=== PATIENT | female | born 1935 | race Caucasian/White ===

== ENCOUNTER 2016-10-20 08:37 | Outpatient (CLI) | payer MEDICARE, OTHER | END 2016-10-20 08:38 | disposition home or self-care (01) | DX: I48.0 Paroxysmal atrial fibrillation (principal) ==

== ENCOUNTER 2017-02-24 08:33 | Outpatient (CLI) | payer MEDICARE, OTHER ==
[2017-02-24 12:02] LABS: CREATININE 0.7 mg/dL (0.4-1.0)
== END 2017-02-24 08:34 | disposition home or self-care (01) ==
LOC: LAB.F 08:33
PROVIDERS: ATTEND Nurse Practitioner
DX: I48.0 Paroxysmal atrial fibrillation (principal)
CPT/HCPCS: 36415; 82565

== ENCOUNTER 2017-04-24 10:19 | Inpatient (IN) | payer MEDICARE, OTHER ==
[2017-04-24] MEDS ORDERED: IPRATROPIUM/ALBUTEROL 3 ML NEB INH STA (10:33)
--- NOTE | 2017-04-24 10:36 | ED Physician Documentation ---
PD HPI DYSPNEA - Stated complaint Stated Complaint: COUGH/SOA - Chief complaint Chief Complaint: Resp - History obtained from History obtained from: Patient, Family (Spouse) - History of Present Illness Timing - onset: How many days ago (4) Timing - duration: Days (4) Timing - details: Gradual onset Worsened by: Coughing Associated symptoms: Fever, Cough Similar symptoms before: Has not had sx before - Additional information Additional information: The patient is a pleasant 82-year-old female who presents with cough and shortness of breath of 4 days duration. Her cough is productive of sputum, and has been getting progressively worse over the past 4 days. She reports intermittent fever and chills. She denies chest pain, nausea or vomiting, or leg swelling. She denies history of similar symptoms in the past. Her past medical history is significant for atrial fibrillation, for which she is on a atenolol and Xarelto. Review of Systems Constitutional: reports: Fever, Chills Nose: denies: Congestion Throat: reports: Sore throat (Mild) Cardiac: denies: Chest pain / pressure, Palpitations Respiratory: reports: Dyspnea, Cough GI: denies: Abdominal Pain, Nausea, Vomiting : denies: Dysuria Skin: denies: Rash Musculoskeletal: denies: Back pain, Extremity swelling Neurologic: denies: Focal weakness, Numbness, Headache PD PAST MEDICAL HISTORY - Past Medical History Past Medical History: Yes Cardiovascular: Hypertension, High cholesterol, Atrial fibrillation Respiratory: None Endocrine/Autoimmune: None GI: None : None HEENT: Glaucoma, Macular degeneration Psych: None Musculoskeletal: Osteoporosis Derm: None - Past Surgical History Past Surgical History: Yes 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, 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 HEENT: Cataracts, Tonsil/Adenoidectomy - Present Medications Home Medications: Ambulatory Orders Medication Instructions Recorded Confirmed Atenolol [Tenormin] 25 mg PO DAILY 04/24/17 04/24/17 Atorvastatin Calcium 20 mg PO DAILY 04/24/17 04/24/17 Bimatoprost [Lumigan] DAILY 04/24/17 Rivaroxaban [Xarelto] 20 mg PO DAILY 04/24/17 04/24/17 Timolol Maleate/Pf [Timoptic 0.25% 1 drops BID 04/24/17 04/24/17 Ocudose Drop] - Allergies Allergies/Adverse Reactions: Allergies Allergy/AdvReac Type Severity Reaction Status Date / Time morphine Allergy Intermediate Nausea Verified 04/24/17 10:26 - Living Situation Living Situation: reports: With spouse/s.o. Living Arrangement: reports: At home - Social History Does the pt smoke?: No Smoking Status: Never smoker PD ED PE NORMAL - Vitals Vital signs reviewed: Yes (Systolic hypertension initially.) - General General: Alert and oriented X 3, Well developed/nourished - HEENT HEENT: Atraumatic, EOMI, Pharynx benign - Neck Neck: Supple, no meningeal sign, No adenopathy, No JVD - Cardiac Cardiac: RRR, No murmur - Respiratory Respiratory: Other (Faint expiratory wheezes, with crackles, worse on the left than the right.) - Abdomen Abdomen: Soft, Non tender - Back Back: No CVA TTP - Derm Derm: No rash - Extremities Extremities: No edema, No calf tenderness / cord - Neuro Neuro: Alert and oriented X 3, No motor deficit, Normal speech Results - Vitals Vitals: Vital Signs - 24 hr 04/24/17 04/24/17 04/24/17 10:23 10:45 11:45 Temperature 37 C Heart Rate 62 76 81 Respiratory 20 16 16 Rate Blood Pressure 173/67 H O2 Saturation 97 04/24/17 04/24/17 04/24/17 13:35 13:45 14:00 Temperature 37.7 C H Heart Rate 87 82 Respiratory 18 16 Rate Blood Pressure 159/55 H O2 Saturation 97 04/24/17 17:04 Temperature Heart Rate 116 H Respiratory Rate Blood Pressure 158/78 H O2 Saturation 95 Oxygen O2 Source Room air - EKG (time done) 10:40 Rate: Rate (enter#) (75) Rhythm: NSR, LAE [place]: Normal QRS: Normal Ischemia: Normal ST segments Computer interpretation: Agree with computer - Labs Labs: Laboratory Tests 04/24/17 04/24/17 04/24/17 10:52 10:52 12:37 WBC 23.3 H RBC 4.24 Hgb 12.8 Hct 38.7 MCV 91.2 MCH 30.2 MCHC 33.2 RDW 13.7 Plt Count 289 MPV 7.8 L Neut # 19.9 H Lymph # 0.8 L [place] # 2.2 H Eos # 0.2 Baso # 0.1 Absolute Nucleated RBC 0.01 Nucleated RBCs 0.0 WBC Morphology NORMAL APPEARANCE Platelet Estimate NORMAL (130-450,000) Platelet Morphology NORMAL APPEARANCE RBC Morph Micro Appear NORMAL APPEARANCE Sodium 132 L Potassium 4.3 Chloride 96 L Carbon Dioxide 29 Anion Gap 7.0 BUN < 5 L Creatinine 0.8 Estimated GFR (MDRD) 69 L Glucose 128 H Lactic Acid Calcium 9.3 Total Bilirubin 0.6 AST 31 ALT 27 Alkaline Phosphatase 72 Total Protein 7.4 Albumin 3.8 Globulin 3.6 Albumin/Globulin Ratio 1.1 Lipase 41 Influenza A (Rapid) Negative Influenza B (Rapid) Negative Influenza Types A,B Ag - 04/24/17 14:37 WBC RBC Hgb Hct MCV MCH MCHC RDW Plt Count MPV Neut # Lymph # [place] # Eos # Baso # Absolute Nucleated RBC Nucleated RBCs WBC Morphology Platelet Estimate Platelet Morphology RBC Morph Micro Appear Sodium Potassium Chloride Carbon Dioxide Anion Gap BUN Creatinine Estimated GFR (MDRD) Glucose Lactic Acid 1.0 Calcium Total Bilirubin AST ALT Alkaline Phosphatase Total Protein Albumin Globulin Albumin/Globulin Ratio Lipase Influenza A (Rapid) Influenza B (Rapid) Influenza Types A,B Ag - Rads (name of study) 2-view CXR Radiology: Prelim report reviewed, EMP read contemporaneously, See rad report ( No acute intrathoracic plain film abnormality. 0.5 cm focal radiopacity at the inferior margin of the lateral right fifth rib on frontal view could represent granuloma or skin calcification. Heart size is normal. There is mild thoracic aortic tortuosity.) PD MEDICAL DECISION MAKING - ED course Complexity details: reviewed results, re-evaluated patient, considered differential, d/w patient, d/w family, d/w configuration consultant ED course: The patient's presentation is most consistent with pneumonia with cough, fever, and dyspnea. Her chest x-ray does not reveal a discrete pulmonary infiltrate. However she has significant sputum production, particularly after nebulizer treatments. Her white count is significantly elevated at 23.3. Her presentation does not suggest congestive heart failure, pulmonary embolus, and her influenza swab is negative. Treatment in the emergency department included DuoNeb nebulizer, followed by albuterol nebulizer, followed later by Xopenex nebulizer. These treatments resulted in increased sputum production and increased pulmonary crackles, particularly on the left. Acetaminophen 1 g was administered orally, and ceftriaxone 1 g was administered IV. I discussed her condition with the hospitalist, who will admit her for further evaluation and treatment. Departure - Departure Disposition: 66 [facility] DC/Xfer Clinical Impression: Bronchitis Pneumonia Qualifiers: Pneumonia type: due to unspecified organism Laterality: unspecified laterality Lung location: unspecified part of lung Qualified Code(s): J18.9 - Pneumonia, unspecified organism Dyspnea Qualifiers: Dyspnea type: shortness of breath Qualified Code(s): R06.02 - Shortness of breath Condition: Stable Discharge Date/Time: 04/24/17 18:00
[2017-04-24] MEDS ORDERED: IPRATROPIUM/ALBUTEROL 3 ML NEB INH ONE (10:43)
[2017-04-24 10:58] LABS: BASOPHILS # (AUTO) 0.1 10^3/uL (0.0-0.1); BASOPHILS % (AUTO) 0.3 %; EOSINOPHILS # (AUTO) 0.2 10^3/uL (0.0-0.7); EOSINOPHILS % (AUTO) 0.9 %; HCT - HEMATOCRIT 38.7 % (37.0-47.0); HGB - HEMOGLOBIN 12.8 g/dL (12.0-16.0); LYMPHOCYTES # (AUTO) 0.8 10^3/uL (1.5-3.5); LYMPHOCYTES % (AUTO) 3.5 %; MEAN CORPUSCULAR HEMOGLOBIN 30.2 pg (27.0-31.0); MEAN CORPUSCULAR HGB CONC 33.2 g/dL (32.0-36.0); MEAN CORPUSCULAR VOLUME 91.2 fL (81.0-99.0); MEAN PLATELET VOLUME 7.8 fL (7.9-10.8); MONOCYTES # (AUTO) 2.2 10^3/uL (0.0-1.0); MONOCYTES % (AUTO) 9.6 %; NEUTROPHILS # (AUTO) 19.9 10^3/uL (1.5-6.6); NEUTROPHILS % (AUTO) 85.7 %; RED BLOOD COUNT 4.24 10^6/uL (4.20-5.40); RED CELL DISTRIBUTION WIDTH 13.7 % (12.0-15.0); UNCORRECTED WHITE BLOOD COUNT 23.3 x10^3/uL; WHITE BLOOD COUNT 23.3 x10^3/uL (4.8-10.8)
[2017-04-24] MEDS ORDERED: cefTRIAXone 1 GM VIAL IVP STA (11:43)
[2017-04-24] MEDS ORDERED: ALBUTEROL NEB 2.5 MG/3 ML INH STA (11:43)
[2017-04-24] MEDS ORDERED: ALBUTEROL NEB 2.5 MG/3 ML INH ONE (11:47)
--- NOTE | 2017-04-24 11:47 | XRAY Preliminary Report ---
Exam: XR Chest 2 View PA/LAT IMPRESSION: 1. No acute intrathoracic plain film abnormality. 2. 0.5 cm focal radiopacity at the inferior margin of the lateral right fifth rib on frontal view cou ld represent granuloma or skin calcification. 3. Heart size is normal. There is mild thoracic aortic tortuosity. [facility] SITE ID: [id number]
[2017-04-24] MEDS ORDERED: cefTRIAXone 1 GM VIAL ONE (11:49)
--- NOTE | 2017-04-24 11:49 | XRAY Report ---
EXAM: CHEST RADIOGRAPHY EXAM DATE: 04/24/2017 11:27 AM. CLINICAL HISTORY: Cough and dyspnea. COMPARISON: 08/07/2011. TECHNIQUE: 2 views. FINDINGS: Lungs/Pleura: No evidence of lobar infiltrate. Small rounded opacity at the inferior margin of the po sterior right fifth rib may represent small granuloma. No pleural effusion. No pneumothorax. Lungs ar e well expanded. Mediastinum: Mild thoracic aortic tortuosity. Heart size is within normal limits. Other: None. IMPRESSION: 1. No acute intrathoracic plain film abnormality. 2. 0.5 cm focal radiopacity at the inferior margin of the lateral right fifth rib on frontal view cou ld represent granuloma or skin calcification. 3. Heart size is normal. There is mild thoracic aortic tortuosity. [facility] Referring Provider Line: [phone] SITE ID: [id number]
[2017-04-24 11:50] LABS: ALBUMIN/GLOBULIN RATIO 1.1 (1.0-2.2); BILIRUBIN,TOTAL 0.6 mg/dL (0.2-1.0); BUN - BLOOD UREA NITROGEN < 5 mg/dL (6-20); CALCIUM 9.3 mg/dL (8.5-10.3); CARBON DIOXIDE - CO2 29 mmol/L (21-32); CHLORIDE 96 mmol/L (101-111); CREATININE 0.8 mg/dL (0.4-1.0); GFR - MDRD 69 (>89); GLUCOSE 128 mg/dL (70-100); LIPASE 41 U/L (22-51); POTASSIUM 4.3 mmol/L (3.5-5.0); SODIUM 132 mmol/L (135-145); TOTAL PROTEIN 7.4 g/dL (6.7-8.2)
[2017-04-24 11:53] LABS: PLATELET ESTIMATE, MANUAL NORMAL (130-450,000) (NORMAL); PLATELET MORPHOLOGY NORMAL APPEARANCE (NORMAL)
[2017-04-24 11:56] LABS: WBC MORPHOLOGY (MULTIPLE) NORMAL APPEARANCE (NORMAL)
[2017-04-24] MEDS ORDERED: LEVALBUTEROL 1.25 MG INH STA (13:31)
[2017-04-24] MEDS ORDERED: SODIUM CHLORIDE INHALATION 3 ML NEB ONE (13:43)
[2017-04-24] MEDS ORDERED: LEVALBUTEROL 1.25 MG INH ONE (13:43)
[2017-04-24] MEDS ORDERED: ACETAMINOPHEN 325 MG TABLET PO STA (14:06)
[2017-04-24] MEDS ORDERED: ACETAMINOPHEN 500 MG TABLET PO ONE (14:09)
[2017-04-24] MEDS ORDERED: SODIUM CHLORIDE FLUSH 0.9% 10 ML SYRINGE IVP PRN (17:20)
[2017-04-24] MEDS ORDERED: ONDANSETRON 4 MG/2 ML VIAL IVP PRN (17:20)
[2017-04-24] MEDS ORDERED: ZOLPIDEM 5 MG TABLET PO PRN (17:20)
--- NOTE | 2017-04-24 17:58 | HISTORY & PHYSICAL EXAMINATION ---
Chief Complaint - Chief Complaint Chief Complaint: dyspnea History of Present Illness - Admitted From Admitted From:: emergence department - History Obtained From History obtained from: patient - History of Present Illness HPI Comment/Other: This is a pleasant 82-year-old female with significant past medical history of Afib with Atenolol and Xarelto, HTN, Hyperlipidemia, Glaucoma, Macular degeneration, osteoporosis, who presents emergence department for evaluation of shortness of breath. Patient report she has been sick with cough and shortness of breath about one week. She felt feverish and chill for last two days but she did not measure the exact temperature. She report her cough is with production of sputum, color of sputum is white. She report she also feel difficult to cough out the sputum. her cough and shortness of murray has been getting progressively worse over the past 4 days. She denies chest pain, headache, muscle pain, abdominal pain, nausea or vomiting, diarrhea or leg swelling. She appears pallor, but She denies any GI bleeding, hematuria. She denies recent travel. She is the only person sick at her home. She denies history of similar symptoms in the past. Her chest x-ray does not reveal a discrete pulmonary infiltrate or consolidation. The Influenza A and B test are negative. Her white count is significantly elevated at 23.3 with left shift. Her HGB is 12.8. BUN and Creatinine are unremarkable. Her sodium is 132, potassium is normal patient is admitted for pneumonia. Review of Systems - Constitutional Constitutional: reports: Fatigue, Fever, Chills. denies: Malaise, Poor appetite , Diaphoresis, Night sweats, Weight gain, Weight loss - Eyes Eyes: denies: Pain, Irritation, Amaurosis, Blurred vision, Spots in vision, Field loss, Vision loss - Ears, Nose & Throat Ears, Nose & Throat: reports: Nasal congestion. denies: Ear pain, Hearing loss , Hearing aids, Tinnitus, Vertigo, Nasal pain, Nosebleeds, Mouth lesions, Bleeding gums - Cardiovascular Cariovascular: denies: Irregular heart rate, Palpitations, Chest pain, Lightheadedness, Syncope, Exertional dyspnea, Orthopnea - Respiratory Respiratory: reports: Cough, Sputum production, SOB with exertion. denies: Wheezing, Hemoptysis, Orthopnea, Apnea - Gastrointestinal Gastrointestinal: denies: Abdominal pain, Abdominal distention, Constipation, Diarrhea, Rectal bleeding, Black stools, Bloody stools, Nausea, Vomiting, [place] blood emesis, Coffee grounds emesis, Reflux/heartburn - Genitourinary Genitourinary: denies: Dysuria, Frequency, Urgency, Hematuria, Incontinence, Flank pain, Nocturia - Musculoskeletal Musculoskeletal: denies: Muscle pain, Back pain, Muscle aches, Stiffness, Limited range of motion, Gout, Joint pain - Integumentary Integumentary: denies: Rash, Pruritis, Lesions, Pigment changes - Neurological Neurological: denies: General weakness, Focal weakness, Headache, Dizziness, Numbness, Memory problems, Abnormal gait, Seizures, Incoordination, Slurred speech - Psychiatric Psychiatric: denies: Depression, Anxiety, Suicidal, Delusions, Hallucinations - Endocrine Endocrine: denies: Polyuria, Polydypsia, Polyphagia, Intolerance to cold, Intolerance to heat - Hematologic/Lymphatic Hematologic/Lymphatic: denies: Anemia, Bruising, Blood clots, Lymphadenopathy, Recurrent infections History - Past Medical History Cardiovascular: reports: Hypertension, High cholesterol, Atrial fibrillation Respiratory: reports: None Endocrine/Autoimmune: reports: None GI: reports: None : reports: None HEENT: reports: Glaucoma, Macular degeneration Psych: reports: None Musculoskeletal: reports: Osteoporosis Derm: reports: None - Past Surgical History General: 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 - Substance History Use: Uses substance without health or social issues: NONE Abuse: Recurrent use of substance despite neg consequences: NONE Dependence: Experiences withdrawal or developed tolerances: NONE Meds/Allgy - Home Medications Home Medications: Ambulatory Orders Medication Instructions Recorded Confirmed Atenolol [Tenormin] 25 mg PO DAILY 04/24/17 04/24/17 Atorvastatin Calcium 20 mg PO DAILY 04/24/17 04/24/17 Bimatoprost [Lumigan] DAILY 04/24/17 Rivaroxaban [Xarelto] 20 mg PO DAILY 04/24/17 04/24/17 Timolol Maleate/Pf [Timoptic 0.25% 1 drops BID 04/24/17 04/24/17 Ocudose Drop] - Allergies Allergies/Adverse Reactions: Allergies Allergy/AdvReac Type Severity Reaction Status Date / Time morphine Allergy Intermediate Nausea Verified 04/24/17 10:26 Exam - Physical Exam General Appearance: positive: No acute distress, Alert. negative: Lethargic Eyes Bilateral: positive: Normal inspection, PERRL. negative: No lid inflammation, Conjunctivae nml ENT: positive: ENT inspection nml, Pharynx nml, No signs of dehydration. negative: Purulent nasal drainage, Pharyngeal erythema Neck: positive: Nml inspection, Thyroid nml, No JVD, Trachea midline. negative : Lymphadenopathy (R), Lymphadenopathy (L), Stiff neck, Tracheal deviation Respiratory: positive: Chest non-tender, No respiratory distress. negative: Wheezes, Rales Cardiovascular: positive: Regular rate & rhythm, No murmur, No gallop, Tachycardia. negative: Bradycardia, Systolic murmur, Diastolic murmur Peripheral Pulses: positive: 2+ Abdomen: positive: Non-tender, No organomegaly, Nml bowel sounds, No distention. negative: Tenderness, Guarding, Rebound Back: positive: Nml inspection. negative: CVA tenderness (R), CVA tenderness (L ) Skin: positive: Color nml, No rash, Warm, Dry. negative: Diaphoresis, Skin rash Extremities: positive: Non-tender, Full ROM, Nml appearance. negative: Calf tenderness, Joint swelling Neurologic/Psychiatric: positive: Oriented x3, Sensation nml, Mood/affect nml. negative: Sensory loss, Facial droop, Slurred/abnml speech, Depressed mood/ affect Conclusion/Plan - Problem List (1) Pneumonia Conclusion/Plan: Clinically pt has been sick with cough with sputum, SOB for a week, and fever and chill, influenza A and B test are negative, although CXR does not show infiltration or consolidation yet, it appear bacterial infection, and pneumonia , elevated WBC 23 treat with CAP, rocephin and Azithyromycin Blood and sputum culture, follow up check lactic acid, daily CBC, CMP,Mag Qualifiers: Pneumonia type: due to unspecified organism Laterality: unspecified laterality Lung location: unspecified part of lung Qualified Code(s): J18.9 - Pneumonia, unspecified organism (2) Dyspnea Conclusion/Plan: O2 NC PRN, consult with RT albuteral and Duoneb PRN Qualifiers: Dyspnea type: shortness of breath Qualified Code(s): R06.02 - Shortness of breath (3) Afib Conclusion/Plan: resume home meds Atenolol and Xarelto closely monitor tele, vital check (4) HTN (hypertension) Conclusion/Plan: stable, reconciliation of home medication Atenolol (5) Hyperlipidemia Conclusion/Plan: resume Lipitor (6) Glaucoma Conclusion/Plan: resume of home medication after reconciliation by pharmacy - Lab Results Fish Bones: 04/24/17 10:52 04/24/17 10:52 Issues/Core Measures - Anticipated LOS Anticipated Stay Length: 2 or more midnights - Issues Hospital Issues and Management Plan: pt take Xarelto now. DVT prophylaxis with SCD - DVT/VTE - Prophylaxis VTE/DVT Device ordered at admit?: Yes
[2017-04-24] MEDS ORDERED: SODIUM CHLORIDE FLUSH 0.9% 10 ML SYRINGE IVP ONE (18:14)
[2017-04-24] MEDS: SODIUM CHLORIDE 0.9% 1,000 ML IV SCH (18:33)
[2017-04-24] MEDS ORDERED: AZITHROMYCIN INJ 500 MG in SODIUM CHLORIDE 0.9% 250 ML IV SCH (19:00)
[2017-04-24] MEDS: RIVAROXABAN 10 MG TABLET PO SCH (19:18)
[2017-04-24] MEDS: ATENOLOL 25 MG TABLET PO SCH (19:18)
[2017-04-24] MEDS: SODIUM CHLORIDE FLUSH 0.9% 10 ML SYRINGE IVP SCH (19:21)
[2017-04-24] MEDS: guaiFENesin 600 MG TABLET PO SCH (21:10)
[2017-04-25] MEDS: ACETAMINOPHEN 325 MG TABLET PO PRN ×3 (01:03→23:54)
[2017-04-25] MEDS: BENZOCAINE/MENTHOL LOZENGE MM PRN ×4 (01:15→20:35)
[2017-04-25] MEDS ORDERED: BENZOCAINE/MENTHOL LOZENGE MM ONE (01:18)
[2017-04-25] MEDS: SODIUM CHLORIDE 0.9% 1,000 ML IV SCH ×2 (05:09→18:47)
[2017-04-25 05:26] LABS: EOSINOPHILS % (AUTO) 0.3 %; HCT - HEMATOCRIT 35.4 % (37.0-47.0); HGB - HEMOGLOBIN 11.7 g/dL (12.0-16.0); LYMPHOCYTES % (AUTO) 7.9 %; MEAN CORPUSCULAR HEMOGLOBIN 30.7 pg (27.0-31.0); MEAN CORPUSCULAR HGB CONC 33.1 g/dL (32.0-36.0); MEAN CORPUSCULAR VOLUME 92.7 fL (81.0-99.0); MONOCYTES % (AUTO) 13.4 %; NEUTROPHILS % (AUTO) 77.4 %; RED BLOOD COUNT 3.82 10^6/uL (4.20-5.40); RED CELL DISTRIBUTION WIDTH 13.6 % (12.0-15.0)
[2017-04-25 05:34] LABS: ALBUMIN/GLOBULIN RATIO 1.1 (1.0-2.2); BILIRUBIN,TOTAL 0.5 mg/dL (0.2-1.0); CALCIUM 8.7 mg/dL (8.5-10.3); CREATININE 0.6 mg/dL (0.4-1.0); MAGNESIUM 1.9 mg/dL (1.7-2.8); POTASSIUM 3.8 mmol/L (3.5-5.0); TOTAL PROTEIN 5.8 g/dL (6.7-8.2)
[2017-04-25 05:48] LABS: BAND NEUTROPHILS % (MANUAL) 8 %; BASOPHILS % (MANUAL) 1 %; LYMPHOCYTES % (MANUAL) 14 %; NEUTROPHILS % (MANUAL) 71 %; TOTAL CELLS COUNTED 100
[2017-04-25 05:50] LABS: NP AUTO DIFFERENTIAL? YES; NP MAN DIFFERENTIAL? NO; PLATELET ESTIMATE, MANUAL NORMAL (130-450,000) (NORMAL); PLATELET MORPHOLOGY 1+ LARGE P (NORMAL)
[2017-04-25] MEDS: SODIUM CHLORIDE FLUSH 0.9% 10 ML SYRINGE IVP SCH ×3 (06:04→20:36)
--- NOTE | 2017-04-25 08:40 | PROVIDER PROGRESS NOTE ---
Assessment/Plan - Problem List (1) Mycobacterium avium-intracellulare infection Assessment/Plan: acute with bronchialectasis and productive cough, seen on CT. start antibiotic treatment with rifampin, clarithrimycin and etambalol. pulmonary contacted at [place] for additional treatment for organism. sputum culture growing rare gram positive cocci. pending sensitivities and specifics. (2) Leukocytosis, unspecified Qualifiers: Leukocytosis type: basophilia Qualified Code(s): D72.824 - Basophilia Assessment/Plan: acute. improving. with elevated basophils and monophils. continue with sputum culture and continue with rocephin IV. continue with blood cultures pending. monitor CBC with daily lab draws (3) Atrial fibrillation with controlled ventricular response Assessment/Plan: chronic. continue on cardizem and atenolol home dosage with PRN as needed. telemetry and cardiac markers have been trended. checked TSH level and normal at 1.81 (4) Benign essential hypertension Assessment/Plan: continue on blood pressure medications home dosage and telemetry (5) Mixed hyperlipidemia Assessment/Plan: chronic. continue with aspirin and lipitor home medication dosage - Current Meds Current Meds: Current Medications Generic Name Dose Route Start Last Admin Trade Name Freq PRN Reason Stop Dose Admin Acetaminophen 650 mg 04/24/17 17:20 04/25/17 01:03 Tylenol PO 650 mg Q4HR PRN Administration Pain 1 to 4 Atenolol 25 mg 04/24/17 19:00 04/24/17 19:18 Tenormin PO 25 mg DAILY GATO Administration Guaifenesin 600 mg 04/24/17 21:00 04/24/17 21:10 Mucinex PO 600 mg BID GATO Administration Sodium Chloride 1,000 mls @ 100 mls/hr 04/24/17 18:00 04/25/17 05:09 Normal Saline 0.9% IV 100 mls/hr .Q10H GATO Administration Azithromycin 500 mg/ Sodium 250 mls @ 250 mls/hr 04/24/17 19:00 04/24/17 18:34 Chloride IV 250 mls/hr DAILY GATO Administration Rivaroxaban 20 mg 04/24/17 19:00 04/24/17 19:18 Xarelto PO 20 mg DAILY GATO Administration Sodium Chloride 10 ml 04/24/17 22:00 04/25/17 06:04 Normal Saline Flush 0.9% IVP Not Given Q8HR GATO Throat Lozenges 1 lozenge 04/25/17 01:04 04/25/17 05:09 Cepacol MM 1 lozenge Q2HR PRN Administration Throat pain - Lab Result Lab results reviewed: Yes Fish Bone Diagrams: 04/25/17 05:05 04/25/17 05:05 Other Lab Results: Abnormal Lab Results 04/24/17 04/24/17 04/25/17 10:52 10:52 05:05 WBC 23.3 x10^3/uL H x10^3/uL 20.0 x10^3/uL H x10^3/uL (4.8-10.8) (4.8-10.8) RBC 3.82 10^6/uL L 10^6/uL (4.20-5.40) Hgb 11.7 g/dL L g/dL (12.0-16.0) Hct 35.4 % L % (37.0-47.0) MPV 7.8 fL L fL (7.9-10.8) Neut # 19.9 10^3/uL H 10^3/uL (1.5-6.6) Lymph # 0.8 10^3/uL L 10^3/uL (1.5-3.5) [place] # 2.2 10^3/uL H 10^3/uL (0.0-1.0) Neutrophils # (Manual) 15.8 10^3/uL H 10^3/uL (1.5-6.6) Monocytes # (Manual) 1.2 10^3/uL H 10^3/uL (0.0-1.0) Basophils # (Manual) 0.2 10^3/uL H 10^3/uL (0-0.1) Sodium 132 mmol/L L mmol/L (135-145) Chloride 96 mmol/L L mmol/L (101-111) Anion Gap BUN < 5 mg/dL L mg/dL (6-20) Estimated GFR (MDRD) 69 L (>89) Glucose 128 mg/dL H mg/dL (70-100) Total Protein Albumin 04/25/17 05:05 WBC RBC Hgb Hct MPV Neut # Lymph # [place] # Neutrophils # (Manual) Monocytes # (Manual) Basophils # (Manual) Sodium Chloride Anion Gap 4.0 L (6-13) BUN Estimated GFR (MDRD) Glucose 109 mg/dL H mg/dL (70-100) Total Protein 5.8 g/dL L g/dL (6.7-8.2) Albumin 3.1 g/dL L g/dL (3.2-5.5) - EKG Results EKG Interpreted Independently: No - Additional Planning Condition/Complexity: Stable Consult/Specialty: OT, PT Plan Discussed with:: Patient Time Spent: 31-60 minutes Additional Planning Notes: Patient is still having increased coughing and will need an additional midnight to work with RT and receive IV medications. She is still weak and might require additional IV medications prior to discharge. Anticipate discharge in the next 24-48 hours Subjective - Subjective Patient Reports: Resting Comfortably, Cough (patient reports a productive cough but "cant bring anything up". She still has a mild fever, sweats but no chills. no chest pain, nausea or vomiting.), Fatigue, Fever Nursing Reports: Cough Objective Vital Signs: Vital Signs - 24 hr 04/24/17 04/24/17 04/24/17 17:59 19:16 20:07 Temperature 37.0 C 36.8 C Heart Rate [ 71 80 Brachial] Respiratory 20 20 Rate Blood Pressure 116/62 Blood Pressure 139/70 H 110/64 [Right Brachial artery] O2 Saturation 95 94 04/25/17 04/25/17 04/25/17 01:00 05:00 08:15 Temperature 37.0 C 37.0 C 37.2 C Heart Rate [ 95 69 66 Brachial] Respiratory 16 16 16 Rate Blood Pressure Blood Pressure 130/69 119/45 L 138/58 H [Right Brachial artery] O2 Saturation 93 93 95 Oxygen O2 Source Room air I&O (Last 24 Hrs): Intake and Output Totals x24h 04/23/17 04/24/17 04/25/17 23:59 23:59 23:59 Intake Total 524 893 Balance 524 893 General: Alert, Oriented x3, Cooperative HEENT: PERRLA, EOMI Neck: Supple, No JVD Lymphatic: no adenopathy Neuro: Alert, CN 2-12 Grossly Intact, Oriented Times 3 Cardiovascular: Normal S1, Normal S2, No murmurs Respiratory: Chest non-tender, No respiratory distress, Other (bronchial in upper lobes bilaterally) Abdomen: Normal bowel sounds, Soft, No tenderness, No hepatospenomegaly Extremities: No clubbing, No cyanosis, No edema, Normal pulses, No tenderness/ swelling Skin: No rashes, No breakdown, No significant lesion - Results Results: Laboratory Results WBC 20.0 x10^3/uL (4.8-10.8) H 04/25/17 05:05 RBC 3.82 10^6/uL (4.20-5.40) L 04/25/17 05:05 Hgb 11.7 g/dL (12.0-16.0) L 04/25/17 05:05 Hct 35.4 % (37.0-47.0) L 04/25/17 05:05 MCV 92.7 fL (81.0-99.0) 04/25/17 05:05 MCH 30.7 pg (27.0-31.0) 04/25/17 05:05 MCHC 33.1 g/dL (32.0-36.0) 04/25/17 05:05 RDW 13.6 % (12.0-15.0) 04/25/17 05:05 Plt Count 254 10^3/uL (130-450) 04/25/17 05:05 MPV 8.0 fL (7.9-10.8) 04/25/17 05:05 Neut # Not Reportable 04/25/17 05:05 Lymph # Not Reportable 04/25/17 05:05 [place] # Not Reportable 04/25/17 05:05 Eos # Not Reportable 04/25/17 05:05 Baso # Not Reportable 04/25/17 05:05 Absolute Nucleated RBC Not Reportable 04/25/17 05:05 Total Counted 100 04/25/17 05:05 Band Neuts % (Manual) 8 % (0-10) 04/25/17 05:05 Neutrophils # (Manual) 15.8 10^3/uL (1.5-6.6) H 04/25/17 05:05 Lymphocytes # (Manual) 2.8 10^3/uL (1.5-3.5) 04/25/17 05:05 Monocytes # (Manual) 1.2 10^3/uL (0.0-1.0) H 04/25/17 05:05 Basophils # (Manual) 0.2 10^3/uL (0-0.1) H 04/25/17 05:05 Nucleated RBCs Not Reportable 04/25/17 05:05 Differential Comment MANUAL DIFFERENTIAL 04/25/17 05:05 WBC Morphology NORMAL APPEARANCE (NORMAL) 04/24/17 10:52 Platelet Estimate NORMAL (130-450,000) (NORMAL) 04/25/17 05:05 Platelet Morphology 1+ LARGE P (NORMAL) 04/25/17 05:05 RBC Morph Micro Appear NORMAL APPEARANCE (NORMAL) 04/25/17 05:05 Sodium 137 mmol/L (135-145) 04/25/17 05:05 Potassium 3.8 mmol/L (3.5-5.0) 04/25/17 05:05 Chloride 105 mmol/L (101-111) 04/25/17 05:05 Carbon Dioxide 28 mmol/L (21-32) 04/25/17 05:05 Anion Gap 4.0 (6-13) L 04/25/17 05:05 BUN 6 mg/dL (6-20) 04/25/17 05:05 Creatinine 0.6 mg/dL (0.4-1.0) 04/25/17 05:05 Estimated GFR (MDRD) 96 (>89) 04/25/17 05:05 Glucose 109 mg/dL (70-100) H 04/25/17 05:05 Lactic Acid 0.8 mmol/L (0.5-2.2) 04/25/17 05:05 Calcium 8.7 mg/dL (8.5-10.3) 04/25/17 05:05 Magnesium 1.9 mg/dL (1.7-2.8) 04/25/17 05:05 Total Bilirubin 0.5 mg/dL (0.2-1.0) 04/25/17 05:05 AST 26 IU/L (10-42) 04/25/17 05:05 ALT 20 IU/L (10-60) 04/25/17 05:05 Alkaline Phosphatase 55 IU/L (42-121) 04/25/17 05:05 Total Protein 5.8 g/dL (6.7-8.2) L 04/25/17 05:05 Albumin 3.1 g/dL (3.2-5.5) L 04/25/17 05:05 Globulin 2.7 g/dL (2.1-4.2) 04/25/17 05:05 Albumin/Globulin Ratio 1.1 (1.0-2.2) 04/25/17 05:05 Lipase 41 U/L (22-51) 04/24/17 10:52 Influenza A (Rapid) Negative (Negative) 04/24/17 12:37 Influenza B (Rapid) Negative (Negative) 04/24/17 12:37 Influenza Types A,B Ag - 04/24/17 12:37 - Procedures Procedures: Procedures CATARAC PHACOEMULS/ASPIR (04/04/13) ENDOSC POLYPECTOMY OF LG INTEST (09/19/13) INSERT LENS AT CATAR EXT (04/04/13)
[2017-04-25] MEDS ORDERED: ATENOLOL 25 MG TABLET PO SCH (09:00)
[2017-04-25] MEDS ORDERED: RIVAROXABAN 10 MG TABLET PO SCH (09:00)
[2017-04-25] MEDS ORDERED: cefTRIAXone 1 GM VIAL IVP SCH (09:00)
[2017-04-25] MEDS: ATORVASTATIN 10 MG TABLET PO SCH (10:12)
[2017-04-25] MEDS: FAMOTIDINE 20 MG TABLET PO SCH (10:12)
[2017-04-25] MEDS: RIVAROXABAN 10 MG TABLET PO SCH ×2 (10:12→20:35)
[2017-04-25] MEDS: ATENOLOL 25 MG TABLET PO SCH ×2 (10:13→20:35)
[2017-04-25] MEDS: guaiFENesin 600 MG TABLET PO SCH ×2 (11:26→20:36)
[2017-04-25] MEDS ORDERED: IPRATROPIUM/ALBUTEROL 3 ML NEB INH ONE (11:44)
[2017-04-25] MEDS ORDERED: BENZONATATE 100 MG CAPSULE PO PRN (11:44)
[2017-04-25] MEDS: SODIUM CHLORIDE INHALATION 3 ML NEB INH PRN ×3 (13:57→22:55)
[2017-04-25] MEDS: LEVALBUTEROL 1.25 MG INH PRN ×3 (13:57→22:55)
[2017-04-25] MEDS: methylPREDNISolone SUCCINATE 125 MG/2 ML VIAL IVP SCH ×2 (15:34→16:35)
[2017-04-25] MEDS: POLYETHYLENE GLYCOL 3350 17 GM PACKET PO SCH (16:49)
--- NOTE | 2017-04-25 19:35 | CT Report ---
CT CHEST WITHOUT CONTRAST: 04/25/2017 CLINICAL INDICATION: Continued cough. COMPARISON: Chest x-ray 04/24/2017. Axial CT images of the chest were obtained without intravenous contrast. In accordance with CT protocol optimization, one or more of the following dose reduction techniques w ere utilized for this exam: automated exposure control, adjustment of mA and/or KV based on patient size, or use of iterative reconstructive technique. The heart and great vessels demonstrate mild atherosclerotic calcifications. No hilar or mediastinal lymphadenopathy is present. 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 No effusion or pneumotho rax is present. Limited evaluation of upper abdominal structures demonstrates normal adrenal glands. Osseous structures demonstrate degenerative changes. 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 JOB #: [id number] EXT JOB #:[id number]
[2017-04-25 20:24] LABS: BILIRUBIN,URINE NEGATIVE (NEGATIVE)
[2017-04-25 20:39] LABS: UR CULTURE IF IND NOT INDICATED; WBC,URINE 0-3 /HPF (0-5)
[2017-04-25] MEDS ORDERED: RIFAMPIN IV SCH (21:00)
[2017-04-25] MEDS ORDERED: CLARITHROMYCIN 500 MG TABLET PO SCH (21:00)
[2017-04-25] MEDS ORDERED: SODIUM CHLORIDE 0.9% IV SCH (21:00)
[2017-04-25] MEDS: ETHAMBUTOL 400 MG TABLET PO SCH (21:27)
[2017-04-26] MEDS: SODIUM CHLORIDE 0.9% 1,000 ML IV SCH ×2 (03:12→13:58)
[2017-04-26 05:23] LABS: INR 1.8 (0.8-1.2)
[2017-04-26] MEDS: SODIUM CHLORIDE FLUSH 0.9% 10 ML SYRINGE IVP SCH ×3 (05:27→21:40)
[2017-04-26] MEDS: SODIUM CHLORIDE INHALATION 3 ML NEB INH PRN ×4 (05:55→19:30)
[2017-04-26] MEDS: LEVALBUTEROL 1.25 MG INH PRN ×4 (05:55→19:30)
[2017-04-26] MEDS: ACETAMINOPHEN 325 MG TABLET PO PRN ×3 (06:46→21:20)
--- NOTE | 2017-04-26 07:51 | PROVIDER PROGRESS NOTE ---
Assessment/Plan - Problem List (1) Mycobacterium avium-intracellulare infection Assessment/Plan: improving. patient was started on antibiotics clarithmycin, rifampin for HALIMA infection. She is receiving xopenex treatments Q4 hours per RT. She is using the Accapella. She has refused steroids. She is pending cultures. 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 [address] but this may be due to the inhaled steroids. patient states she is feeling better and not coughing as much. will continue to monitor with daily lab draws and monitor for signs of fever and chills or sweats. (3) Atrial fibrillation with controlled ventricular response Assessment/Plan: ongoing. unstable. patient was in the high 160s for heart rate and was given lopressor 5mg IV PRN Q6 hours. she continued and was then placed on cardizem. she was started back on Xarelto for Afib. will continue on telemetry and monitor for chest pain (4) Benign essential hypertension Assessment/Plan: stable. continue on blood pressure medications home dosage (5) Mixed hyperlipidemia Assessment/Plan: stable. continue on statin therapy home dosage. - Current Meds Current Meds: Current Medications Generic Name Dose Route Start Last Admin Trade Name Freq PRN Reason Stop Dose Admin Acetaminophen 650 mg 04/24/17 17:20 04/26/17 06:46 Tylenol PO 650 mg Q4HR PRN Administration Pain 1 to 4 Atenolol 25 mg 04/25/17 21:00 04/25/17 20:35 Tenormin PO 25 mg QPM GATO Administration Atorvastatin Calcium 20 mg 04/25/17 09:00 04/25/17 10:12 Lipitor PO 20 mg DAILY GATO Administration Benzonatate 100 mg 04/25/17 11:44 04/26/17 05:34 Tessalon PO 100 mg TID PRN Administration Cough Ethambutol HCl 800 mg 04/25/17 21:00 04/25/17 21:27 Myambutol PO Not Given BID GATO Famotidine 20 mg 04/25/17 09:00 04/25/17 10:12 Pepcid PO 20 mg DAILY GATO Administration Guaifenesin 600 mg 04/24/17 21:00 04/25/17 20:36 Mucinex PO Not Given BID GATO Sodium Chloride 1,000 mls @ 100 mls/hr 04/24/17 18:00 04/26/17 03:12 Normal Saline 0.9% IV 100 mls/hr .Q10H GATO Administration Levalbuterol HCl 1.25 mg 04/25/17 14:00 04/26/17 05:55 Xopenex INH 1.25 mg RTQ4H PRN Administration Wheezing Polyethylene Glycol 17 gm 04/25/17 09:00 04/25/17 16:49 Miralax PO 17 gm DAILY GATO Administration Rivaroxaban 20 mg 04/25/17 21:00 04/25/17 20:35 Xarelto PO 20 mg QPM GATO Administration Sodium Chloride 10 ml 04/24/17 22:00 04/26/17 05:27 Normal Saline Flush 0.9% IVP Not Given Q8HR GATO Sodium Chloride 3 ml 04/25/17 13:23 04/26/17 05:55 Normal Saline INH 3 ml PRN PRN Administration Levalbuterol treatment Throat Lozenges 1 lozenge 04/25/17 01:04 04/25/17 20:35 Cepacol MM 1 lozenge Q2HR PRN Administration Throat pain - Lab Result Lab results reviewed: Yes Fish Bone Diagrams: 04/26/17 08:44 04/26/17 08:44 Other Lab Results: Abnormal Lab Results 04/24/17 04/24/17 04/25/17 10:52 10:52 05:05 WBC 23.3 x10^3/uL H x10^3/uL 20.0 x10^3/uL H x10^3/uL (4.8-10.8) (4.8-10.8) RBC 3.82 10^6/uL L 10^6/uL (4.20-5.40) Hgb 11.7 g/dL L g/dL (12.0-16.0) Hct 35.4 % L % (37.0-47.0) MPV 7.8 fL L fL (7.9-10.8) Neut # 19.9 10^3/uL H 10^3/uL (1.5-6.6) Lymph # 0.8 10^3/uL L 10^3/uL (1.5-3.5) [place] # 2.2 10^3/uL H 10^3/uL (0.0-1.0) Neutrophils # (Manual) 15.8 10^3/uL H 10^3/uL (1.5-6.6) Monocytes # (Manual) 1.2 10^3/uL H 10^3/uL (0.0-1.0) Basophils # (Manual) 0.2 10^3/uL H 10^3/uL (0-0.1) PT INR Sodium 132 mmol/L L mmol/L (135-145) Chloride 96 mmol/L L mmol/L (101-111) Anion Gap BUN < 5 mg/dL L mg/dL (6-20) Estimated GFR (MDRD) 69 L (>89) Glucose 128 mg/dL H mg/dL (70-100) Total Protein Albumin 04/25/17 04/26/17 05:05 05:06 WBC RBC Hgb Hct MPV Neut # Lymph # [place] # Neutrophils # (Manual) Monocytes # (Manual) Basophils # (Manual) PT 20.0 secs H secs (9.9-12.6) INR 1.8 H (0.8-1.2) Sodium Chloride Anion Gap 4.0 L (6-13) BUN Estimated GFR (MDRD) Glucose 109 mg/dL H mg/dL (70-100) Total Protein 5.8 g/dL L g/dL (6.7-8.2) Albumin 3.1 g/dL L g/dL (3.2-5.5) - EKG Results EKG Interpreted Independently: Yes EKG Comparison: Changed from prior EKG (Atrial fibrillation) - Diagnostic Imaging Results Diagnostic Imaging Results: See rad report - Additional Planning Condition/Complexity: Stable My Orders: My Active Orders 04/25/17 11:44 Benzonatate [Tessalon] 100 mg PO TID PRN 04/25/17 13:23 Sodium Chloride [Normal Saline] 3 ml INH PRN PRN 04/25/17 13:24 Nebulizer/MDI Tx. [RC] .q4prn 04/25/17 14:00 Levalbuterol [Xopenex] 1.25 mg INH RTQ4H PRN 04/25/17 15:59 TB Care / Airborne Resp [place] [RC] QSHIFT 04/25/17 21:00 Ethambutol [Myambutol] 800 mg PO BID 04/25/17 22:00 CUL, RESPIRATORY [RM] Urgent 04/26/17 09:00 Clarithromycin [Biaxin] 1,000 mg PO DAILY rifAMPin INJ [Rifadin Inj] 600 mg Sodium Chloride 0.9% 100Ml [Normal Saline 0.9% 100Ml] 100 ml IV DAILY 04/26/17 14:00 Warfarin [Coumadin] 5 mg PO QDWARFARIN Consult/Specialty: OT, PT, Pulmonary (consult with pulmonary at [place]) Plan Discussed with:: Patient, Spouse Time Spent: 31-60 minutes Subjective - Subjective Patient Reports: Resting Comfortably, Cough (improving today but still productive) Nursing Reports: Cough Objective Vital Signs: Vital Signs - 24 hr 04/25/17 04/25/17 04/25/17 08:15 13:00 14:00 Temperature 37.2 C 37.0 C Heart Rate 86 Heart Rate [ 66 75 Brachial] Respiratory 16 16 16 Rate Blood Pressure 138/58 H 142/63 H [Right Brachial artery] O2 Saturation 95 95 04/25/17 04/25/17 04/25/17 15:52 18:40 20:00 Temperature 37.3 C 37.3 C Heart Rate 83 Heart Rate [ 97 95 Brachial] Respiratory 18 18 18 Rate Blood Pressure 150/56 H 147/59 H [Right Brachial artery] O2 Saturation 81 L 90 L 04/25/17 04/25/17 04/26/17 22:55 23:56 05:10 Temperature 37.1 C 37.0 C Heart Rate 79 Heart Rate [ 79 73 Brachial] Respiratory 18 17 16 Rate Blood Pressure 146/58 H 150/79 H [Right Brachial artery] O2 Saturation 96 97 04/26/17 04/26/17 05:55 06:50 Temperature 37.2 C Heart Rate 76 Heart Rate [ 110 H Brachial] Respiratory 18 16 Rate Blood Pressure 169/72 H [Right Brachial artery] O2 Saturation 96 Oxygen O2 Source Room air I&O (Last 24 Hrs): Intake and Output Totals x24h 04/24/17 04/25/17 04/26/17 23:59 23:59 23:59 Intake Total 524 2658 1335 Balance 524 2658 1335 General: Alert, Oriented x3, Cooperative HEENT: Atraumatic, PERRLA, EOMI Neck: Supple, No JVD, No thyromegaly Lymphatic: no adenopathy Neuro: Alert, Non Focal, CN 2-12 Grossly Intact, Oriented Times 3 Cardiovascular: Normal S1, Normal S2, No murmurs (irregular rate and tachycardic ) Respiratory: Chest non-tender, No respiratory distress, Other (diminished and bronchial) Abdomen: Normal bowel sounds, Soft, No tenderness, No hepatospenomegaly Genitourinary: No Discharge Extremities: No clubbing, No cyanosis, No edema, Normal pulses, No tenderness/ swelling Skin: No rashes, No breakdown, No significant lesion - Results Results: Laboratory Results WBC 20.0 x10^3/uL (4.8-10.8) H 04/25/17 05:05 RBC 3.82 10^6/uL (4.20-5.40) L 04/25/17 05:05 Hgb 11.7 g/dL (12.0-16.0) L 04/25/17 05:05 Hct 35.4 % (37.0-47.0) L 04/25/17 05:05 MCV 92.7 fL (81.0-99.0) 04/25/17 05:05 MCH 30.7 pg (27.0-31.0) 04/25/17 05:05 MCHC 33.1 g/dL (32.0-36.0) 04/25/17 05:05 RDW 13.6 % (12.0-15.0) 04/25/17 05:05 Plt Count 254 10^3/uL (130-450) 04/25/17 05:05 MPV 8.0 fL (7.9-10.8) 04/25/17 05:05 Neut # Not Reportable 04/25/17 05:05 Lymph # Not Reportable 04/25/17 05:05 [place] # Not Reportable 04/25/17 05:05 Eos # Not Reportable 04/25/17 05:05 Baso # Not Reportable 04/25/17 05:05 Absolute Nucleated RBC Not Reportable 04/25/17 05:05 Total Counted 100 04/25/17 05:05 Band Neuts % (Manual) 8 % (0-10) 04/25/17 05:05 Neutrophils # (Manual) 15.8 10^3/uL (1.5-6.6) H 04/25/17 05:05 Lymphocytes # (Manual) 2.8 10^3/uL (1.5-3.5) 04/25/17 05:05 Monocytes # (Manual) 1.2 10^3/uL (0.0-1.0) H 04/25/17 05:05 Basophils # (Manual) 0.2 10^3/uL (0-0.1) H 04/25/17 05:05 Nucleated RBCs Not Reportable 04/25/17 05:05 Differential Comment MANUAL DIFFERENTIAL 04/25/17 05:05 WBC Morphology NORMAL APPEARANCE (NORMAL) 04/24/17 10:52 Platelet Estimate NORMAL (130-450,000) (NORMAL) 04/25/17 05:05 Platelet Morphology 1+ LARGE P (NORMAL) 04/25/17 05:05 RBC Morph Micro Appear NORMAL APPEARANCE (NORMAL) 04/25/17 05:05 PT 20.0 secs (9.9-12.6) H 04/26/17 05:06 INR 1.8 (0.8-1.2) H 04/26/17 05:06 Sodium 137 mmol/L (135-145) 04/25/17 05:05 Potassium 3.8 mmol/L (3.5-5.0) 04/25/17 05:05 Chloride 105 mmol/L (101-111) 04/25/17 05:05 Carbon Dioxide 28 mmol/L (21-32) 04/25/17 05:05 Anion Gap 4.0 (6-13) L 04/25/17 05:05 BUN 6 mg/dL (6-20) 04/25/17 05:05 Creatinine 0.6 mg/dL (0.4-1.0) 04/25/17 05:05 Estimated GFR (MDRD) 96 (>89) 04/25/17 05:05 Glucose 109 mg/dL (70-100) H 04/25/17 05:05 Lactic Acid 0.8 mmol/L (0.5-2.2) 04/25/17 05:05 Calcium 8.7 mg/dL (8.5-10.3) 04/25/17 05:05 Magnesium 1.9 mg/dL (1.7-2.8) 04/25/17 05:05 Total Bilirubin 0.5 mg/dL (0.2-1.0) 04/25/17 05:05 AST 26 IU/L (10-42) 04/25/17 05:05 ALT 20 IU/L (10-60) 04/25/17 05:05 Alkaline Phosphatase 55 IU/L (42-121) 04/25/17 05:05 Total Protein 5.8 g/dL (6.7-8.2) L 04/25/17 05:05 Albumin 3.1 g/dL (3.2-5.5) L 04/25/17 05:05 Globulin 2.7 g/dL (2.1-4.2) 04/25/17 05:05 Albumin/Globulin Ratio 1.1 (1.0-2.2) 04/25/17 05:05 Lipase 41 U/L (22-51) 04/24/17 10:52 TSH 1.81 uIU/mL (0.34-5.60) 04/25/17 05:05 Urine Color YELLOW 04/25/17 Unknown Urine Clarity CLEAR (CLEAR) 04/25/17 Unknown Urine pH 6.0 PH (5.0-7.5) 04/25/17 Unknown Ur Specific [place] 1.010 (1.002-1.030) 04/25/17 Unknown Urine Protein NEGATIVE mg/dL (NEGATIVE) 04/25/17 Unknown Urine Glucose (UA) NEGATIVE mg/dL (NEGATIVE) 04/25/17 Unknown Urine Ketones NEGATIVE mg/dL (NEGATIVE) 04/25/17 Unknown Urine Occult Blood NEGATIVE (NEGATIVE) 04/25/17 Unknown Urine Nitrite NEGATIVE (NEGATIVE) 04/25/17 Unknown Urine Bilirubin NEGATIVE (NEGATIVE) 04/25/17 Unknown Urine Urobilinogen 0.2 (NORMAL) E.U./dL (NORMAL) 04/25/17 Unknown Ur Leukocyte Esterase NEGATIVE (NEGATIVE) 04/25/17 Unknown Urine RBC None Seen /HPF (0-5) 04/25/17 Unknown Urine WBC 0-3 /HPF (0-5) 04/25/17 Unknown Ur Squamous Epith Cells FEW Squamous (<= Few) 04/25/17 Unknown Urine Bacteria None Seen /HPF (None Seen) 04/25/17 Unknown Urine Culture Comments NOT INDICATED 04/25/17 Unknown Influenza A (Rapid) Negative (Negative) 04/24/17 12:37 Influenza B (Rapid) Negative (Negative) 04/24/17 12:37 Influenza Types A,B Ag - 04/24/17 12:37 - Procedures Procedures: Procedures CATARAC PHACOEMULS/ASPIR (04/04/13) ENDOSC POLYPECTOMY OF LG INTEST (09/19/13) INSERT LENS AT CATAR EXT (04/04/13)
[2017-04-26 08:51] LABS: BASOPHILS # (AUTO) 0.4 10^3/uL (0.0-0.1); BASOPHILS % (AUTO) 1.6 %; EOSINOPHILS # (AUTO) 0.1 10^3/uL (0.0-0.7); EOSINOPHILS % (AUTO) 0.4 %; HCT - HEMATOCRIT 36.8 % (37.0-47.0); HGB - HEMOGLOBIN 12.1 g/dL (12.0-16.0); LYMPHOCYTES # (AUTO) 1.6 10^3/uL (1.5-3.5); MEAN CORPUSCULAR HEMOGLOBIN 30.5 pg (27.0-31.0); MEAN CORPUSCULAR VOLUME 92.4 fL (81.0-99.0); MEAN PLATELET VOLUME 7.9 fL (7.9-10.8); MONOCYTES # (AUTO) 1.2 10^3/uL (0.0-1.0); MONOCYTES % (AUTO) 4.5 %; NEUTROPHILS # (AUTO) 23.7 10^3/uL (1.5-6.6); NEUTROPHILS % (AUTO) 87.5 %; RED BLOOD COUNT 3.98 10^6/uL (4.20-5.40); UNCORRECTED WHITE BLOOD COUNT 27.1 x10^3/uL; WHITE BLOOD COUNT 27.1 x10^3/uL (4.8-10.8)
[2017-04-26] MEDS ORDERED: METOPROLOL 5 MG/5 ML VIAL IVP PRN ×3 (08:53→18:52)
[2017-04-26] MEDS: POLYETHYLENE GLYCOL 3350 17 GM PACKET PO SCH (08:55)
[2017-04-26] MEDS: FAMOTIDINE 20 MG TABLET PO SCH (08:55)
[2017-04-26] MEDS: ATORVASTATIN 10 MG TABLET PO SCH (08:55)
[2017-04-26] MEDS: guaiFENesin 600 MG TABLET PO SCH ×2 (08:56→21:21)
[2017-04-26] MEDS ORDERED: SODIUM CHLORIDE 0.9% IV SCH (09:00)
[2017-04-26] MEDS ORDERED: RIFAMPIN IV SCH (09:00)
[2017-04-26] MEDS ORDERED: cefTRIAXone 1 GM VIAL IV SCH (09:00)
[2017-04-26 09:18] LABS: ALBUMIN/GLOBULIN RATIO 1.2 (1.0-2.2); BILIRUBIN,TOTAL 0.5 mg/dL (0.2-1.0); BUN - BLOOD UREA NITROGEN < 5 mg/dL (6-20); CALCIUM 9.1 mg/dL (8.5-10.3); CARBON DIOXIDE - CO2 25 mmol/L (21-32); CHLORIDE 105 mmol/L (101-111); CREATININE 0.6 mg/dL (0.4-1.0); GFR - MDRD 96 (>89); GLUCOSE 182 mg/dL (70-100); POTASSIUM 3.6 mmol/L (3.5-5.0); SODIUM 140 mmol/L (135-145); TOTAL PROTEIN 6.9 g/dL (6.7-8.2)
[2017-04-26 09:28] LABS: PLATELET ESTIMATE, MANUAL NORMAL (130-450,000) (NORMAL); PLATELET MORPHOLOGY NORMAL APPEARANCE (NORMAL)
[2017-04-26] MEDS: CLARITHROMYCIN 500 MG TABLET PO SCH (09:51)
[2017-04-26] MEDS: ETHAMBUTOL 400 MG TABLET PO SCH ×2 (09:51→21:40)
[2017-04-26] MEDS: BENZONATATE 100 MG CAPSULE PO PRN (11:12)
[2017-04-26] MEDS: RIVAROXABAN 10 MG TABLET PO SCH (12:56)
[2017-04-26] MEDS ORDERED: WARFARIN 5 MG TABLET PO SCH (14:00)
[2017-04-26] MEDS ORDERED: diltiaZEM 30 MG TABLET PO ONE (16:23)
[2017-04-26] MEDS ORDERED: ALPRAZolam 0.25 MG TABLET PO SCH (19:00)
[2017-04-26] MEDS: ATENOLOL 25 MG TABLET PO SCH (21:27)
[2017-04-27] MEDS: BENZONATATE 100 MG CAPSULE PO PRN ×3 (00:08→21:35)
[2017-04-27] MEDS: SODIUM CHLORIDE 0.9% 1,000 ML IV SCH ×2 (00:11→10:08)
[2017-04-27] MEDS: ACETAMINOPHEN 325 MG TABLET PO PRN ×2 (05:08→21:34)
[2017-04-27] MEDS: SODIUM CHLORIDE FLUSH 0.9% 10 ML SYRINGE IVP SCH ×3 (06:21→21:40)
[2017-04-27] MEDS: SODIUM CHLORIDE INHALATION 3 ML NEB INH PRN ×3 (07:57→16:48)
[2017-04-27] MEDS: LEVALBUTEROL 1.25 MG INH PRN ×3 (07:57→16:49)
--- NOTE | 2017-04-27 08:26 | Discharge Plan ---
Discharge Plan Disposition: 01 Home, Self Care Condition: Good Diet: Cardiac Activity Restrictions: No Restrictions Shower Restrictions: No Driving Restrictions: No Weight Bearing: Full Weight Instruction Topics: Atrial Fibrillation Additional Instructions or Follow Up instructions: 1. Please continue to take home medications as prescribed. You will need to see your primary care provider within the first week after discharge. 2. No Smoking: If you smoke, Please STOP! Call for help.
[2017-04-27] MEDS: FAMOTIDINE 20 MG TABLET PO SCH (08:43)
[2017-04-27] MEDS: ATORVASTATIN 10 MG TABLET PO SCH (08:43)
[2017-04-27] MEDS: ETHAMBUTOL 400 MG TABLET PO SCH ×2 (08:43→21:35)
[2017-04-27] MEDS: ALPRAZolam 0.25 MG TABLET PO PRN ×2 (08:44→21:35)
[2017-04-27] MEDS: guaiFENesin 600 MG TABLET PO SCH ×2 (08:44→21:35)
[2017-04-27] MEDS: POLYETHYLENE GLYCOL 3350 17 GM PACKET PO SCH (08:44)
[2017-04-27] MEDS: CLARITHROMYCIN 500 MG TABLET PO SCH (08:44)
[2017-04-27 09:13] LABS: BASOPHILS # (AUTO) 0.3 10^3/uL (0.0-0.1); BASOPHILS % (AUTO) 1.4 %; EOSINOPHILS # (AUTO) 0.2 10^3/uL (0.0-0.7); EOSINOPHILS % (AUTO) 1.1 %; HCT - HEMATOCRIT 33.9 % (37.0-47.0); HGB - HEMOGLOBIN 11.1 g/dL (12.0-16.0); LYMPHOCYTES # (AUTO) 1.9 10^3/uL (1.5-3.5); LYMPHOCYTES % (AUTO) 10.3 %; MEAN CORPUSCULAR HEMOGLOBIN 30.1 pg (27.0-31.0); MEAN CORPUSCULAR HGB CONC 32.9 g/dL (32.0-36.0); MEAN CORPUSCULAR VOLUME 91.6 fL (81.0-99.0); MEAN PLATELET VOLUME 7.9 fL (7.9-10.8); MONOCYTES # (AUTO) 1.3 10^3/uL (0.0-1.0); MONOCYTES % (AUTO) 7.1 %; NEUTROPHILS # (AUTO) 14.8 10^3/uL (1.5-6.6); NEUTROPHILS % (AUTO) 80.1 %; RED CELL DISTRIBUTION WIDTH 14.2 % (12.0-15.0); UNCORRECTED WHITE BLOOD COUNT 18.4 x10^3/uL; WHITE BLOOD COUNT 18.4 x10^3/uL (4.8-10.8)
[2017-04-27] MEDS: rifAMPin 150 MG CAPSULE PO SCH (09:13)
[2017-04-27 09:36] LABS: BILIRUBIN,TOTAL 0.9 mg/dL (0.2-1.0); BUN - BLOOD UREA NITROGEN < 5 mg/dL (6-20); CALCIUM 8.8 mg/dL (8.5-10.3); CARBON DIOXIDE - CO2 26 mmol/L (21-32); CHLORIDE 106 mmol/L (101-111); CREATININE 0.6 mg/dL (0.4-1.0); GFR - MDRD 96 (>89); GLUCOSE 151 mg/dL (70-100); POTASSIUM 3.3 mmol/L (3.5-5.0); SODIUM 140 mmol/L (135-145)
[2017-04-27 10:15] LABS: PLATELET ESTIMATE, MANUAL NORMAL (130-450,000) (NORMAL); PLATELET MORPHOLOGY NORMAL APPEARANCE (NORMAL)
--- NOTE | 2017-04-27 11:15 | PROVIDER PROGRESS NOTE ---
Assessment/Plan - Problem List (1) Mycobacterium avium-intracellulare infection Assessment/Plan: ongoing but improving. patient still complains of cough and still getting breathing treatments with RT support. will increase Tessalon [place] dosage, add robitussin AC and encourage addition of steroid. 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 continue on dosage of medications for HALIMA infection. transition to all oral and will discharge home on same dosages. (3) Atrial fibrillation with controlled ventricular response Assessment/Plan: controlled and improved. Patient was given Xanax last evening and helped to reduce heart rate. Anxiety might be playing a factor in her elevated heart rate. will continue with lopressor IV PRN. will add xanax BID for anxiety and help with sleep. continue on home medication for rate control already ordered. continue on xarelto dosage as planned with note regarding use with antibiotics prescribed and reactions. patient understands these reactions and was discussed extensively with pharmacy and pulmonary and the benefits outweight the risk for using together. (4) Benign essential hypertension Assessment/Plan: stable. continue with home dosage of blood pressure medications (5) Mixed hyperlipidemia Assessment/Plan: stable. continue on statin home dosage (6) Hypokalemia due to loss of potassium Assessment/Plan: acute, will give potassium replacement and monitor daily with lab draws. - Current Meds Current Meds: Current Medications Generic Name Dose Route Start Last Admin Trade Name Freq PRN Reason Stop Dose Admin Acetaminophen 650 mg 04/24/17 17:20 04/27/17 05:08 Tylenol PO 650 mg Q4HR PRN Administration Pain 1 to 4 Alprazolam 0.5 mg 04/27/17 08:09 04/27/17 08:44 Xanax PO 0.5 mg BID PRN Administration Anxiety Atenolol 25 mg 04/25/17 21:00 04/26/17 21:27 Tenormin PO 25 mg QPM GATO Administration Atorvastatin Calcium 20 mg 04/25/17 09:00 04/27/17 08:43 Lipitor PO 20 mg DAILY GATO Administration Benzonatate 200 mg 04/26/17 10:37 04/27/17 00:08 Tessalon PO 200 mg TID PRN Administration Cough Clarithromycin 1,000 mg 04/26/17 09:00 04/27/17 08:44 Biaxin PO 1,000 mg DAILY GATO Administration Diltiazem HCl 60 mg 04/26/17 18:00 04/27/17 06:26 Cardizem PO 60 mg Q6HR GATO Administration Ethambutol HCl 800 mg 04/25/17 21:00 04/27/17 08:43 Myambutol PO 800 mg BID GATO Administration Famotidine 20 mg 04/25/17 09:00 04/27/17 08:43 Pepcid PO 20 mg DAILY GATO Administration Guaifenesin 600 mg 04/24/17 21:00 04/27/17 08:44 Mucinex PO 600 mg BID GATO Administration Levalbuterol HCl 1.25 mg 04/25/17 14:00 04/27/17 07:57 Xopenex INH 1.25 mg RTQ4H PRN Administration Wheezing Metoprolol Tartrate 5 mg 04/26/17 18:52 04/26/17 19:17 Lopressor Inj IVP 5 mg Q6H PRN Administration Hypertensive Emergency Polyethylene Glycol 17 gm 04/25/17 09:00 04/27/17 08:44 Miralax PO Not Given DAILY GATO Rifampin 600 mg 04/27/17 10:00 04/27/17 09:13 Rifadin PO 600 mg QDAC GATO Administration Rivaroxaban 20 mg 04/25/17 21:00 04/26/17 12:56 Xarelto PO 20 mg QPM GATO Administration Sodium Chloride 10 ml 04/24/17 22:00 04/27/17 06:21 Normal Saline Flush 0.9% IVP Not Given Q8HR [facility] Sodium Chloride 3 ml 04/25/17 13:23 04/27/17 07:57 Normal Saline INH 3 ml PRN PRN Administration Levalbuterol treatment Throat Lozenges 1 lozenge 04/25/17 01:04 04/25/17 20:35 Cepacol MM 1 lozenge Q2HR PRN Administration Throat pain - Lab Result Lab results reviewed: Yes Fish Bone Diagrams: 04/27/17 09:00 04/27/17 09:00 - EKG Results EKG Interpreted Independently: No - Diagnostic Imaging Results Diagnostic Imaging Results: See rad report - Other Other Results/Comments: respiratory culture was negative however was a sample that may not have been viable and not from an induced sputum from the lower lung - Additional Planning Condition/Complexity: Improved My Orders: My Active Orders 04/26/17 10:37 Benzonatate [Tessalon] 200 mg PO TID PRN 04/26/17 16:15 Echo Transthoracic Complete [ECHO] Routine 04/26/17 18:00 diltiaZEM [Cardizem] 60 mg PO Q6HR 04/26/17 18:52 Metoprolol Inj [Lopressor Inj] 5 mg IVP Q6H PRN 04/27/17 08:09 ALPRAZolam [Xanax] 0.5 mg PO BID PRN 04/27/17 10:00 rifAMPin [Rifadin] 600 mg PO QDAC Consult/Specialty: OT, PT Plan Discussed with:: Patient, Family Time Spent: 31-60 minutes (Patient was requesting to stay another night since she is still coughing greatly and still needing more sleep, rest. will need additional medications and breathing treatments.) Subjective - Subjective Patient Reports: Resting Comfortably (patient is still coughing and wanting to "cough it up", she admitted to getting sleep last night), Cough Nursing Reports: No Complaints, Cough Objective Vital Signs: Vital Signs - 24 hr 04/26/17 04/26/17 04/26/17 12:21 12:59 14:25 Temperature 36.8 C Heart Rate Heart Rate [ 160 H 102 H Brachial] Respiratory 16 Rate Blood Pressure Blood Pressure 130/92 H 119/78 [Right Brachial artery] O2 Saturation 96 04/26/17 04/26/17 04/26/17 15:36 15:51 16:07 Temperature 36.5 C Heart Rate 80 Heart Rate [ 56 L 160 H Brachial] Respiratory 20 20 Rate Blood Pressure Blood Pressure 124/58 L [Right Brachial artery] O2 Saturation 100 04/26/17 04/26/17 04/26/17 16:22 18:16 19:17 Temperature Heart Rate Heart Rate [ 145 H Brachial] Respiratory Rate Blood Pressure 154/96 H 154/96 H Blood Pressure 134/84 H [Right Brachial artery] O2 Saturation 95 04/26/17 04/26/17 04/26/17 19:30 19:47 19:58 Temperature 36.7 C Heart Rate 100 Heart Rate [ 117 H 67 Brachial] Respiratory 18 16 Rate Blood Pressure 145/75 H Blood Pressure 145/75 H 129/88 H [Right Brachial artery] O2 Saturation 96 04/26/17 04/26/17 04/27/17 20:08 20:44 00:02 Temperature 36.8 C Heart Rate Heart Rate [ 94 74 94 Brachial] Respiratory 20 Rate Blood Pressure Blood Pressure 135/90 H 132/62 H 148/64 H [Right Brachial artery] O2 Saturation 94 04/27/17 04/27/17 04/27/17 05:32 07:59 08:31 Temperature 36.8 C 37.0 C Heart Rate 80 Heart Rate [ 73 71 Brachial] Respiratory 18 18 Rate Blood Pressure Blood Pressure 168/76 H 169/76 H [Right Brachial artery] O2 Saturation 95 95 Oxygen O2 Source Room air I&O (Last 24 Hrs): Intake and Output Totals x24h 04/25/17 04/26/17 04/27/17 23:59 23:59 23:59 Intake Total 2658 4347 921 Output Total 1700 400 Balance 2658 2647 521 General: Alert, Oriented x3, Cooperative, No acute distress HEENT: Atraumatic, PERRLA, EOMI, Mucous membr. moist/pink Neck: Supple, No JVD, No thyromegaly Neuro: Alert, Non Focal, CN 2-12 Grossly Intact, Oriented Times 3 Cardiovascular: Regular rate, Normal S1, Normal S2 Respiratory: Chest non-tender, No respiratory distress, Other (bronchial sounds) Abdomen: Normal bowel sounds, Soft, No tenderness, No hepatospenomegaly Genitourinary: No Discharge Rectal: Stool - Heme NEG Extremities: No clubbing, No cyanosis, No edema, Normal pulses, No tenderness/ swelling Skin: No rashes, No breakdown, No significant lesion - Results Results: Laboratory Results WBC 18.4 x10^3/uL (4.8-10.8) H 04/27/17 09:00 RBC 3.70 10^6/uL (4.20-5.40) L 04/27/17 09:00 Hgb 11.1 g/dL (12.0-16.0) L 04/27/17 09:00 Hct 33.9 % (37.0-47.0) L 04/27/17 09:00 MCV 91.6 fL (81.0-99.0) 04/27/17 09:00 MCH 30.1 pg (27.0-31.0) 04/27/17 09:00 MCHC 32.9 g/dL (32.0-36.0) 04/27/17 09:00 RDW 14.2 % (12.0-15.0) 04/27/17 09:00 Plt Count 264 10^3/uL (130-450) 04/27/17 09:00 MPV 7.9 fL (7.9-10.8) 04/27/17 09:00 Neut # 14.8 10^3/uL (1.5-6.6) H 04/27/17 09:00 Lymph # 1.9 10^3/uL (1.5-3.5) 04/27/17 09:00 [place] # 1.3 10^3/uL (0.0-1.0) H 04/27/17 09:00 Eos # 0.2 10^3/uL (0.0-0.7) 04/27/17 09:00 Baso # 0.3 10^3/uL (0.0-0.1) H 04/27/17 09:00 Absolute Nucleated RBC 0.00 x10^3/uL 04/27/17 09:00 Total Counted 100 04/25/17 05:05 Band Neuts % (Manual) 8 % (0-10) 04/25/17 05:05 Neutrophils # (Manual) 15.8 10^3/uL (1.5-6.6) H 04/25/17 05:05 Lymphocytes # (Manual) 2.8 10^3/uL (1.5-3.5) 04/25/17 05:05 Monocytes # (Manual) 1.2 10^3/uL (0.0-1.0) H 04/25/17 05:05 Basophils # (Manual) 0.2 10^3/uL (0-0.1) H 04/25/17 05:05 Nucleated RBCs 0.0 /100WBC 04/27/17 09:00 Differential Comment MANUAL DIFFERENTIAL 04/25/17 05:05 WBC Morphology NORMAL APPEARANCE (NORMAL) 04/24/17 10:52 Platelet Estimate NORMAL (130-450,000) (NORMAL) 04/27/17 09:00 Platelet Morphology NORMAL APPEARANCE (NORMAL) 04/27/17 09:00 RBC Morph Micro Appear NORMAL APPEARANCE (NORMAL) 04/27/17 09:00 PT 20.0 secs (9.9-12.6) H 04/26/17 05:06 INR 1.8 (0.8-1.2) H 04/26/17 05:06 Sodium 140 mmol/L (135-145) 04/27/17 09:00 Potassium 3.3 mmol/L (3.5-5.0) L 04/27/17 09:00 Chloride 106 mmol/L (101-111) 04/27/17 09:00 Carbon Dioxide 26 mmol/L (21-32) 04/27/17 09:00 Anion Gap 8.0 (6-13) 04/27/17 09:00 BUN < 5 mg/dL (6-20) L 04/27/17 09:00 Creatinine 0.6 mg/dL (0.4-1.0) 04/27/17 09:00 Estimated GFR (MDRD) 96 (>89) 04/27/17 09:00 Glucose 151 mg/dL (70-100) H 04/27/17 09:00 Lactic Acid 0.8 mmol/L (0.5-2.2) 04/25/17 05:05 Calcium 8.8 mg/dL (8.5-10.3) 04/27/17 09:00 Magnesium 1.8 mg/dL (1.7-2.8) 04/27/17 05:00 Total Bilirubin 0.9 mg/dL (0.2-1.0) 04/27/17 09:00 AST 41 IU/L (10-42) 04/27/17 09:00 ALT 28 IU/L (10-60) 04/27/17 09:00 Alkaline Phosphatase 53 IU/L (42-121) 04/27/17 09:00 Total Protein 6.0 g/dL (6.7-8.2) L 04/27/17 09:00 Albumin 3.0 g/dL (3.2-5.5) L 04/27/17 09:00 Globulin 3.0 g/dL (2.1-4.2) 04/27/17 09:00 Albumin/Globulin Ratio 1.0 (1.0-2.2) 04/27/17 09:00 Lipase 41 U/L (22-51) 04/24/17 10:52 TSH 1.81 uIU/mL (0.34-5.60) 04/25/17 05:05 Urine Color YELLOW 04/25/17 Unknown Urine Clarity CLEAR (CLEAR) 04/25/17 Unknown Urine pH 6.0 PH (5.0-7.5) 04/25/17 Unknown Ur Specific [place] 1.010 (1.002-1.030) 04/25/17 Unknown Urine Protein NEGATIVE mg/dL (NEGATIVE) 04/25/17 Unknown Urine Glucose (UA) NEGATIVE mg/dL (NEGATIVE) 04/25/17 Unknown Urine Ketones NEGATIVE mg/dL (NEGATIVE) 04/25/17 Unknown Urine Occult Blood NEGATIVE (NEGATIVE) 04/25/17 Unknown Urine Nitrite NEGATIVE (NEGATIVE) 04/25/17 Unknown Urine Bilirubin NEGATIVE (NEGATIVE) 04/25/17 Unknown Urine Urobilinogen 0.2 (NORMAL) E.U./dL (NORMAL) 04/25/17 Unknown Ur Leukocyte Esterase NEGATIVE (NEGATIVE) 04/25/17 Unknown Urine RBC None Seen /HPF (0-5) 04/25/17 Unknown Urine WBC 0-3 /HPF (0-5) 04/25/17 Unknown Ur Squamous Epith Cells FEW Squamous (<= Few) 04/25/17 Unknown Urine Bacteria None Seen /HPF (None Seen) 04/25/17 Unknown Urine Culture Comments NOT INDICATED 04/25/17 Unknown Influenza A (Rapid) Negative (Negative) 04/24/17 12:37 Influenza B (Rapid) Negative (Negative) 04/24/17 12:37 Influenza Types A,B Ag - 04/24/17 12:37 - Procedures Procedures: Procedures CATARAC PHACOEMULS/ASPIR (04/04/13) ENDOSC POLYPECTOMY OF LG INTEST (09/19/13) INSERT LENS AT CATAR EXT (04/04/13)
[2017-04-27] MEDS: POTASSIUM CHLORIDE 20 MEQ TABLET PO SCH (13:34)
[2017-04-27] MEDS: guaiFENesin/CODEINE 5 ML UDC PO PRN ×2 (17:27→23:57)
[2017-04-27] MEDS: RIVAROXABAN 10 MG TABLET PO SCH (17:29)
[2017-04-27] MEDS: ATENOLOL 25 MG TABLET PO SCH (21:35)
[2017-04-28] MEDS: rifAMPin 150 MG CAPSULE PO SCH (06:22)
[2017-04-28] MEDS: BENZONATATE 100 MG CAPSULE PO PRN (06:22)
[2017-04-28] MEDS: SODIUM CHLORIDE FLUSH 0.9% 10 ML SYRINGE IVP SCH ×2 (06:22→14:53)
[2017-04-28 07:24] LABS: BASOPHILS % (AUTO) 0.2 %; EOSINOPHILS % (AUTO) 2.8 %; HGB - HEMOGLOBIN 11.9 g/dL (12.0-16.0); LYMPHOCYTES % (AUTO) 12.4 %; MEAN CORPUSCULAR HEMOGLOBIN 30.8 pg (27.0-31.0); MEAN CORPUSCULAR HGB CONC 33.2 g/dL (32.0-36.0); MEAN CORPUSCULAR VOLUME 92.8 fL (81.0-99.0); MEAN PLATELET VOLUME 7.8 fL (7.9-10.8); MONOCYTES % (AUTO) 9.1 %; NEUTROPHILS % (AUTO) 75.5 %; RED BLOOD COUNT 3.88 10^6/uL (4.20-5.40); RED CELL DISTRIBUTION WIDTH 14.2 % (12.0-15.0); UNCORRECTED WHITE BLOOD COUNT 16.6 x10^3/uL; WHITE BLOOD COUNT 16.6 x10^3/uL (4.8-10.8)
[2017-04-28 07:41] LABS: BUN - BLOOD UREA NITROGEN < 5 mg/dL (6-20); CALCIUM 8.9 mg/dL (8.5-10.3); CARBON DIOXIDE - CO2 27 mmol/L (21-32); CHLORIDE 103 mmol/L (101-111); CREATININE 0.6 mg/dL (0.4-1.0); GFR - MDRD 96 (>89); GLUCOSE 105 mg/dL (70-100); POTASSIUM 3.7 mmol/L (3.5-5.0); SODIUM 137 mmol/L (135-145); TOTAL PROTEIN 6.2 g/dL (6.7-8.2)
[2017-04-28] MEDS: POTASSIUM CHLORIDE 20 MEQ TABLET PO SCH (08:27)
--- NOTE | 2017-04-28 08:32 | PROVIDER PROGRESS NOTE ---
Subjective - Prog Note Date Prog Note Date: 04/28/17 - Subjective Pt reports feeling: Improved Subjective: pt state she felt better and request she can stay one more day for more stabilization. Discuss with pt for following up care after discharge, answer all questions. Current Medications - Current Medications Current Medications: Active Medications Acetaminophen (Tylenol) 650 mg PO Q4HR PRN PRN Reason: Pain 1 to 4 Last Admin: 04/27/17 21:34 Dose: 650 mg Alprazolam (Xanax) 0.5 mg PO BID PRN PRN Reason: Anxiety Last Admin: 04/27/17 21:35 Dose: 0.5 mg Atenolol (Tenormin) 25 mg PO QPM [facility] Last Admin: 04/27/17 21:35 Dose: 25 mg Atorvastatin Calcium (Lipitor) 20 mg PO DAILY [facility] Last Admin: 04/27/17 08:43 Dose: 20 mg Benzonatate (Tessalon) 200 mg PO TID PRN PRN Reason: Cough Last Admin: 04/28/17 06:22 Dose: 200 mg Clarithromycin (Biaxin) 1,000 mg PO DAILY [facility] Last Admin: 04/27/17 08:44 Dose: 1,000 mg Diltiazem HCl (Cardizem) 60 mg PO Q6HR [facility] Last Admin: 04/28/17 06:31 Dose: 60 mg Ethambutol HCl (Myambutol) 800 mg PO BID [facility] Last Admin: 04/27/17 21:35 Dose: 800 mg Famotidine (Pepcid) 20 mg PO DAILY [facility] Last Admin: 04/27/17 08:43 Dose: 20 mg Guaifenesin (Mucinex) 600 mg PO BID [facility] Last Admin: 04/27/17 21:35 Dose: 600 mg Guaifenesin/Codeine Phosphate (Robitussin Ac) 5 ml PO Q6HR PRN PRN Reason: Cough Last Admin: 04/27/17 23:57 Dose: 5 ml Levalbuterol HCl (Xopenex) 1.25 mg INH RTQ4H PRN PRN Reason: Wheezing Last Admin: 04/27/17 16:49 Dose: 1.25 mg Metoprolol Tartrate (Lopressor Inj) 5 mg IVP Q6H PRN PRN Reason: Hypertensive Emergency Last Admin: 04/26/17 19:17 Dose: 5 mg Ondansetron HCl (Zofran Inj) 4 mg IVP Q6HR PRN PRN Reason: Nausea / Vomiting Polyethylene Glycol (Miralax) 17 gm PO DAILY [facility] Last Admin: 04/27/17 08:44 Dose: Not Given Potassium Chloride (K-Dur) 20 meq PO DAILYWM [facility] Last Admin: 04/28/17 08:27 Dose: 20 meq Rifampin (Rifadin) 600 mg PO QDAC [facility] Last Admin: 04/28/17 06:22 Dose: 600 mg Rivaroxaban (Xarelto) 20 mg PO QPM [facility] Last Admin: 04/27/17 17:29 Dose: 20 mg Sodium Chloride (Normal Saline Flush 0.9%) 10 ml IVP PRN PRN PRN Reason: NEEDED PER PROVIDER ORDERS Sodium Chloride (Normal Saline Flush 0.9%) 10 ml IVP Q8HR [facility] Last Admin: 04/28/17 06:22 Dose: 10 ml Sodium Chloride (Normal Saline) 3 ml INH PRN PRN PRN Reason: Levalbuterol treatment Last Admin: 04/27/17 16:48 Dose: 3 ml Throat Lozenges (Cepacol) 1 lozenge MM Q2HR PRN PRN Reason: Throat pain Last Admin: 04/25/17 20:35 Dose: 1 lozenge Zolpidem Tartrate (Ambien) 5 mg PO QPM PRN PRN Reason: Insomnia Atenolol [Tenormin] 25 mg PO DAILY 04/24/17 Atorvastatin Calcium 20 mg PO DAILY 04/24/17 Bimatoprost [Lumigan] 1 drp OP DAILY PM 04/24/17 Rivaroxaban [Xarelto] 20 mg PO DAILY 04/24/17 Timolol Maleate/Pf [Timoptic 0.25% Ocudose Drop] 1 drp OP BID 04/24/17 Objective - Vital Signs/Intake & Output Reviewed Vital Signs: Yes Vital Signs: Vital Signs x48h Temp Pulse Resp BP BP Pulse Ox 04/28/17 08:06 37.0 C 74 16 171/76 H 97 04/28/17 06:31 169/84 H 04/28/17 04:45 36.9 C 70 16 131/67 H 96 Intake & Output: Intake & Output 04/25/17 04/26/17 04/27/17 04/28/17 23:59 23:59 23:59 23:59 Intake Total 2658 4347 1341 60 Output Total 1700 400 Balance 2658 2647 941 60 - Objective General Appearance: positive: No acute distress, Alert. negative: Lethargic Eyes Bilateral: positive: Normal inspection, PERRL. negative: No lid inflammation, Conjunctivae nml ENT: positive: ENT inspection nml, Pharynx nml, No signs of dehydration. negative: Purulent nasal drainage, Pharyngeal erythema, Oral lesions Neck: positive: Nml inspection, Thyroid nml, Trachea midline. negative: Thyromegaly, Lymphadenopathy (R), Lymphadenopathy (L), Stiff neck, Swelling/ bruising, Tracheal deviation Respiratory: positive: Chest non-tender, No respiratory distress, Rales. negative: Wheezes, Rhonchi Cardiovascular: positive: Regular rate & rhythm, No murmur, No gallop. negative : Tachycardia, Bradycardia, Systolic murmur, Diastolic murmur Peripheral Pulses: 2+ Radial (R), 2+ Radial (L), 2+ Dorsalis pedis (R), 2+ Dorsalis pedis (L) Abdomen: positive: Non-tender, No organomegaly, Nml bowel sounds, No distention. negative: Tenderness, Guarding, Rebound Back: positive: Nml inspection. negative: CVA tenderness (R), CVA tenderness (L ) Skin: positive: Color nml, No rash, Warm, Dry. negative: Cyanosis, Diaphoresis , Skin rash Extremities: positive: Non-tender, Full ROM, Nml appearance. negative: Pedal edema, Calf tenderness, Zina's sign/cords Neurologic/Psychiatric: positive: Oriented x3, Motor nml, Sensation nml, Mood/ affect nml. negative: Sensory loss, Facial droop, Slurred/abnml speech, Depressed mood/affect - Lab Results Fish Bones: 04/28/17 07:15 04/28/17 07:15 Other Labs: Lab Results x24hrs 04/28/17 04/28/17 04/27/17 Range/Units 07:15 07:15 09:00 WBC 16.6 H (4.8-10.8) x10^3/uL RBC 3.88 L (4.20-5.40) 10^6/uL Hgb 11.9 L (12.0-16.0) g/dL Hct 36.0 L (37.0-47.0) % MCV 92.8 (81.0-99.0) fL MCH 30.8 (27.0-31.0) pg MCHC 33.2 (32.0-36.0) g/dL RDW 14.2 (12.0-15.0) % Plt Count 271 (130-450) 10^3/uL MPV 7.8 L (7.9-10.8) fL Neut # 12.5 H (1.5-6.6) 10^3/uL Lymph # 2.1 (1.5-3.5) 10^3/uL [place] # 1.5 H (0.0-1.0) 10^3/uL Eos # 0.5 (0.0-0.7) 10^3/uL Baso # 0.0 (0.0-0.1) 10^3/uL Absolute Nucleated RBC 0.01 x10^3/uL Nucleated RBCs 0.0 /100WBC Platelet Estimate (NORMAL) Platelet Morphology (NORMAL) RBC Morph Micro Appear (NORMAL) Sodium 137 140 (135-145) mmol/L Potassium 3.7 3.3 L (3.5-5.0) mmol/L Chloride 103 106 (101-111) mmol/L Carbon Dioxide 27 26 (21-32) mmol/L Anion Gap 7.0 8.0 (6-13) BUN < 5 L < 5 L (6-20) mg/dL Creatinine 0.6 0.6 (0.4-1.0) mg/dL Estimated GFR (MDRD) 96 96 (>89) Glucose 105 H 151 H (70-100) mg/dL Calcium 8.9 8.8 (8.5-10.3) mg/dL Total Bilirubin 1.0 0.9 (0.2-1.0) mg/dL AST 36 41 (10-42) IU/L ALT 25 28 (10-60) IU/L Alkaline Phosphatase 73 53 (42-121) IU/L Total Protein 6.2 L 6.0 L (6.7-8.2) g/dL Albumin 3.1 L 3.0 L (3.2-5.5) g/dL Globulin 3.1 3.0 (2.1-4.2) g/dL Albumin/Globulin Ratio 1.0 1.0 (1.0-2.2) // Range/Units 09:00 WBC 18.4 H (4.8-10.8) x10^3/uL RBC 3.70 L (4.20-5.40) 10^6/uL Hgb 11.1 L (12.0-16.0) g/dL Hct 33.9 L (37.0-47.0) % MCV 91.6 (81.0-99.0) fL MCH 30.1 (27.0-31.0) pg MCHC 32.9 (32.0-36.0) g/dL RDW 14.2 (12.0-15.0) % Plt Count 264 (130-450) 10^3/uL MPV 7.9 (7.9-10.8) fL Neut # 14.8 H (1.5-6.6) 10^3/uL Lymph # 1.9 (1.5-3.5) 10^3/uL [place] # 1.3 H (0.0-1.0) 10^3/uL Eos # 0.2 (0.0-0.7) 10^3/uL Baso # 0.3 H (0.0-0.1) 10^3/uL Absolute Nucleated RBC 0.00 x10^3/uL Nucleated RBCs 0.0 /100WBC Platelet Estimate NORMAL (130-450,000) (NORMAL) Platelet Morphology NORMAL APPEARANCE (NORMAL) RBC Morph Micro Appear NORMAL APPEARANCE (NORMAL) Sodium (135-145) mmol/L Potassium (3.5-5.0) mmol/L Chloride (101-111) mmol/L Carbon Dioxide (21-32) mmol/L Anion Gap (6-13) BUN (6-20) mg/dL Creatinine (0.4-1.0) mg/dL Estimated GFR (MDRD) (>89) Glucose (70-100) mg/dL Calcium (8.5-10.3) mg/dL Total Bilirubin (0.2-1.0) mg/dL AST (10-42) IU/L ALT (10-60) IU/L Alkaline Phosphatase (42-121) IU/L Total Protein (6.7-8.2) g/dL Albumin (3.2-5.5) g/dL Globulin (2.1-4.2) g/dL Albumin/Globulin Ratio (1.0-2.2) Assessment/Plan - Problem List (1) Mycobacterium avium-intracellulare complex Impression: clinically pt is getting improved. WBC continue to go down to 16.6 today from previous 27. pt is feeling better, still has cough but better than before. continue ethambutol, rifampine, and clarithromycin discuss with pt the side effect of medications discuss with pt the following care after discharge (2) Dyspnea Impression: room air with SO2 97%, no respiratory distress. Qualifiers: Dyspnea type: shortness of breath Qualified Code(s): R06.02 - Shortness of breath (3) Afib Impression: pt's HR is in the nml. no palpitation, no chest pain. continue Cardizem, Atenolol control. pt did not use metoprolol PRN for control of the HR continue Xarelto (4) HTN (hypertension) Impression: BP stable, since anxiety play role in pt's BP, continue Xanax continue cardizem and Atenolol (6) Glaucoma Impression: reconciliation of Arelis, pt prefer to have Timolol of his own meds on tomorrow
[2017-04-28 08:51] LABS: BAND NEUTROPHILS % (MANUAL) 11 %; BASOPHILS % (MANUAL) 2 %; EOSINOPHILS % (MANUAL) 1 %; LYMPHOCYTES % (MANUAL) 19 %; NEUTROPHILS % (MANUAL) 51 %; TOTAL CELLS COUNTED 100
[2017-04-28 08:53] LABS: PLATELET ESTIMATE, MANUAL NORMAL (130-450,000) (NORMAL); PLATELET MORPHOLOGY NORMAL APPEARANCE (NORMAL)
[2017-04-28 08:54] LABS: NP AUTO DIFFERENTIAL? YES
[2017-04-28 08:55] LABS: NP MAN DIFFERENTIAL? NO
[2017-04-28] MEDS: LEVALBUTEROL 1.25 MG INH PRN ×2 (09:21→14:08)
[2017-04-28] MEDS: SODIUM CHLORIDE INHALATION 3 ML NEB INH PRN ×2 (09:22→14:08)
[2017-04-28] MEDS: CLARITHROMYCIN 500 MG TABLET PO SCH (09:52)
[2017-04-28] MEDS: ATORVASTATIN 10 MG TABLET PO SCH (09:52)
[2017-04-28] MEDS: ETHAMBUTOL 400 MG TABLET PO SCH (09:52)
[2017-04-28] MEDS: FAMOTIDINE 20 MG TABLET PO SCH (09:52)
[2017-04-28] MEDS: guaiFENesin 600 MG TABLET PO SCH (09:53)
[2017-04-28] MEDS: POLYETHYLENE GLYCOL 3350 17 GM PACKET PO SCH (09:53)
--- NOTE | 2017-04-28 11:43 | Discharge Plan ---
Discharge Plan Disposition: Home, Self Care Condition: Stable Prescriptions: diltiaZEM [Cardizem] 60 mg PO Q6HR #60 tablet Clarithromycin [Biaxin] 1,000 mg PO DAILY #15 tablet guaiFENesin [Mucinex] 600 mg PO BID PRN #30 tablet PRN Reason: Cough Ethambutol [Myambutol] 800 mg PO BID #30 tablet rifAMPin [Rifadin] 600 mg PO QDAC #15 capsule Diet: Cardiac Activity Restrictions: Activity as Tolerated Shower Restrictions: No Weight Bearing: Full Weight Instruction Topics: Atrial Fibrillation Additional Instructions or Follow Up instructions: 1. Please continue to take home medications as prescribed. You will need to see your primary care provider within the first week after discharge. 2. May see PCP and infection disease doctor in one week Follow-Up Care: [facility] [place] - Cardiac, [facility] No Smoking: If you smoke, Please STOP! Call for help. Follow-up with: Courtney Cordova MD [Primary Care Provider] -
--- NOTE | 2017-04-28 13:14 | DISCHARGE SUMMARY ---
"Discharge Summary Admit Date: 04/24/17 Discharge Date: 04/28/17 Discharging Provider: CLAYTON Primary Care Provider: Courtney Lopez Code Status: Do Not Attempt Resuscitation Condition at Discharge: Stable Discharge Disposition: 01 Home, Self Care - DIAGNOSES Admission Diagnoses: (1) pneumonia (2) Dyspnea (3) Afib (4) HTN (hypertension) (5) Glaucoma Discharge Diagnoses with Status of Each Condition: (1) Mycobacterium avium-intracellulare complex controlled, stable, continue treatment and follow up ID and PCP (2) Dyspnea resolved, SO2 97% with room air (3) Afib with RVR stable, follow up flight engineer, advise pt make appointment with her flight engineer as soon as pt D/C from hospital, pt state she understand and will call her flight engineer to make appointment (4) HTN (hypertension) stable, follow up PCP (5) Glaucoma stable, - HPI History of Present Illness: please refer from my HPI on 04/24/17 This is a pleasant 82-year-old female with significant past medical history of Afib with Atenolol and Xarelto, HTN, Hyperlipidemia, Glaucoma, Macular degeneration, osteoporosis, who presents emergence department for evaluation of shortness of breath. Patient report she has been sick with cough and shortness of breath about one week. She felt feverish and chill for last two days but she did not measure the exact temperature. She report her cough is with production of sputum, color of sputum is white. She report she also feel difficult to cough out the sputum. her cough and shortness of murray has been getting progressively worse over the past 4 days. She denies chest pain, headache, muscle pain, abdominal pain, nausea or vomiting, diarrhea or leg swelling. She appears pallor, but She denies any GI bleeding, hematuria. She denies recent travel. She is the only person sick at her home. She denies history of similar symptoms in the past. Her chest x-ray does not reveal a discrete pulmonary infiltrate or consolidation. The Influenza A and B test are negative. Her white count is significantly elevated at 23.3 with left shift. Her HGB is 12.8. BUN and Creatinine are unremarkable. Her sodium is 132, potassium is normal patient is admitted for pneumonia. - CONSULTS | PROCEDURES Consultations: My colleague consulted with ID in for pt's new dianosis of HALIMA - HOSPITAL COURSE Hospital Course: pt came with flu and pneumonia symptom, fever and chill, cough with sputum for a week. Initially pt was treated with pneumonia. Pt had CT on 04/25/17. Pt was found HALIMA in CT, then we consulted with ID in . Pt was treated with [facility]IM[facility]. Clinically pt is great improved, no fever, chill, SO2 97% with room air, WBC continue to drop from 27 to 16, clinically pt is stable now. Also pt develop AFib with RVR, pt is stable controlled by medication, Cardizem and home meds Atenolol, and continue to have Xarelto. - ALLERGIES Allergies/Adverse Reactions: Allergies Allergy/AdvReac Type Severity Reaction Status Date / Time morphine Allergy Intermediate Nausea Verified 04/24/17 10:26 - MEDICATIONS Home Medications: Ambulatory Orders Medication Instructions Recorded Confirmed Atenolol [Tenormin] 25 mg PO DAILY 04/24/17 04/24/17 Atorvastatin Calcium 20 mg PO DAILY 04/24/17 04/24/17 Bimatoprost [Lumigan] 1 drp OP DAILY PM 04/24/17 04/25/17 Rivaroxaban [Xarelto] 20 mg PO DAILY 04/24/17 04/24/17 Timolol Maleate/Pf [Timoptic 0.25% 1 drp OP BID 04/24/17 04/25/17 Ocudose Drop] Clarithromycin [Biaxin] 1,000 mg PO DAILY #15 tablet 04/28/17 Ethambutol [Myambutol] 800 mg PO BID #30 tablet 04/28/17 diltiaZEM [Cardizem] 60 mg PO Q6HR #60 tablet 04/28/17 guaiFENesin [Mucinex] 600 mg PO BID PRN #30 tablet 04/28/17 rifAMPin [Rifadin] 600 mg PO QDAC #15 capsule 04/28/17 - PHYSICAL EXAM AT DISCHARGE General Appearance: positive: No acute distress, Alert. negative: Lethargic Eyes Bilateral: positive: Normal inspection, PERRL. negative: No lid inflammation, Conjunctivae nml ENT: positive: ENT inspection nml, Pharynx nml, No signs of dehydration. negative: Purulent nasal drainage, Pharyngeal erythema Neck: positive: Nml inspection, Thyroid nml, No JVD, Trachea midline. negative : Thyromegaly, Lymphadenopathy (R), Lymphadenopathy (L), Stiff neck, Tracheal deviation Respiratory: positive: Chest non-tender, No respiratory distress, Rales Cardiovascular: positive: Regular rate & rhythm, No murmur, No gallop. negative : Tachycardia, Bradycardia, Systolic murmur, Diastolic murmur Peripheral Pulses: positive: 2+ Abdomen: positive: Non-tender, No organomegaly, Nml bowel sounds, No distention. negative: Tenderness, Guarding, Rebound Back: positive: Nml inspection. negative: CVA tenderness (R), CVA tenderness (L ) Skin: positive: Color nml, Warm, Dry. negative: Diaphoresis, Skin rash Extremities: positive: Non-tender, Full ROM, Nml appearance. negative: Calf tenderness, Zina's sign/cords Neurologic/Psychiatric: positive: Oriented x3, Motor nml, Sensation nml, Mood/ affect nml. negative: Sensory loss, Facial droop, Slurred/abnml speech, Depressed mood/affect - LABS Result Diagrams: 04/28/17 07:15 04/28/17 07:15 - FOLLOW UP Follow Up: pt is advised to see PCP in one week, see infection disease doctor and flight engineer as soon as possible."
[2017-04-28 13:44] VITALS: BP 139/73
[2017-04-28] MEDS ORDERED: BIMATOPROST 0.01% OPHTH DROPS 2.5 ML EACHEYE SCH (21:00)
== END 2017-04-28 14:45 | disposition home or self-care (01) | DRG 179 ==
LOC: ED 10:19 → MS2 17:21
PROVIDERS: ADMIT Nurse Practitioner Gerontology; ATTEND Nurse Practitioner Gerontology
DX: A31.0 Pulmonary mycobacterial infection (principal); J40 Bronchitis, not specified as acute or chronic; R06.02 Shortness of breath; I10 Essential (primary) hypertension; E78.00 Pure hypercholesterolemia, unspecified; I48.91 Unspecified atrial fibrillation; E78.5 Hyperlipidemia, unspecified; H40.9 Unspecified glaucoma; H35.30 Unspecified macular degeneration; M81.0 Age-related osteoporosis without current pathological fracture; Z79.02 Long term (current) use of antithrombotics/antiplatelets; Z79.899 Other long term (current) drug therapy
CPT/HCPCS: 36415; 71020; 71250; 80053; 81001; 83605; 83690; 83735; 84443; 85025; 85610; 87040; 87070; 87086; 87205; 87275; 87276; 93005; 93306; 94640; 96374; 99283; 99284

== ENCOUNTER 2017-05-17 08:00 | Outpatient (CLI) | payer MEDICARE, OTHER ==
[2017-05-17 11:11] LABS: CREATININE 0.7 mg/dL (0.4-1.0)
== END 2017-05-17 08:01 | disposition home or self-care (01) ==
LOC: LAB.F 08:00
PROVIDERS: ATTEND Nurse Practitioner
DX: I48.0 Paroxysmal atrial fibrillation (principal)
CPT/HCPCS: 36415; 82565

== ENCOUNTER 2017-11-29 07:59 | Outpatient (CLI) | payer MEDICARE, OTHER ==
[2017-11-29 10:53] LABS: CHOL/HDL RATIO 3.5 (<4.4); CHOLESTEROL 225 mg/dL; CREATININE 0.7 mg/dL (0.4-1.0); GFR - MDRD 81 (>89); HDL CHOLESTEROL 65 mg/dL; LDL CHOLESTEROL,CALCULATED 140 mg/dL; LDL/HDL RATIO 2.2 (<4.4); VLDL CHOLESTEROL 20 mg/dL
[2017-11-29 10:58] LABS: BASOPHILS % (AUTO) 0.2 %; EOSINOPHILS % (AUTO) 2.7 %; HGB - HEMOGLOBIN 12.9 g/dL (12.0-16.0); LYMPHOCYTES % (AUTO) 10.2 %; MEAN CORPUSCULAR HEMOGLOBIN 30.7 pg (27.0-31.0); MEAN CORPUSCULAR HGB CONC 32.9 g/dL (32.0-36.0); MEAN CORPUSCULAR VOLUME 93.2 fL (81.0-99.0); MEAN PLATELET VOLUME 9.6 fL (7.9-10.8); MONOCYTES % (AUTO) 6.1 %; NEUTROPHILS % (AUTO) 80.8 %; PLT - PLATELET COUNT 423 10^3/uL (130-450); RED CELL DISTRIBUTION WIDTH 14.4 % (12.0-15.0); WHITE BLOOD COUNT 32.7 x10^3/uL (4.8-10.8)
[2017-11-29 11:11] LABS: ABNORMAL LYMPHS % (MANUAL) 0 %
[2017-11-29 11:24] LABS: BAND NEUTROPHILS % (MANUAL) 8 %; BASOPHILS # (MANUAL) 2.3 10^3/uL (0-0.1); BASOPHILS % (MANUAL) 7 %; EOSINOPHILS # (MANUAL) 1.3 10^3/uL (0-0.7); LYMPHOCYTES # (MANUAL) 5.9 10^3/uL (1.5-3.5); LYMPHOCYTES % (MANUAL) 18 %; METAMYELOCYTES % (MANUAL) 5 %; MONOCYTES # (MANUAL) 2.3 10^3/uL (0.0-1.0); MYELOCYTES % (MANUAL) 9 %; NEUTROPHILS # (MANUAL) 15.7 10^3/uL (1.5-6.6); NEUTROPHILS % (MANUAL) 40 %; PROMYELOCYTES % (MANUAL) 2 %
[2017-11-29 11:31] LABS: DIFFERENTIAL COMMENT MANUAL DIFFERENTIAL
== END 2017-11-29 08:00 | disposition home or self-care (01) ==
LOC: LAB.F 07:59
PROVIDERS: ATTEND Internal Medicine
DX: I48.91 Unspecified atrial fibrillation (principal); I48.0 Paroxysmal atrial fibrillation
CPT/HCPCS: 36415; 80061; 82565; 83721; 85025

== ENCOUNTER 2018-06-06 09:55 | Outpatient (CLI) | payer MEDICARE, OTHER ==
[2018-06-06] MEDS ORDERED: REGADENOSON 0.4 MG/5 ML SYRINGE IVP ONE ×2 (11:46→16:00)
--- NOTE | 2018-06-06 13:08 | CARDIAC PROCEDURE NOTE ---
DATE OF SERVICE: 06/06/2018 Physician: Ginger Bee MD INDICATION FOR TEST: Atrial fibrillation, dyspnea on exertion. After signing informed consent, the patient underwent a Lexiscan stress test with nuclear imaging at rest and stress. BASELINE EKG: Atrial fibrillation, heart rate 140, inferolateral scooping ST segments. The patient underwent a Lexiscan stress test. She developed mild shortness of breath, flushing, headache. The symptoms resolved spontaneously. Resting heart rate 140. Peak heart rate 171. Resting blood pressure 140/60, blood pressure with Lexiscan 101/60, recovery blood pressure 144/58. EKG AT [place]: Deeper scooping lateral ST segments. IMPRESSION 1. Atrial fibrillation with poor rate control (the patient had not taken Metoprolol today). 2. Indeterminate EKG changes due to baseline EKG abnormality as well as pharmaceutical stress test protocol. 3. Nuclear images reported separately. cc: Macario Alan M.D. TD: 06/06/2018 12:53 MTDMitch
--- NOTE | 2018-06-06 15:54 | Nuclear Medicine Report ---
Reason: LOVE, AFIB Procedure Date: 06/06/2018 Accession Number: [id number] / [id number] Procedure: NM - Myocardial Perfusion STR/RST CPT Code: FULL RESULT: EXAM: SINGLE-ISOTOPE PHARMACOLOGICAL STRESS TEST WITH REGADENOSON. SINGLE-ISOTOPE AND ONE-DAY REST/STRESS MYOCARDIAL PERFUSION SCANS WITH TOMOGRAPHIC IMAGING, QUANTITATIVE ANALYSIS, WALL MOTION ANALYSIS AND CALCULATION OF EJECTION FRACTION. EXAM DATE: 06/06/2018 01:15 PM. CLINICAL HISTORY: LOVE, AFIB. COMPARISON: None available. TECHNIQUE: After the intravenous administration of 8 mCi of Tc-99m sestamibi, a rest myocardial perfusion scan was done with tomography. Motion correction was applied when appropriate. After an appropriate delay, pharmacological stress was performed with the infusion of 0.4 mg regadenoson per protocol. According to protocol, 42.4 mCi of Tc-99m sestamibi was injected for stress myocardial perfusion scan. Motion correction was applied when appropriate. Gated tomographic images were obtained for wall motion analysis and computation of left ventricular ejection fraction. FINDINGS: Stress perfusion images demonstrate breast attenuation artifact in the distal anteroseptal wall. No convincing fixed or reversible perfusion defects. Computer analysis: Summed stress score 7 Summed rest score 0 Summed difference score 7 Wall motion analysis demonstrates no focal wall motion abnormality. The left ventricular end-diastolic volume is 34 cc. The left ventricular end-systolic volume is 8 cc. The left ventricular ejection fraction is calculated to be 75%. IMPRESSION: 1. No scintigraphic findings to indicate myocardial ischemia. Negative for infarct. 2. Left ventricular ejection fraction of 75%. 3. Normal segmental and global wall motion. 4. Normal left ventricular cavity size, no change with stress. 5. Based on computer analysis, mildly abnormal exam with moderate ischemia. Based on visual analysis, this is an overestimate. RADIA
== END 2018-06-06 09:56 | disposition home or self-care (01) ==
LOC: DI 09:55
PROVIDERS: ATTEND Internal Medicine Cardiovascular Disease
DX: I48.0 Paroxysmal atrial fibrillation (principal); R06.09 Other forms of dyspnea
CPT/HCPCS: 78452; 93017; A9500; J2785

== ENCOUNTER 2018-06-22 08:26 | Outpatient (CLI) | payer MEDICARE, OTHER ==
[2018-06-22 10:43] LABS: CREATININE 0.5 mg/dL (0.4-1.0)
== END 2018-06-22 08:27 | disposition home or self-care (01) ==
LOC: LAB.F 08:26
PROVIDERS: ATTEND Internal Medicine Cardiovascular Disease
DX: I48.0 Paroxysmal atrial fibrillation (principal)
CPT/HCPCS: 36415; 82565

== ENCOUNTER 2018-06-28 10:01 | Outpatient (CLI) | payer MEDICARE, OTHER | END 2018-06-28 10:02 | disposition home or self-care (01) | LOC: RT 10:01 | PROVIDERS: ATTEND Internal Medicine Cardiovascular Disease | DX: I48.91 Unspecified atrial fibrillation (principal) | CPT/HCPCS: 93005 ==

== ENCOUNTER 2018-06-29 08:17 | Outpatient (CLI) | payer MEDICARE, OTHER ==
[2018-06-29 10:33] LABS: BASOPHILS % (AUTO) 2.5 %; EOSINOPHILS % (AUTO) 1.6 %; HGB - HEMOGLOBIN 12.9 g/dL (12.0-16.0); LYMPHOCYTES % (AUTO) 3.5 %; MEAN CORPUSCULAR HEMOGLOBIN 30.4 pg (27.0-31.0); MEAN CORPUSCULAR HGB CONC 32.6 g/dL (32.0-36.0); MEAN CORPUSCULAR VOLUME 93.2 fL (81.0-99.0); MEAN PLATELET VOLUME 9.4 fL (7.9-10.8); MONOCYTES % (AUTO) 2.7 %; NEUTROPHILS % (AUTO) 89.7 %; PLT - PLATELET COUNT 701 10^3/uL (130-450); RED BLOOD COUNT 4.24 10^6/uL (4.20-5.40); RED CELL DISTRIBUTION WIDTH 14.9 % (12.0-15.0)
[2018-06-29 10:48] LABS: WHITE BLOOD COUNT 109.7 x10^3/uL (4.8-10.8)
[2018-06-29 10:50] LABS: ABNORMAL LYMPHS % (MANUAL) 0 %
[2018-06-29 11:10] LABS: BAND NEUTROPHILS % (MANUAL) 21 %; BASOPHILS # (MANUAL) 1.1 10^3/uL (0-0.1); BASOPHILS % (MANUAL) 1 %; EOSINOPHILS # (MANUAL) 2.2 10^3/uL (0-0.7); LYMPHOCYTES # (MANUAL) 8.8 10^3/uL (1.5-3.5); LYMPHOCYTES % (MANUAL) 8 %; METAMYELOCYTES % (MANUAL) 12 %; MONOCYTES # (MANUAL) 3.3 10^3/uL (0.0-1.0); MYELOCYTES % (MANUAL) 4 %; NEUTROPHILS # (MANUAL) 54.9 10^3/uL (1.5-6.6); NEUTROPHILS % (MANUAL) 29 %; PROMYELOCYTES % (MANUAL) 12 %
[2018-06-29 11:19] LABS: DIFFERENTIAL COMMENT MANUAL DIFFERENTIAL; PLATELET ESTIMATE, MANUAL INCREASED (>450,000) (NORMAL)
== END 2018-06-29 08:18 | disposition home or self-care (01) ==
LOC: LAB.F 08:17
PROVIDERS: ATTEND Internal Medicine Cardiovascular Disease
DX: I48.0 Paroxysmal atrial fibrillation (principal)
CPT/HCPCS: 36415; 85025

== ENCOUNTER 2018-10-22 13:59 | Outpatient (CLI) | payer MEDICARE, OTHER ==
[2018-10-22 17:20] LABS: EOSINOPHILS % (AUTO) 3.6 %; HGB - HEMOGLOBIN 13.5 g/dL (12.0-16.0); LYMPHOCYTES % (AUTO) 14.4 %; MEAN CORPUSCULAR HEMOGLOBIN 31.4 pg (27.0-31.0); MEAN CORPUSCULAR HGB CONC 33.3 g/dL (32.0-36.0); MEAN CORPUSCULAR VOLUME 94.1 fL (81.0-99.0); MEAN PLATELET VOLUME 8.5 fL (7.9-10.8); MONOCYTES % (AUTO) 15.5 %; NEUTROPHILS % (AUTO) 59.5 %; PLT - PLATELET COUNT 326 10^3/uL (130-450); RED BLOOD COUNT 4.29 10^6/uL (4.20-5.40); RED CELL DISTRIBUTION WIDTH 14.1 % (12.0-15.0); WHITE BLOOD COUNT 7.7 x10^3/uL (4.8-10.8)
[2018-10-22 17:24] LABS: ABNORMAL LYMPHS % (MANUAL) 0 %; BAND NEUTROPHILS % (MANUAL) 0 %
[2018-10-22 18:07] LABS: ALBUMIN 4.2 g/dL (3.2-5.5); ALBUMIN/GLOBULIN RATIO 1.4 (1.0-2.2); BILIRUBIN,TOTAL 0.4 mg/dL (0.2-1.0); CREATININE 0.8 mg/dL (0.4-1.0); MAGNESIUM 2.1 mg/dL (1.7-2.8); PHOSPHORUS 3.2 mg/dL (2.5-4.6); TOTAL PROTEIN 7.3 g/dL (6.7-8.2); URIC ACID 4.1 mg/dL (2.6-7.2)
[2018-10-22 18:08] LABS: BASOPHILS # (MANUAL) 0.2 10^3/uL (0-0.1); BASOPHILS % (MANUAL) 3 %; EOSINOPHILS # (MANUAL) 0.4 10^3/uL (0-0.7); LYMPHOCYTES # (MANUAL) 1.5 10^3/uL (1.5-3.5); LYMPHOCYTES % (MANUAL) 19 %; MONOCYTES # (MANUAL) 1.3 10^3/uL (0.0-1.0); NEUTROPHILS # (MANUAL) 4.3 10^3/uL (1.5-6.6); NEUTROPHILS % (MANUAL) 56 %
[2018-10-22 18:09] LABS: DIFFERENTIAL COMMENT MANUAL DIFFERENTIAL; PLATELET ESTIMATE, MANUAL NORMAL (130-450,000) (NORMAL); PLATELET MORPHOLOGY NORMAL APPEARANCE (NORMAL); RBC MORPHOLOGY (MULTIPLE) NORMAL APPEARANCE (NORMAL)
== END 2018-10-22 14:00 | disposition home or self-care (01) ==
LOC: LAB.F 13:59
DX: C92.10 Chronic myeloid leukemia, BCR/ABL-positive, not having achieved remission (principal)
CPT/HCPCS: 36415; 80053; 83615; 83735; 84100; 84550; 85025

== ENCOUNTER 2018-11-16 08:08 | Outpatient (CLI) | payer MEDICARE, OTHER ==
[2018-11-16 11:14] LABS: BASOPHILS # (AUTO) 0.4 10^3/uL (0.0-0.1); BASOPHILS % (AUTO) 10.3 %; EOSINOPHILS # (AUTO) 0.3 10^3/uL (0.0-0.7); EOSINOPHILS % (AUTO) 7.2 %; HGB - HEMOGLOBIN 13.4 g/dL (12.0-16.0); LYMPHOCYTES # (AUTO) 0.6 10^3/uL (1.5-3.5); LYMPHOCYTES % (AUTO) 16.2 %; MEAN CORPUSCULAR HEMOGLOBIN 30.5 pg (27.0-31.0); MEAN CORPUSCULAR HGB CONC 33.7 g/dL (32.0-36.0); MEAN CORPUSCULAR VOLUME 90.6 fL (81.0-99.0); MEAN PLATELET VOLUME 9.3 fL (7.9-10.8); MONOCYTES # (AUTO) 0.9 10^3/uL (0.0-1.0); MONOCYTES % (AUTO) 22.1 %; NEUTROPHILS # (AUTO) 1.8 10^3/uL (1.5-6.6); NEUTROPHILS % (AUTO) 44.2 %; PLT - PLATELET COUNT 221 10^3/uL (130-450); RED CELL DISTRIBUTION WIDTH 14.8 % (12.0-15.0)
[2018-11-16 11:18] LABS: ALBUMIN 3.7 g/dL (3.2-5.5); ALBUMIN/GLOBULIN RATIO 1.4 (1.0-2.2); BILIRUBIN,TOTAL 0.9 mg/dL (0.2-1.0); CREATININE 0.7 mg/dL (0.4-1.0); MAGNESIUM 1.9 mg/dL (1.7-2.8); TOTAL PROTEIN 6.3 g/dL (6.7-8.2); URIC ACID 4.1 mg/dL (2.6-7.2)
[2018-11-16 11:44] LABS: PLATELET ESTIMATE, MANUAL NORMAL (130-450,000) (NORMAL); PLATELET MORPHOLOGY RARE GIANT PLATELETS (NORMAL); RBC MORPHOLOGY (MULTIPLE) NORMAL APPEARANCE (NORMAL)
[2018-11-16 13:52] LABS: CALCIUM 8.8 mg/dL (8.5-10.3)
== END 2018-11-16 08:09 | disposition home or self-care (01) ==
LOC: LAB.F 08:08
PROVIDERS: ATTEND Internal Medicine Hematology & Oncology
DX: C92.10 Chronic myeloid leukemia, BCR/ABL-positive, not having achieved remission (principal)
CPT/HCPCS: 36415; 80053; 83615; 83735; 84100; 84550; 85025

== ENCOUNTER 2018-11-28 08:02 | Outpatient (CLI) | payer MEDICARE, OTHER ==
[2018-11-28 18:28] LABS: BASOPHILS # (AUTO) 0.4 10^3/uL (0.0-0.1); BASOPHILS % (AUTO) 8.6 %; EOSINOPHILS # (AUTO) 0.4 10^3/uL (0.0-0.7); EOSINOPHILS % (AUTO) 10.3 %; LYMPHOCYTES # (AUTO) 0.9 10^3/uL (1.5-3.5); LYMPHOCYTES % (AUTO) 20.8 %; MEAN CORPUSCULAR HEMOGLOBIN 30.2 pg (27.0-31.0); MEAN CORPUSCULAR HGB CONC 33.4 g/dL (32.0-36.0); MEAN CORPUSCULAR VOLUME 90.5 fL (81.0-99.0); MEAN PLATELET VOLUME 8.6 fL (7.9-10.8); MONOCYTES % (AUTO) 24.3 %; NEUTROPHILS # (AUTO) 1.6 10^3/uL (1.5-6.6); PLT - PLATELET COUNT 224 10^3/uL (130-450); RED BLOOD COUNT 4.31 10^6/uL (4.20-5.40); RED CELL DISTRIBUTION WIDTH 15.6 % (12.0-15.0); WHITE BLOOD COUNT 4.3 x10^3/uL (4.8-10.8)
[2018-11-28 18:41] LABS: ALBUMIN 3.8 g/dL (3.2-5.5); ALBUMIN/GLOBULIN RATIO 1.5 (1.0-2.2); BILIRUBIN,TOTAL 0.8 mg/dL (0.2-1.0); CALCIUM 8.8 mg/dL (8.5-10.3); CREATININE 0.7 mg/dL (0.4-1.0); MAGNESIUM 1.8 mg/dL (1.7-2.8); PHOSPHORUS 3.5 mg/dL (2.5-4.6); TOTAL PROTEIN 6.3 g/dL (6.7-8.2); URIC ACID 3.8 mg/dL (2.6-7.2)
== END 2018-11-28 08:03 | disposition home or self-care (01) ==
LOC: LAB.F 08:02
PROVIDERS: ATTEND Internal Medicine Hematology & Oncology
DX: C92.10 Chronic myeloid leukemia, BCR/ABL-positive, not having achieved remission (principal)
CPT/HCPCS: 36415; 80053; 83615; 83735; 84100; 84550; 85025

== ENCOUNTER 2018-12-05 08:15 | Outpatient (CLI) | payer MEDICARE, OTHER ==
[2018-12-05 18:16] LABS: ALBUMIN/GLOBULIN RATIO 1.4 (1.0-2.2); BILIRUBIN,TOTAL 0.8 mg/dL (0.2-1.0); CALCIUM 9.1 mg/dL (8.5-10.3); CREATININE 0.6 mg/dL (0.4-1.0); PHOSPHORUS 3.7 mg/dL (2.5-4.6); TOTAL PROTEIN 6.9 g/dL (6.7-8.2); URIC ACID 3.8 mg/dL (2.6-7.2)
[2018-12-05 19:57] LABS: BASOPHILS % (AUTO) 7.6 %; EOSINOPHILS % (AUTO) 5.6 %; HGB - HEMOGLOBIN 13.4 g/dL (12.0-16.0); MEAN CORPUSCULAR HEMOGLOBIN 30.2 pg (27.0-31.0); MEAN CORPUSCULAR HGB CONC 33.2 g/dL (32.0-36.0); MEAN CORPUSCULAR VOLUME 90.8 fL (81.0-99.0); MEAN PLATELET VOLUME 8.9 fL (7.9-10.8); MONOCYTES % (AUTO) 23.7 %; NEUTROPHILS % (AUTO) 46.1 %; PLT - PLATELET COUNT 232 10^3/uL (130-450); RED BLOOD COUNT 4.45 10^6/uL (4.20-5.40); RED CELL DISTRIBUTION WIDTH 15.8 % (12.0-15.0); WHITE BLOOD COUNT 6.8 x10^3/uL (4.8-10.8)
[2018-12-05 20:30] LABS: ABNORMAL LYMPHS % (MANUAL) 0 %
[2018-12-05 22:22] LABS: BAND NEUTROPHILS % (MANUAL) 1 %; BASOPHILS # (MANUAL) 0.5 10^3/uL (0-0.1); BASOPHILS % (MANUAL) 8 %; EOSINOPHILS # (MANUAL) 0.5 10^3/uL (0-0.7); LYMPHOCYTES % (MANUAL) 29 %; MYELOCYTES % (MANUAL) 1 %; NEUTROPHILS # (MANUAL) 2.7 10^3/uL (1.5-6.6); NEUTROPHILS % (MANUAL) 39 %
[2018-12-05 22:23] LABS: PLATELET ESTIMATE, MANUAL NORMAL (130-450,000) (NORMAL); PLATELET MORPHOLOGY 1+ GIANT PLATELETS (NORMAL); RBC MORPHOLOGY (MULTIPLE) NORMAL APPEARANCE (NORMAL)
[2018-12-05 22:24] LABS: DIFFERENTIAL COMMENT MANUAL DIFFERENTIAL
== END 2018-12-05 08:16 | disposition home or self-care (01) ==
LOC: LAB.F 08:15
PROVIDERS: ATTEND Internal Medicine Hematology & Oncology
DX: C92.10 Chronic myeloid leukemia, BCR/ABL-positive, not having achieved remission (principal)
CPT/HCPCS: 36415; 80053; 83615; 83735; 84100; 84550; 85025

== ENCOUNTER 2018-12-12 09:17 | Outpatient (CLI) | payer MEDICARE, OTHER ==
[2018-12-12 18:19] LABS: ALBUMIN 3.8 g/dL (3.2-5.5); ALBUMIN/GLOBULIN RATIO 1.5 (1.0-2.2); BILIRUBIN,TOTAL 0.8 mg/dL (0.2-1.0); CALCIUM 8.9 mg/dL (8.5-10.3); CREATININE 0.6 mg/dL (0.4-1.0); MAGNESIUM 1.9 mg/dL (1.7-2.8); PHOSPHORUS 3.4 mg/dL (2.5-4.6); TOTAL PROTEIN 6.4 g/dL (6.7-8.2); URIC ACID 3.8 mg/dL (2.6-7.2)
[2018-12-12 18:34] LABS: BASOPHILS % (AUTO) 7.3 %; EOSINOPHILS % (AUTO) 4.5 %; HGB - HEMOGLOBIN 13.6 g/dL (12.0-16.0); LYMPHOCYTES % (AUTO) 11.8 %; MEAN CORPUSCULAR HEMOGLOBIN 29.8 pg (27.0-31.0); MEAN CORPUSCULAR HGB CONC 32.9 g/dL (32.0-36.0); MEAN CORPUSCULAR VOLUME 90.5 fL (81.0-99.0); MEAN PLATELET VOLUME 8.7 fL (7.9-10.8); MONOCYTES % (AUTO) 16.7 %; NEUTROPHILS % (AUTO) 59.7 %; PLT - PLATELET COUNT 260 10^3/uL (130-450); RED BLOOD COUNT 4.55 10^6/uL (4.20-5.40); RED CELL DISTRIBUTION WIDTH 15.8 % (12.0-15.0); WHITE BLOOD COUNT 9.4 x10^3/uL (4.8-10.8)
[2018-12-12 19:01] LABS: ABNORMAL LYMPHS % (MANUAL) 0 %
[2018-12-12 20:51] LABS: BAND NEUTROPHILS % (MANUAL) 11 %; EOSINOPHILS # (MANUAL) 0.5 10^3/uL (0-0.7); LYMPHOCYTES # (MANUAL) 1.5 10^3/uL (1.5-3.5); LYMPHOCYTES % (MANUAL) 12 %; MONOCYTES # (MANUAL) 1.2 10^3/uL (0.0-1.0); NEUTROPHILS # (MANUAL) 6.2 10^3/uL (1.5-6.6); NEUTROPHILS % (MANUAL) 55 %
[2018-12-12 20:52] LABS: DIFFERENTIAL COMMENT MANUAL DIFFERENTIAL; PLATELET ESTIMATE, MANUAL NORMAL (130-450,000) (NORMAL); PLATELET MORPHOLOGY 1+ LARGE PLATELETS (NORMAL); RBC MORPHOLOGY (MULTIPLE) NORMAL APPEARANCE (NORMAL)
== END 2018-12-12 09:18 | disposition home or self-care (01) ==
LOC: LAB.F 09:17
PROVIDERS: ATTEND Internal Medicine Hematology & Oncology
DX: C92.10 Chronic myeloid leukemia, BCR/ABL-positive, not having achieved remission (principal)
CPT/HCPCS: 36415; 80053; 81599; 83615; 83735; 84100; 84550; 85025

== ENCOUNTER 2019-01-14 08:00 | Outpatient (CLI) | payer MEDICARE, OTHER ==
[2019-01-14 17:46] LABS: BASOPHILS % (AUTO) 8.1 %; EOSINOPHILS % (AUTO) 5.8 %; HGB - HEMOGLOBIN 12.2 g/dL (12.0-16.0); LYMPHOCYTES % (AUTO) 19.6 %; MEAN CORPUSCULAR HEMOGLOBIN 29.9 pg (27.0-31.0); MEAN CORPUSCULAR HGB CONC 33.3 g/dL (32.0-36.0); MEAN CORPUSCULAR VOLUME 89.8 fL (81.0-99.0); MEAN PLATELET VOLUME 9.1 fL (7.9-10.8); MONOCYTES % (AUTO) 19.6 %; NEUTROPHILS % (AUTO) 46.9 %; PLT - PLATELET COUNT 351 10^3/uL (130-450); RED BLOOD COUNT 4.09 10^6/uL (4.20-5.40); WHITE BLOOD COUNT 7.7 x10^3/uL (4.8-10.8)
[2019-01-14 17:49] LABS: ABNORMAL LYMPHS % (MANUAL) 0 %
[2019-01-14 18:20] LABS: ALBUMIN 3.7 g/dL (3.2-5.5); ALBUMIN/GLOBULIN RATIO 1.4 (1.0-2.2); BILIRUBIN,TOTAL 0.7 mg/dL (0.2-1.0); CALCIUM 8.9 mg/dL (8.5-10.3); CREATININE 0.6 mg/dL (0.4-1.0); PHOSPHORUS 3.8 mg/dL (2.5-4.6); TOTAL PROTEIN 6.4 g/dL (6.7-8.2); URIC ACID 4.1 mg/dL (2.6-7.2)
[2019-01-14 21:32] LABS: BAND NEUTROPHILS % (MANUAL) 10 %; DIFFERENTIAL COMMENT MANUAL DIFFERENTIAL; EOSINOPHILS # (MANUAL) 0.7 10^3/uL (0-0.7); LYMPHOCYTES # (MANUAL) 1.5 10^3/uL (1.5-3.5); LYMPHOCYTES % (MANUAL) 17 %; MONOCYTES # (MANUAL) 0.9 10^3/uL (0.0-1.0); NEUTROPHILS # (MANUAL) 4.6 10^3/uL (1.5-6.6); NEUTROPHILS % (MANUAL) 50 %; PLATELET ESTIMATE, MANUAL NORMAL (130-450,000) (NORMAL); PLATELET MORPHOLOGY 2+ GIANT PLATELETS (NORMAL)
== END 2019-01-14 23:59 | disposition home or self-care (01) ==
LOC: LAB.F 08:00
PROVIDERS: ATTEND Internal Medicine Hematology & Oncology
DX: Z51.81 Encounter for therapeutic drug level monitoring (principal); C92.10 Chronic myeloid leukemia, BCR/ABL-positive, not having achieved remission; Z79.899 Other long term (current) drug therapy
CPT/HCPCS: 36415; 80053; 83615; 83735; 84100; 84550; 85025

== ENCOUNTER 2019-01-22 09:11 | Outpatient (CLI) | payer MEDICARE, OTHER ==
[2019-01-22 17:39] LABS: BASOPHILS # (AUTO) 0.4 10^3/uL (0.0-0.1); BASOPHILS % (AUTO) 9.8 %; EOSINOPHILS # (AUTO) 0.4 10^3/uL (0.0-0.7); EOSINOPHILS % (AUTO) 7.9 %; HGB - HEMOGLOBIN 12.9 g/dL (12.0-16.0); LYMPHOCYTES # (AUTO) 0.9 10^3/uL (1.5-3.5); LYMPHOCYTES % (AUTO) 19.7 %; MEAN CORPUSCULAR HEMOGLOBIN 29.8 pg (27.0-31.0); MEAN CORPUSCULAR HGB CONC 32.7 g/dL (32.0-36.0); MEAN CORPUSCULAR VOLUME 91.3 fL (81.0-99.0); MEAN PLATELET VOLUME 9.3 fL (7.9-10.8); MONOCYTES % (AUTO) 21.6 %; NEUTROPHILS # (AUTO) 1.8 10^3/uL (1.5-6.6); PLT - PLATELET COUNT 221 10^3/uL (130-450); RED BLOOD COUNT 4.33 10^6/uL (4.20-5.40); RED CELL DISTRIBUTION WIDTH 15.4 % (12.0-15.0); WHITE BLOOD COUNT 4.5 x10^3/uL (4.8-10.8)
[2019-01-22 17:55] LABS: ALBUMIN 3.7 g/dL (3.2-5.5); ALBUMIN/GLOBULIN RATIO 1.3 (1.0-2.2); BILIRUBIN,TOTAL 0.8 mg/dL (0.2-1.0); CREATININE 0.7 mg/dL (0.4-1.0); MAGNESIUM 2.2 mg/dL (1.7-2.8); PHOSPHORUS 3.5 mg/dL (2.5-4.6); TOTAL PROTEIN 6.6 g/dL (6.7-8.2); URIC ACID 3.9 mg/dL (2.6-7.2)
[2019-01-22 19:25] LABS: RBC MORPHOLOGY (MULTIPLE) NORMAL APPEARANCE (NORMAL)
[2019-01-22 19:26] LABS: PLATELET ESTIMATE, MANUAL NORMAL (130-450,000) (NORMAL)
== END 2019-01-22 09:12 | disposition home or self-care (01) ==
LOC: LAB.F 09:11
PROVIDERS: ATTEND Internal Medicine Hematology & Oncology
DX: C92.10 Chronic myeloid leukemia, BCR/ABL-positive, not having achieved remission (principal); Z51.11 Encounter for antineoplastic chemotherapy
CPT/HCPCS: 36415; 80053; 83615; 83735; 84100; 84550; 85025

== ENCOUNTER 2019-01-29 14:26 | Outpatient (CLI) | payer MEDICARE, OTHER ==
[2019-01-29 18:06] LABS: BASOPHILS # (AUTO) 0.4 10^3/uL (0.0-0.1); BASOPHILS % (AUTO) 7.6 %; EOSINOPHILS # (AUTO) 0.2 10^3/uL (0.0-0.7); EOSINOPHILS % (AUTO) 4.2 %; HGB - HEMOGLOBIN 13.1 g/dL (12.0-16.0); LYMPHOCYTES # (AUTO) 1.3 10^3/uL (1.5-3.5); LYMPHOCYTES % (AUTO) 22.1 %; MEAN CORPUSCULAR HEMOGLOBIN 30.4 pg (27.0-31.0); MEAN CORPUSCULAR HGB CONC 33.5 g/dL (32.0-36.0); MEAN CORPUSCULAR VOLUME 90.8 fL (81.0-99.0); MEAN PLATELET VOLUME 9.4 fL (7.9-10.8); MONOCYTES # (AUTO) 1.1 10^3/uL (0.0-1.0); MONOCYTES % (AUTO) 18.8 %; NEUTROPHILS # (AUTO) 2.7 10^3/uL (1.5-6.6); NEUTROPHILS % (AUTO) 47.3 %; PLT - PLATELET COUNT 203 10^3/uL (130-450); RED BLOOD COUNT 4.31 10^6/uL (4.20-5.40); WHITE BLOOD COUNT 5.7 x10^3/uL (4.8-10.8)
[2019-01-29 18:12] LABS: ALBUMIN 4.2 g/dL (3.2-5.5); ALBUMIN/GLOBULIN RATIO 1.6 (1.0-2.2); BILIRUBIN,TOTAL 1.2 mg/dL (0.2-1.0); CALCIUM 9.1 mg/dL (8.5-10.3); CREATININE 0.6 mg/dL (0.4-1.0); MAGNESIUM 2.1 mg/dL (1.7-2.8); PHOSPHORUS 3.5 mg/dL (2.5-4.6); TOTAL PROTEIN 6.8 g/dL (6.7-8.2); URIC ACID 3.5 mg/dL (2.6-7.2)
[2019-01-29 18:31] LABS: PLATELET ESTIMATE, MANUAL NORMAL (130-450,000) (NORMAL); PLATELET MORPHOLOGY RARE GIANT PLATELETS (NORMAL); RBC MORPHOLOGY (MULTIPLE) NORMAL APPEARANCE (NORMAL)
== END 2019-01-29 14:27 | disposition home or self-care (01) ==
LOC: LAB.F 14:26
PROVIDERS: ATTEND Internal Medicine Hematology & Oncology
DX: C92.10 Chronic myeloid leukemia, BCR/ABL-positive, not having achieved remission (principal)
CPT/HCPCS: 36415; 80053; 83615; 83735; 84100; 84550; 85025

== ENCOUNTER 2019-02-19 08:15 | Outpatient (CLI) | payer MEDICARE, OTHER ==
[2019-02-19 10:46] LABS: BASOPHILS % (AUTO) 1.3 %; EOSINOPHILS % (AUTO) 0.8 %; HGB - HEMOGLOBIN 12.8 g/dL (12.0-16.0); LYMPHOCYTES % (AUTO) 7.8 %; MEAN CORPUSCULAR HEMOGLOBIN 30.3 pg (27.0-31.0); MEAN CORPUSCULAR HGB CONC 33.2 g/dL (32.0-36.0); MEAN CORPUSCULAR VOLUME 91.3 fL (81.0-99.0); MEAN PLATELET VOLUME 10.1 fL (7.9-10.8); MONOCYTES % (AUTO) 21.6 %; NEUTROPHILS % (AUTO) 67.5 %; PLT - PLATELET COUNT 175 10^3/uL (130-450); RED BLOOD COUNT 4.23 10^6/uL (4.20-5.40); RED CELL DISTRIBUTION WIDTH 13.7 % (12.0-15.0); WHITE BLOOD COUNT 9.8 x10^3/uL (4.8-10.8)
[2019-02-19 10:49] LABS: ABNORMAL LYMPHS % (MANUAL) 0 %; BAND NEUTROPHILS % (MANUAL) 0 %
[2019-02-19 10:58] LABS: ALBUMIN 3.7 g/dL (3.2-5.5); ALBUMIN/GLOBULIN RATIO 1.1 (1.0-2.2); BILIRUBIN,TOTAL 1.4 mg/dL (0.2-1.0); CALCIUM 8.9 mg/dL (8.5-10.3); CREATININE 0.6 mg/dL (0.4-1.0); PHOSPHORUS 2.4 mg/dL (2.5-4.6); TOTAL PROTEIN 7.1 g/dL (6.7-8.2); URIC ACID 3.2 mg/dL (2.6-7.2)
[2019-02-19 11:46] LABS: EOSINOPHILS # (MANUAL) 0.1 10^3/uL (0-0.7); LYMPHOCYTES % (MANUAL) 10 %; METAMYELOCYTES % (MANUAL) 1 %; MONOCYTES # (MANUAL) 1.4 10^3/uL (0.0-1.0); NEUTROPHILS # (MANUAL) 7.3 10^3/uL (1.5-6.6); NEUTROPHILS % (MANUAL) 74 %
[2019-02-19 11:47] LABS: PLATELET ESTIMATE, MANUAL NORMAL (130-450,000) (NORMAL); PLATELET MORPHOLOGY NORMAL APPEARANCE (NORMAL); RBC MORPHOLOGY (MULTIPLE) NORMAL APPEARANCE (NORMAL)
[2019-02-19 11:48] LABS: DIFFERENTIAL COMMENT MANUAL DIFFERENTIAL
== END 2019-02-19 08:16 | disposition home or self-care (01) ==
LOC: LAB.F 08:15
PROVIDERS: ATTEND Internal Medicine Hematology & Oncology
DX: C92.10 Chronic myeloid leukemia, BCR/ABL-positive, not having achieved remission (principal); Z51.11 Encounter for antineoplastic chemotherapy
CPT/HCPCS: 36415; 80053; 83615; 83735; 84100; 84550; 85025

== ENCOUNTER 2019-02-19 12:31 | Outpatient (CLI) | payer MEDICARE, OTHER ==
--- NOTE | 2019-02-19 13:47 | XRAY Report ---
Reason: COUGH Procedure Date: 02/19/2019 Accession Number: [id number] / [id number] Procedure: XR - Chest 2 View X-Ray CPT Code: 92452 FULL RESULT: EXAM: CHEST RADIOGRAPHY EXAM DATE: 02/19/2019 12:45 PM. CLINICAL HISTORY: Cough. COMPARISON: CHEST 2 VIEW PA/LAT 04/24/2017 10:36 AM. CHEST W/O 04/25/2017 2:45 PM. TECHNIQUE: 2 views. FINDINGS: Lungs/Pleura: Compared to 2017, there has been interval coarsening pulmonary markings and there are no infiltrates in the right middle lobe and laterally in the left midlung. No pleural effusion or pneumothorax is detected. Mediastinum: The cardiomediastinal silhouette is stable with a tortuous aorta and demonstrates no cardiac enlargement. Other: There is a suggestion of free air underneath the left hemidiaphragm which is potentially artifactual due to multiple purely gas-filled bowel loops adjacent to each other trapped under the left hemidiaphragm. IMPRESSION: Interval coarsening of lung markings and infiltrates in the bilateral mid lungs are compatible with the provided history of Mycobacterium avium complex infection, but nonspecific for this etiology. Appearance of bowel loops underneath the left hemidiaphragm may be the cause of apparent free air underneath the left hemidiaphragm without clinical history or continuous diaphragm sign/air underneath the right diaphragm. [facility] The call report notification system was initiated by Dr. Chauncey Lundy at 01:10 PM on 02/19/2019. The above call report findings were discussed with Courtney Cordova by Dr. Chauncey Lundy at 01:42 PM on 02/19/2019.
== END 2019-02-19 12:32 | disposition home or self-care (01) ==
LOC: DI 12:31
PROVIDERS: ATTEND Internal Medicine
DX: R91.8 Other nonspecific abnormal finding of lung field (principal); C92.10 Chronic myeloid leukemia, BCR/ABL-positive, not having achieved remission; Z51.11 Encounter for antineoplastic chemotherapy
CPT/HCPCS: 36415; 71046; 80053; 83615; 83735; 84100; 84550; 85025

== ENCOUNTER 2019-02-27 12:50 | Outpatient (CLI) | payer MEDICARE, OTHER ==
[2019-02-27 17:25] LABS: ALBUMIN 3.7 g/dL (3.2-5.5); ALBUMIN/GLOBULIN RATIO 0.9 (1.0-2.2); BILIRUBIN,TOTAL 0.7 mg/dL (0.2-1.0); CALCIUM 9.1 mg/dL (8.5-10.3); CREATININE 0.7 mg/dL (0.4-1.0); TOTAL PROTEIN 7.6 g/dL (6.7-8.2)
[2019-02-27 17:30] LABS: BASOPHILS # (AUTO) 0.2 10^3/uL (0.0-0.1); BASOPHILS % (AUTO) 2.5 %; EOSINOPHILS # (AUTO) 0.2 10^3/uL (0.0-0.7); EOSINOPHILS % (AUTO) 1.8 %; HGB - HEMOGLOBIN 12.9 g/dL (12.0-16.0); LYMPHOCYTES # (AUTO) 1.4 10^3/uL (1.5-3.5); LYMPHOCYTES % (AUTO) 14.9 %; MEAN CORPUSCULAR HEMOGLOBIN 29.5 pg (27.0-31.0); MEAN CORPUSCULAR VOLUME 92.2 fL (81.0-99.0); MEAN PLATELET VOLUME 9.4 fL (7.9-10.8); MONOCYTES # (AUTO) 1.7 10^3/uL (0.0-1.0); MONOCYTES % (AUTO) 17.9 %; NEUTROPHILS # (AUTO) 5.7 10^3/uL (1.5-6.6); NEUTROPHILS % (AUTO) 61.2 %; PLT - PLATELET COUNT 269 10^3/uL (130-450); RED BLOOD COUNT 4.37 10^6/uL (4.20-5.40); RED CELL DISTRIBUTION WIDTH 13.2 % (12.0-15.0); WHITE BLOOD COUNT 9.3 x10^3/uL (4.8-10.8)
[2019-02-27 18:45] LABS: PLATELET ESTIMATE, MANUAL NORMAL (130-450,000) (NORMAL); PLATELET MORPHOLOGY NORMAL APPEARANCE (NORMAL); RBC MORPHOLOGY (MULTIPLE) NORMAL APPEARANCE (NORMAL)
[2019-02-27 18:46] LABS: DIFFERENTIAL COMMENT MANUAL=AUTO DIFF
== END 2019-02-27 23:59 | disposition home or self-care (01) ==
LOC: LAB.R 12:50
PROVIDERS: ATTEND Internal Medicine
DX: E78.1 Pure hyperglyceridemia (principal); C92.10 Chronic myeloid leukemia, BCR/ABL-positive, not having achieved remission
CPT/HCPCS: 80053; 85025

== ENCOUNTER 2019-03-06 10:45 | Outpatient (CLI) | payer MEDICARE, OTHER ==
[2019-03-06 18:22] LABS: ALBUMIN 3.5 g/dL (3.2-5.5); ALBUMIN/GLOBULIN RATIO 0.9 (1.0-2.2); BILIRUBIN,TOTAL 0.8 mg/dL (0.2-1.0); CALCIUM 9.2 mg/dL (8.5-10.3); CREATININE 0.6 mg/dL (0.4-1.0); TOTAL PROTEIN 7.2 g/dL (6.7-8.2)
== END 2019-03-06 23:59 | disposition home or self-care (01) ==
LOC: LAB.S 10:45
PROVIDERS: ATTEND Internal Medicine Hematology & Oncology
DX: C92.10 Chronic myeloid leukemia, BCR/ABL-positive, not having achieved remission (principal)
CPT/HCPCS: 80053

== ENCOUNTER 2019-04-02 08:30 | Outpatient (CLI) | payer MEDICARE, OTHER ==
[2019-04-02 17:23] LABS: BASOPHILS % (AUTO) 3.4 %; EOSINOPHILS % (AUTO) 1.1 %; HGB - HEMOGLOBIN 12.9 g/dL (12.0-16.0); LYMPHOCYTES % (AUTO) 10.1 %; MEAN CORPUSCULAR HEMOGLOBIN 28.4 pg (27.0-31.0); MEAN CORPUSCULAR HGB CONC 30.9 g/dL (32.0-36.0); MEAN CORPUSCULAR VOLUME 91.6 fL (81.0-99.0); MEAN PLATELET VOLUME 9.1 fL (7.9-10.8); MONOCYTES % (AUTO) 16.8 %; NEUTROPHILS % (AUTO) 61.7 %; PLT - PLATELET COUNT 438 10^3/uL (130-450); RED BLOOD COUNT 4.55 10^6/uL (4.20-5.40); RED CELL DISTRIBUTION WIDTH 13.2 % (12.0-15.0); WHITE BLOOD COUNT 9.6 x10^3/uL (4.8-10.8)
[2019-04-02 17:32] LABS: ABNORMAL LYMPHS % (MANUAL) 0 %; ALBUMIN 3.3 g/dL (3.2-5.5); BILIRUBIN,TOTAL 0.8 mg/dL (0.2-1.0); CREATININE 0.6 mg/dL (0.4-1.0); PHOSPHORUS 3.3 mg/dL (2.5-4.6); TOTAL PROTEIN 6.7 g/dL (6.7-8.2); URIC ACID 3.3 mg/dL (2.6-7.2)
[2019-04-02 17:52] LABS: BAND NEUTROPHILS % (MANUAL) 2 %; BASOPHILS # (MANUAL) 0.3 10^3/uL (0-0.1); BASOPHILS % (MANUAL) 3 %; EOSINOPHILS # (MANUAL) 0.1 10^3/uL (0-0.7); LYMPHOCYTES # (MANUAL) 1.8 10^3/uL (1.5-3.5); LYMPHOCYTES % (MANUAL) 19 %; MONOCYTES # (MANUAL) 1.7 10^3/uL (0.0-1.0)
[2019-04-02 17:53] LABS: PLATELET MORPHOLOGY NORMAL APPEARANCE (NORMAL); RBC MORPHOLOGY (MULTIPLE) NORMAL APPEARANCE (NORMAL)
[2019-04-02 17:54] LABS: DIFFERENTIAL COMMENT MANUAL DIFFERENTIAL; PLATELET ESTIMATE, MANUAL NORMAL (130-450,000) (NORMAL)
== END 2019-04-02 08:31 | disposition home or self-care (01) ==
LOC: LAB.S 08:30
PROVIDERS: ATTEND Internal Medicine Hematology & Oncology
DX: C92.10 Chronic myeloid leukemia, BCR/ABL-positive, not having achieved remission (principal)
CPT/HCPCS: 36415; 80053; 83615; 83735; 84100; 84550; 85025

== ENCOUNTER 2019-04-18 08:41 | Outpatient (CLI) | payer MEDICARE, OTHER ==
[2019-04-18 17:37] LABS: ALBUMIN 3.5 g/dL (3.2-5.5); ALBUMIN/GLOBULIN RATIO 0.9 (1.0-2.2); BILIRUBIN,TOTAL 0.7 mg/dL (0.2-1.0); CALCIUM 9.4 mg/dL (8.5-10.3); CREATININE 0.7 mg/dL (0.4-1.0); PHOSPHORUS 3.2 mg/dL (2.5-4.6); TOTAL PROTEIN 7.2 g/dL (6.7-8.2); URIC ACID 3.8 mg/dL (2.6-7.2)
[2019-04-18 17:40] LABS: BASOPHILS % (AUTO) 6.1 %; EOSINOPHILS % (AUTO) 2.1 %; HGB - HEMOGLOBIN 12.7 g/dL (12.0-16.0); LYMPHOCYTES % (AUTO) 15.4 %; MEAN CORPUSCULAR HEMOGLOBIN 28.1 pg (27.0-31.0); MEAN CORPUSCULAR HGB CONC 31.4 g/dL (32.0-36.0); MEAN CORPUSCULAR VOLUME 89.6 fL (81.0-99.0); MEAN PLATELET VOLUME 9.6 fL (7.9-10.8); MONOCYTES % (AUTO) 15.5 %; NEUTROPHILS % (AUTO) 54.5 %; PLT - PLATELET COUNT 521 10^3/uL (130-450); RED BLOOD COUNT 4.52 10^6/uL (4.20-5.40); RED CELL DISTRIBUTION WIDTH 13.6 % (12.0-15.0); WHITE BLOOD COUNT 9.7 x10^3/uL (4.8-10.8)
[2019-04-18 17:55] LABS: ABNORMAL LYMPHS % (MANUAL) 0 %
[2019-04-18 21:38] LABS: BAND NEUTROPHILS % (MANUAL) 3 %; BASOPHILS # (MANUAL) 0.6 10^3/uL (0-0.1); BASOPHILS % (MANUAL) 6 %; EOSINOPHILS # (MANUAL) 0.6 10^3/uL (0-0.7); LYMPHOCYTES # (MANUAL) 1.5 10^3/uL (1.5-3.5); LYMPHOCYTES % (MANUAL) 15 %; METAMYELOCYTES % (MANUAL) 2 %; MONOCYTES # (MANUAL) 0.9 10^3/uL (0.0-1.0); MYELOCYTES % (MANUAL) 3 %; PROMYELOCYTES % (MANUAL) 1 %
[2019-04-18 21:39] LABS: DIFFERENTIAL COMMENT MANUAL DIFFERENTIAL; PLATELET ESTIMATE, MANUAL INCREASED (>450,000) (NORMAL); PLATELET MORPHOLOGY NORMAL APPEARANCE (NORMAL); RBC MORPHOLOGY (MULTIPLE) NORMAL APPEARANCE (NORMAL)
== END 2019-04-18 08:42 | disposition home or self-care (01) ==
LOC: LAB.S 08:41
PROVIDERS: ATTEND Registered Nurse
DX: C92.10 Chronic myeloid leukemia, BCR/ABL-positive, not having achieved remission (principal); I48.91 Unspecified atrial fibrillation; Z79.01 Long term (current) use of anticoagulants
CPT/HCPCS: 36415; 80053; 83615; 83735; 84100; 84550; 85025

== ENCOUNTER 2019-05-10 08:10 | Outpatient (CLI) | payer MEDICARE, OTHER ==
[2019-05-10 10:40] LABS: CREATININE 0.5 mg/dL (0.4-1.0)
== END 2019-05-10 08:11 | disposition home or self-care (01) ==
LOC: LAB.S 08:10
PROVIDERS: ATTEND Internal Medicine
DX: I48.0 Paroxysmal atrial fibrillation (principal)
CPT/HCPCS: 36415; 82565

== ENCOUNTER 2019-05-23 08:43 | Outpatient (CLI) | payer MEDICARE, OTHER ==
[2019-05-23 17:18] LABS: BASOPHILS # (AUTO) 0.3 10^3/uL (0.0-0.1); BASOPHILS % (AUTO) 4.5 %; EOSINOPHILS # (AUTO) 0.2 10^3/uL (0.0-0.7); EOSINOPHILS % (AUTO) 3.1 %; HGB - HEMOGLOBIN 13.2 g/dL (12.0-16.0); LYMPHOCYTES # (AUTO) 1.1 10^3/uL (1.5-3.5); LYMPHOCYTES % (AUTO) 17.6 %; MEAN CORPUSCULAR HEMOGLOBIN 29.3 pg (27.0-31.0); MEAN CORPUSCULAR HGB CONC 32.1 g/dL (32.0-36.0); MEAN CORPUSCULAR VOLUME 91.3 fL (81.0-99.0); MONOCYTES # (AUTO) 1.3 10^3/uL (0.0-1.0); MONOCYTES % (AUTO) 20.3 %; NEUTROPHILS # (AUTO) 3.3 10^3/uL (1.5-6.6); NEUTROPHILS % (AUTO) 53.2 %; PLT - PLATELET COUNT 268 10^3/uL (130-450); RED CELL DISTRIBUTION WIDTH 16.2 % (12.0-15.0); WHITE BLOOD COUNT 6.2 x10^3/uL (4.8-10.8)
[2019-05-23 17:38] LABS: ALBUMIN 3.9 g/dL (3.2-5.5); ALBUMIN/GLOBULIN RATIO 1.1 (1.0-2.2); BILIRUBIN,TOTAL 0.6 mg/dL (0.2-1.0); CALCIUM 9.3 mg/dL (8.5-10.3); CREATININE 0.5 mg/dL (0.4-1.0); TOTAL PROTEIN 7.6 g/dL (6.7-8.2)
== END 2019-05-23 08:44 | disposition home or self-care (01) ==
LOC: LAB.S 08:43
PROVIDERS: ATTEND Internal Medicine Hematology & Oncology
DX: C92.10 Chronic myeloid leukemia, BCR/ABL-positive, not having achieved remission (principal)
CPT/HCPCS: 36415; 80053; 85025

== ENCOUNTER 2019-08-06 08:49 | Outpatient (CLI) | payer MEDICARE, OTHER ==
[2019-08-06 17:23] LABS: BASOPHILS # (AUTO) 0.2 10^3/uL (0.0-0.1); BASOPHILS % (AUTO) 2.9 %; EOSINOPHILS # (AUTO) 0.1 10^3/uL (0.0-0.7); EOSINOPHILS % (AUTO) 2.3 %; HGB - HEMOGLOBIN 12.5 g/dL (12.0-16.0); LYMPHOCYTES # (AUTO) 0.9 10^3/uL (1.5-3.5); LYMPHOCYTES % (AUTO) 16.7 %; MEAN CORPUSCULAR HEMOGLOBIN 30.3 pg (27.0-31.0); MEAN CORPUSCULAR HGB CONC 32.7 g/dL (32.0-36.0); MEAN CORPUSCULAR VOLUME 92.5 fL (81.0-99.0); MEAN PLATELET VOLUME 9.6 fL (7.9-10.8); MONOCYTES # (AUTO) 1.1 10^3/uL (0.0-1.0); MONOCYTES % (AUTO) 18.9 %; NEUTROPHILS # (AUTO) 3.3 10^3/uL (1.5-6.6); NEUTROPHILS % (AUTO) 58.5 %; PLT - PLATELET COUNT 237 10^3/uL (130-450); RED BLOOD COUNT 4.13 10^6/uL (4.20-5.40); RED CELL DISTRIBUTION WIDTH 14.2 % (12.0-15.0); WHITE BLOOD COUNT 5.6 x10^3/uL (4.8-10.8)
[2019-08-06 17:43] LABS: ALBUMIN 3.9 g/dL (3.2-5.5); ALBUMIN/GLOBULIN RATIO 1.1 (1.0-2.2); BILIRUBIN,TOTAL 0.6 mg/dL (0.2-1.0); CALCIUM 8.9 mg/dL (8.5-10.3); CREATININE 0.6 mg/dL (0.4-1.0); TOTAL PROTEIN 7.3 g/dL (6.7-8.2)
== END 2019-08-06 08:50 | disposition home or self-care (01) ==
LOC: LAB.S 08:49
PROVIDERS: ATTEND Internal Medicine
DX: C92.10 Chronic myeloid leukemia, BCR/ABL-positive, not having achieved remission (principal)
CPT/HCPCS: 36415; 80053; 85025

== ENCOUNTER 2019-08-19 13:13 | Outpatient (CLI) | payer MEDICARE, OTHER | END 2019-08-19 13:14 | disposition home or self-care (01) | LOC: RT 13:13 | PROVIDERS: ATTEND Internal Medicine Cardiovascular Disease | DX: I48.0 Paroxysmal atrial fibrillation (principal) | CPT/HCPCS: 93005 ==

== ENCOUNTER 2019-08-30 09:22 | Outpatient (CLI) | payer MEDICARE, OTHER ==
[2019-08-30 17:28] LABS: BASOPHILS # (AUTO) 0.2 10^3/uL (0.0-0.1); EOSINOPHILS # (AUTO) 0.2 10^3/uL (0.0-0.7); EOSINOPHILS % (AUTO) 4.6 %; HGB - HEMOGLOBIN 12.6 g/dL (12.0-16.0); LYMPHOCYTES # (AUTO) 1.1 10^3/uL (1.5-3.5); LYMPHOCYTES % (AUTO) 28.3 %; MEAN CORPUSCULAR HEMOGLOBIN 29.1 pg (27.0-31.0); MEAN CORPUSCULAR HGB CONC 31.7 g/dL (32.0-36.0); MEAN CORPUSCULAR VOLUME 91.9 fL (81.0-99.0); MEAN PLATELET VOLUME 9.8 fL (7.9-10.8); MONOCYTES # (AUTO) 0.6 10^3/uL (0.0-1.0); MONOCYTES % (AUTO) 15.1 %; NEUTROPHILS # (AUTO) 1.7 10^3/uL (1.5-6.6); NEUTROPHILS % (AUTO) 46.9 %; PLT - PLATELET COUNT 222 10^3/uL (130-450); RED BLOOD COUNT 4.33 10^6/uL (4.20-5.40); RED CELL DISTRIBUTION WIDTH 14.6 % (12.0-15.0); WHITE BLOOD COUNT 3.7 x10^3/uL (4.8-10.8)
[2019-08-30 17:39] LABS: ALBUMIN/GLOBULIN RATIO 1.3 (1.0-2.2); BILIRUBIN,TOTAL 0.7 mg/dL (0.2-1.0); CREATININE 0.6 mg/dL (0.4-1.0); TOTAL PROTEIN 7.2 g/dL (6.7-8.2)
== END 2019-08-30 09:23 | disposition home or self-care (01) ==
LOC: LAB.S 09:22
PROVIDERS: ATTEND Internal Medicine Hematology & Oncology
DX: C92.10 Chronic myeloid leukemia, BCR/ABL-positive, not having achieved remission (principal)
CPT/HCPCS: 36415; 80053; 85025

== ENCOUNTER 2019-11-15 10:59 | Outpatient (CLI) | payer MEDICARE, OTHER ==
[2019-11-15 17:18] LABS: BASOPHILS # (AUTO) 0.1 10^3/uL (0.0-0.1); EOSINOPHILS # (AUTO) 0.1 10^3/uL (0.0-0.7); EOSINOPHILS % (AUTO) 1.6 %; HGB - HEMOGLOBIN 12.4 g/dL (12.0-16.0); LYMPHOCYTES # (AUTO) 1.5 10^3/uL (1.5-3.5); LYMPHOCYTES % (AUTO) 27.5 %; MEAN CORPUSCULAR HEMOGLOBIN 29.2 pg (27.0-31.0); MEAN CORPUSCULAR HGB CONC 31.8 g/dL (32.0-36.0); MEAN PLATELET VOLUME 9.2 fL (7.9-10.8); MONOCYTES # (AUTO) 1.3 10^3/uL (0.0-1.0); MONOCYTES % (AUTO) 23.3 %; NEUTROPHILS # (AUTO) 2.5 10^3/uL (1.5-6.6); NEUTROPHILS % (AUTO) 45.1 %; PLT - PLATELET COUNT 191 10^3/uL (130-450); RED BLOOD COUNT 4.24 10^6/uL (4.20-5.40); RED CELL DISTRIBUTION WIDTH 14.2 % (12.0-15.0); WHITE BLOOD COUNT 5.5 x10^3/uL (4.8-10.8)
[2019-11-15 17:29] LABS: ALBUMIN 3.9 g/dL (3.2-5.5); ALBUMIN/GLOBULIN RATIO 1.2 (1.0-2.2); BILIRUBIN,TOTAL 0.5 mg/dL (0.2-1.0); CALCIUM 8.8 mg/dL (8.5-10.3); CREATININE 0.5 mg/dL (0.4-1.0); TOTAL PROTEIN 7.2 g/dL (6.7-8.2)
== END 2019-11-15 11:00 | disposition home or self-care (01) ==
LOC: LAB.S 10:59
PROVIDERS: ATTEND Internal Medicine Hematology & Oncology
DX: C92.10 Chronic myeloid leukemia, BCR/ABL-positive, not having achieved remission (principal)
CPT/HCPCS: 36415; 80053; 85025

== ENCOUNTER 2020-03-20 15:02 | Outpatient (CLI) | payer MEDICARE, OTHER ==
[2020-03-20 20:16] LABS: BASOPHILS # (AUTO) 0.1 10^3/uL (0.0-0.1); EOSINOPHILS # (AUTO) 0.1 10^3/uL (0.0-0.7); EOSINOPHILS % (AUTO) 3.3 %; HGB - HEMOGLOBIN 12.1 g/dL (12.0-16.0); LYMPHOCYTES # (AUTO) 1.3 10^3/uL (1.5-3.5); LYMPHOCYTES % (AUTO) 31.5 %; MEAN CORPUSCULAR HEMOGLOBIN 32.7 pg (27.0-31.0); MEAN CORPUSCULAR HGB CONC 33.7 g/dL (32.0-36.0); MEAN PLATELET VOLUME 9.8 fL (7.9-10.8); MONOCYTES # (AUTO) 0.7 10^3/uL (0.0-1.0); MONOCYTES % (AUTO) 18.5 %; NEUTROPHILS # (AUTO) 1.8 10^3/uL (1.5-6.6); NEUTROPHILS % (AUTO) 44.2 %; PLT - PLATELET COUNT 169 10^3/uL (130-450); RED CELL DISTRIBUTION WIDTH 14.5 % (12.0-15.0)
[2020-03-20 20:24] LABS: ALBUMIN 4.8 g/dL (3.2-5.5); ALBUMIN/GLOBULIN RATIO 1.7 (1.0-2.2); CALCIUM 9.4 mg/dL (8.5-10.3); CREATININE 0.7 mg/dL (0.4-1.0); TOTAL PROTEIN 7.7 g/dL (6.7-8.2)
== END 2020-03-20 15:03 | disposition home or self-care (01) ==
LOC: LAB.S 15:02
PROVIDERS: ATTEND Internal Medicine Hematology & Oncology
DX: C92.10 Chronic myeloid leukemia, BCR/ABL-positive, not having achieved remission (principal)
CPT/HCPCS: 36415; 80053; 85025

== ENCOUNTER 2020-07-13 12:09 | Outpatient (CLI) | payer MEDICARE, OTHER | END 2020-07-13 12:10 | disposition home or self-care (01) | LOC: LAB.S 12:09 | PROVIDERS: ATTEND Internal Medicine Hematology & Oncology | DX: Z53.9 Procedure and treatment not carried out, unspecified reason (principal) ==

== ENCOUNTER 2020-08-07 11:57 | Outpatient (CLI) | payer MEDICARE, OTHER ==
[2020-08-07 15:42] LABS: CREATININE 0.8 mg/dL (0.4-1.0)
== END 2020-08-07 11:58 | disposition home or self-care (01) ==
LOC: LAB.S 11:57
PROVIDERS: ATTEND Nurse Practitioner
DX: I48.0 Paroxysmal atrial fibrillation (principal)
CPT/HCPCS: 36415; 82565

== ENCOUNTER 2020-09-17 10:30 | Outpatient (CLI) | payer MEDICARE, OTHER | END 2020-09-17 23:59 | disposition home or self-care (01) | LOC: RT 10:30 | PROVIDERS: ATTEND Internal Medicine Cardiovascular Disease | DX: I48.91 Unspecified atrial fibrillation (principal) | CPT/HCPCS: 93005 ==

== ENCOUNTER 2020-09-21 14:31 | Outpatient (CLI) | payer MEDICARE, OTHER ==
[2020-09-21 20:26] LABS: BASOPHILS # (AUTO) 0.1 10^3/uL (0.0-0.1); BASOPHILS % (AUTO) 2.2 %; EOSINOPHILS # (AUTO) 0.2 10^3/uL (0.0-0.7); EOSINOPHILS % (AUTO) 4.9 %; LYMPHOCYTES # (AUTO) 1.2 10^3/uL (1.5-3.5); MEAN CORPUSCULAR HEMOGLOBIN 31.8 pg (27.0-31.0); MEAN CORPUSCULAR HGB CONC 33.1 g/dL (32.0-36.0); MEAN PLATELET VOLUME 9.8 fL (7.9-10.8); MONOCYTES # (AUTO) 0.6 10^3/uL (0.0-1.0); MONOCYTES % (AUTO) 15.6 %; NEUTROPHILS % (AUTO) 48.1 %; PLT - PLATELET COUNT 216 10^3/uL (130-450); RED BLOOD COUNT 3.77 10^6/uL (4.20-5.40); WHITE BLOOD COUNT 4.1 x10^3/uL (4.8-10.8)
[2020-09-21 20:52] LABS: ALBUMIN 4.1 g/dL (3.2-5.5); ALBUMIN/GLOBULIN RATIO 1.5 (1.0-2.2); BILIRUBIN,TOTAL 0.7 mg/dL (0.2-1.0); CALCIUM 9.1 mg/dL (8.5-10.3); CREATININE 0.6 mg/dL (0.4-1.0); TOTAL PROTEIN 6.9 g/dL (6.7-8.2)
== END 2020-09-21 14:32 | disposition home or self-care (01) ==
LOC: LAB.S 14:31
PROVIDERS: ATTEND Internal Medicine Hematology & Oncology
DX: C92.10 Chronic myeloid leukemia, BCR/ABL-positive, not having achieved remission (principal)
CPT/HCPCS: 36415; 80053; 85025

== ENCOUNTER 2020-12-22 08:18 | Outpatient (CLI) | payer MEDICARE, OTHER | END 2020-12-22 08:19 | disposition home or self-care (01) | LOC: LAB.S 08:18 → LAB 08:19 | PROVIDERS: ATTEND Internal Medicine Hematology & Oncology | DX: C92.10 Chronic myeloid leukemia, BCR/ABL-positive, not having achieved remission (principal) | CPT/HCPCS: 36415 ==

== ENCOUNTER 2021-02-08 08:00 | Outpatient (CLI) | payer MEDICARE, OTHER ==
--- NOTE | 2021-02-08 16:54 | XRAY Report ---
PROCEDURE: Chest 2 View X-Ray INDICATIONS: RIGHT FLANK PAIN TECHNIQUE: 2 view(s) of the chest. COMPARISON: 02/19/2019 chest x-ray FINDINGS: Surgical changes and devices: None. Lungs and pleura: No pleural effusions or pneumothorax. There is mild diffuse upper lung predominant reticulonodular density, new since the prior examination. Mediastinum: Mediastinal contours are normal. Heart size is normal. Bones and chest wall: No suspicious bony abnormalities. Soft tissues appear unremarkable. IMPRESSION: Mild atypical pneumonia. Reviewed by: Mark Olsen MD on 02/08/2021 4:53 PM PDT Approved by: Mark Olsen MD on 02/08/2021 4:53 PM PDT Station ID: [id number]
== END 2021-02-08 23:59 | disposition home or self-care (01) ==
LOC: DI.S 08:00
PROVIDERS: ATTEND Physician Assistant
DX: J18.9 Pneumonia, unspecified organism (principal)

== ENCOUNTER 2021-02-08 17:54 | Emergency (ER) | payer MEDICARE, OTHER ==
[2021-02-08 18:25] LABS: BASOPHILS # (AUTO) 0.1 10^3/uL (0.0-0.1); BASOPHILS % (AUTO) 1.6 %; EOSINOPHILS # (AUTO) 0.1 10^3/uL (0.0-0.7); EOSINOPHILS % (AUTO) 2.9 %; HGB - HEMOGLOBIN 12.4 g/dL (12.0-16.0); LYMPHOCYTES # (AUTO) 1.5 10^3/uL (1.5-3.5); LYMPHOCYTES % (AUTO) 31.4 %; MEAN CORPUSCULAR HEMOGLOBIN 31.8 pg (27.0-31.0); MEAN CORPUSCULAR HGB CONC 33.5 g/dL (32.0-36.0); MEAN CORPUSCULAR VOLUME 94.9 fL (81.0-99.0); MEAN PLATELET VOLUME 8.7 fL (7.9-10.8); MONOCYTES # (AUTO) 0.8 10^3/uL (0.0-1.0); MONOCYTES % (AUTO) 16.2 %; NEUTROPHILS # (AUTO) 2.3 10^3/uL (1.5-6.6); NEUTROPHILS % (AUTO) 46.9 %; PLT - PLATELET COUNT 194 10^3/uL (130-450); RED CELL DISTRIBUTION WIDTH 13.2 % (12.0-15.0); WHITE BLOOD COUNT 4.9 x10^3/uL (4.8-10.8)
[2021-02-08 18:36] LABS: ALBUMIN 4.3 g/dL (3.2-5.5); ALBUMIN/GLOBULIN RATIO 1.1 (1.0-2.2); BILIRUBIN,TOTAL 0.6 mg/dL (0.2-1.0); CALCIUM 9.6 mg/dL (8.5-10.3); CREATININE 0.7 mg/dL (0.4-1.0); POTASSIUM 4.3 mmol/L (3.5-5.0); TOTAL PROTEIN 8.1 g/dL (6.7-8.2)
--- NOTE | 2021-02-08 18:49 | ED Physician Documentation ---
PD HPI ABD PAIN - Stated complaint Stated Complaint: BACK PX - Chief complaint Chief Complaint: Abd Pain - History obtained from History obtained from: Patient - Additional information Additional information: 85-year-old woman with history of CML and A. fib presents with intermittent waxing and waning right flank pain which is not positional and fairly random but generally increasing over the last week. Not associated with urinary complaints. She went to urgent care and was sent here. Urinalysis there reportedly normal. Review of Systems Ten Systems: 10 systems reviewed and negative Constitutional: reports: Reviewed and negative Ears: reports: Reviewed and negative Nose: reports: Reviewed and negative Throat: reports: Reviewed and negative Cardiac: reports: Reviewed and negative Respiratory: reports: Reviewed and negative PD PAST MEDICAL HISTORY - Past Medical History Cardiovascular: Hypertension, High cholesterol, Atrial fibrillation Respiratory: None Endocrine/Autoimmune: None GI: None : None HEENT: Glaucoma, Macular degeneration Psych: None Musculoskeletal: Osteoporosis Derm: None - Past Surgical History Past Surgical History: Yes 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, Colonoscopy /PLANT 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: Oophrectomy HEENT: Cataracts, Tonsil/Adenoidectomy - Present Medications Home Medications: Ambulatory Orders Medication Instructions Recorded Confirmed Atorvastatin Calcium 20 mg PO DAILY 04/24/17 02/08/21 Bimatoprost [Lumigan] 1 drp OP DAILY PM 04/24/17 02/08/21 Rivaroxaban [Xarelto] 20 mg PO DAILY 04/24/17 02/08/21 Timolol Maleate/Pf [Timoptic 0.25% 1 drp OP BID 04/24/17 02/08/21 Ocudose Drop] atenoloL [Tenormin] 25 mg PO BID 04/24/17 02/08/21 Dasatinib [Sprycel] 40 tab PO DAILY 02/08/21 02/08/21 - Allergies Allergies/Adverse Reactions: Allergies Allergy/AdvReac Type Severity Reaction Status Date / Time morphine Allergy Intermediate Nausea Verified 02/08/21 17:58 - Social History Does the pt smoke?: No Smoking Status: Never smoker Does the pt drink ETOH?: Yes Does the pt have substance abuse?: No PD ED PE NORMAL - Vitals Vital signs reviewed: Yes - General General: Alert and oriented X 3, Other (Generally comfortable at rest but does wince for a few moments during exam without motion.) - HEENT HEENT: PERRL, EOMI - Neck Neck: Supple, no meningeal sign, No bony TTP - Cardiac Cardiac: RRR, No murmur - Respiratory Respiratory: No respiratory distress, Clear bilaterally - Abdomen Abdomen: Normal bowel sounds, Soft, Non tender - Back Back: Other (I am unable to recreate the pain with palpation of the back or abdomen.) - Derm Derm: No rash - Extremities Extremities: No edema, No calf tenderness / cord - Neuro Neuro: Alert and oriented X 3, Normal speech Results - Vitals Vitals: Vital Signs - 24 hr 02/08/21 02/08/21 17:58 20:01 Temperature 36.5 C 36.5 C Heart Rate 60 60 Respiratory 16 18 Rate Blood Pressure 190/68 H 180/63 H O2 Saturation 98 98 Oxygen O2 Source Room air - Labs Labs: Laboratory Tests 02/08/21 02/08/21 18:17 18:17 WBC 4.9 RBC 3.90 L Hgb 12.4 Hct 37.0 MCV 94.9 MCH 31.8 H MCHC 33.5 RDW 13.2 Plt Count 194 MPV 8.7 Neut # (Auto) 2.3 Lymph # (Auto) 1.5 [place] # (Auto) 0.8 Eos # (Auto) 0.1 Baso # (Auto) 0.1 Absolute Nucleated RBC 0.00 Nucleated RBC % 0.0 Sodium 129 L Potassium 4.3 Chloride 92 L Carbon Dioxide 28 Anion Gap 9.0 BUN 6 Creatinine 0.7 Estimated GFR (MDRD) 80 L Glucose 103 H Calcium 9.6 Total Bilirubin 0.6 AST 23 ALT 18 Alkaline Phosphatase 64 Total Protein 8.1 Albumin 4.3 Globulin 3.8 Albumin/Globulin Ratio 1.1 Lipase 33 PD MEDICAL DECISION MAKING - ED course ED course: 85-year-old woman presents with crampy right flank pain. Declined pain medication. Differential diagnosis includes renal colic, vascular emergency, there is no evidence of shingles. CT shows a large amount of stool in the colon. This may be causative. She does have prominent gonadal veins but she has no pelvic pain. Other incidental findings were discussed with her. Departure - Departure Disposition: 01 Home, Self Care Clinical Impression: Right flank pain Constipation Qualifiers: Constipation type: unspecified constipation type Qualified Code(s): K59.00 - Constipation, unspecified Condition: Good Record reviewed to determine appropriate education?: Yes Instructions: ED Abdominal Pain Unkn Cause Comments: Return if not better after the laxative has done its job. Or return if you develop new or worsening symptoms. Follow-up with your primary care physician, next available appointment.
[2021-02-08] MEDS ORDERED: IOVERSOL 320 100 ML VIAL IVP ONE ×2 (18:53→19:12)
--- NOTE | 2021-02-08 20:02 | CT Report ---
PROCEDURE: Abdomen/Pelvis W INDICATIONS: flank pain CONTRAST: IV CONTRAST: Optiray 320 ml: 100 PO CONTRAST: *NO PO CONTRAST TECHNIQUE: After the administration of hernias contrast, 5 mm thick sections acquired from the diaphragms to the symphysis. 5 mm thick coronal and sagittal reformats were acquired. For radiation dose reduction, the following was used: automated exposure control, adjustment of mA and/or kV according to patient size. COMPARISON: None. FINDINGS: Image quality: Excellent. ABDOMEN: Lung bases: Scars and atelectasis in the lingula and right middle lobe. Heart size is moderate incre ase. Solid organs: Liver and spleen are normal in size and enhancement. Gallbladder is normal. Biliary system is non dilated. Pancreas enhances normally. No adrenal nodules. Kidneys demonstrate normal size and enhancement, without hydronephrosis. Peritoneum and bowel: There is a large amount of stool in colon. Bowel loops demonstrate normal wall thickness and caliber. No free fluid or air. Nodes and vessels: No retroperitoneal or mesenteric adenopathy by size criteria. Aorta and inferior vena cava are normal in size. Mild atherosclerotic calcifications Miscellaneous: No ventral hernias. PELVIS: Genitourinary: Bladder wall thickness is normal. Uterus is atrophic. Prominent collateral veins. Miscellaneous: No inguinal hernias or adenopathy. Bones: Moderate to severe scoliosis. Anterolisthesis of L4 on L5 and L5-S1. Severe degenerative disc and facet disease in lumbar spine. No suspicious bony lesions. No vertebral body compression fractu res. IMPRESSION: 1. No acute abdominal or pelvic process. Cause for right flank pain is not definitively identified. 2. A large amount stool in colon. 3. 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 4. Scoliosis and severe degenerative disease in lumbar spine. 5. Moderate cardiomegaly. Reviewed by: Riki Atkinson MD on 02/08/2021 8:01 PM PDT Approved by: Riki Atkinson MD on 02/08/2021 8:01 PM PDT Station ID: [id number]
[2021-02-08 20:14] VITALS: BP 180/63
[2021-02-08] MEDS ORDERED: MAGNESIUM CITRATE 296 ML BOTTLE PO STA (20:41)
== END 2021-02-08 20:50 | disposition home or self-care (01) ==
LOC: ED 17:54
DX: K59.00 Constipation, unspecified (principal); J18.9 Pneumonia, unspecified organism; I10 Essential (primary) hypertension; I48.91 Unspecified atrial fibrillation; Z79.01 Long term (current) use of anticoagulants
CPT/HCPCS: 36415; 71046; 74177; 80053; 83690; 85025; 99284; A9270; Q9967

== ENCOUNTER 2021-02-22 09:02 | Outpatient (CLI) | payer MEDICARE, OTHER ==
--- NOTE | 2021-02-22 16:11 | XRAY Report ---
PROCEDURE: Thoracic Spine 2 View INDICATIONS: ABNORMAL NM SCAN SHOWS COMPRESSION FX TECHNIQUE: 3 views of the thoracic spine were acquired. COMPARISON: Nuclear medicine bone scan same day reviewed. This bone scan shows, from posterior image acquisition, what appears to be a single compression fracture at T7 vertebral level. FINDINGS: Bones: No dislocations but there is moderately severe degenerative disc disease along the entirety of the thoracic spine and there is a moderate anterior wedge compression fracture at what appears to be the T7 vertebral level correlated with the nuclear medicine bone scan and visualization of the low thoracic ribs on the lateral projection. The height reduction is 40% anteriorly and approximately 10 % posteriorly, at the T7 vertebral level. No suspicious bony lesions that would indicate infection o r neoplasm as cause.. 12 pairs of ribs are noted, and appear intact where visualized. Soft tissues: No paravertebral stripe thickening. IMPRESSION: Quality of visualization of the thoracic spine is somewhat limited by generalized osteopenia and mode rately severe generalized degenerative disc disease. No subluxation is associated. There is a moderat e wedge compression fracture as discussed above at what appears to be the T7 vertebral body from refe rence to the bone scan imaging and normal anatomic reference points on plain film imaging. Osteoporot ic origin is the likely cause, by appearance. Reviewed by: Jero Beard MD on 02/22/2021 4:09 PM PDT Approved by: Jero Beard MD on 02/22/2021 4:09 PM PDT Station ID: [id number]
--- NOTE | 2021-02-22 16:47 | Nuclear Medicine Report ---
PROCEDURE: Bone Whole Body INDICATIONS: SEVERE RIGHT POSTERIOR RIB PAIN RADIOPHARMACEUTICAL: 26.6 mCi Tc-99m MDP IV. TECHNIQUE: Delayed whole-body scintigrams were obtained approximately 3-4 hours after intravenous injection of r adiotracer. Anterior and posterior views were acquired from vertex to feet. Additional left and rig ht oblique views of the thorax and cervical spine were obtained. COMPARISON: Thoracic spine x-ray series obtained 02/22/2021 FINDINGS: Intense radiotracer uptake identified in the the T7 vertebral body which corresponds to th e compression deformity identified by plain from radiographs indicating compression fracture is acute /subacute. There is relatively mild radiotracer uptake identified in the cervical spine, lumbar spine , shoulders bilaterally and wrists bilaterally compatible with osteoarthritis. Convex left lumbar spi ne scoliosis is noted. IMPRESSION: Increased radiotracer uptake identified in the T7 vertebral body most compatible with acute/subacute compression fracture. If there is clinical concern for pathologic compression fracture, MRI of the t horacic spine with and without contrast (for further evaluation. Reviewed by: Cristine Brandon MD, PhD on 02/22/2021 4:46 PM PDT Approved by: Cristine Brandon MD, PhD on 02/22/2021 4:46 PM PDT Station ID: [id number]
== END 2021-02-22 09:03 | disposition home or self-care (01) ==
LOC: DI 09:02
PROVIDERS: ATTEND Internal Medicine
DX: M85.88 Other specified disorders of bone density and structure, other site (principal); R93.7 Abnormal findings on diagnostic imaging of other parts of musculoskeletal system; M51.34 Other intervertebral disc degeneration, thoracic region; S22.060A Wedge compression fracture of T7-T8 vertebra, initial encounter for closed fracture
CPT/HCPCS: 78306

== ENCOUNTER 2021-03-16 08:08 | Outpatient (CLI) | payer MEDICARE, OTHER | END 2021-03-16 08:09 | disposition home or self-care (01) | LOC: LAB 08:08 | DX: Z01.89 Encounter for other specified special examinations (principal); C92.10 Chronic myeloid leukemia, BCR/ABL-positive, not having achieved remission | CPT/HCPCS: 36415 ==

== ENCOUNTER 2021-04-14 08:04 | Outpatient (CLI) | payer MEDICARE, OTHER ==
[2021-04-14 15:58] LABS: BASOPHILS # (AUTO) 0.1 10^3/uL (0.0-0.1); BASOPHILS % (AUTO) 2.8 %; EOSINOPHILS # (AUTO) 0.3 10^3/uL (0.0-0.7); EOSINOPHILS % (AUTO) 6.8 %; HCT - HEMATOCRIT 36.3 % (37.0-47.0); HGB - HEMOGLOBIN 11.6 g/dL (12.0-16.0); LYMPHOCYTES # (AUTO) 1.1 10^3/uL (1.5-3.5); LYMPHOCYTES % (AUTO) 28.1 %; MEAN CORPUSCULAR HEMOGLOBIN 30.1 pg (27.0-31.0); MEAN CORPUSCULAR VOLUME 94.3 fL (81.0-99.0); MONOCYTES # (AUTO) 0.9 10^3/uL (0.0-1.0); MONOCYTES % (AUTO) 21.5 %; NEUTROPHILS # (AUTO) 1.6 10^3/uL (1.5-6.6); NEUTROPHILS % (AUTO) 39.8 %; PLT - PLATELET COUNT 194 10^3/uL (130-450); RED BLOOD COUNT 3.85 10^6/uL (4.20-5.40); RED CELL DISTRIBUTION WIDTH 13.9 % (12.0-15.0)
[2021-04-14 16:53] LABS: ALBUMIN/GLOBULIN RATIO 1.2 (1.0-2.2); ALKALINE PHOSPHATASE 62 IU/L (42-121); ALT ALANINE AMINOTRANSFERASE 18 IU/L (10-60); AST ASPARTATE AMINOTRANSFERASE 23 IU/L (10-42); BILIRUBIN,TOTAL 0.6 mg/dL (0.2-1.0); BUN - BLOOD UREA NITROGEN 9 mg/dL (6-20); CALCIUM 9.4 mg/dL (8.5-10.3); CARBON DIOXIDE - CO2 27 mmol/L (21-32); CHLORIDE 90 mmol/L (101-111); CHOL/HDL RATIO 2.1 (<4.4); CHOLESTEROL 169 mg/dL; CREATININE 0.6 mg/dL (0.4-1.0); GFR - MDRD 95 (>89); GLUCOSE 103 mg/dL (70-100); HDL CHOLESTEROL 81 mg/dL; LDL CHOLESTEROL,CALCULATED 76 mg/dL; LDL/HDL RATIO 0.9 (<4.4); LIPASE 56 U/L (22-51); POTASSIUM 4.4 mmol/L (3.5-5.0); SODIUM 124 mmol/L (135-145); TOTAL PROTEIN 7.4 g/dL (6.7-8.2); TRIGLYCERIDES 58 mg/dL; VLDL CHOLESTEROL 12 mg/dL
== END 2021-04-14 08:05 | disposition home or self-care (01) ==
LOC: LAB.S 08:04
PROVIDERS: ATTEND Physician Assistant
DX: C92.10 Chronic myeloid leukemia, BCR/ABL-positive, not having achieved remission (principal); D35.2 Benign neoplasm of pituitary gland
CPT/HCPCS: 36415; 80053; 80061; 82565; 83690; 83721; 85025

== ENCOUNTER 2021-04-29 08:05 | Outpatient (CLI) | payer MEDICARE, OTHER ==
[2021-04-29 15:21] LABS: BASOPHILS # (AUTO) 0.1 10^3/uL (0.0-0.1); BASOPHILS % (AUTO) 2.7 %; EOSINOPHILS # (AUTO) 0.2 10^3/uL (0.0-0.7); EOSINOPHILS % (AUTO) 7.2 %; HCT - HEMATOCRIT 38.3 % (37.0-47.0); HGB - HEMOGLOBIN 12.2 g/dL (12.0-16.0); LYMPHOCYTES # (AUTO) 0.9 10^3/uL (1.5-3.5); LYMPHOCYTES % (AUTO) 25.5 %; MEAN CORPUSCULAR HGB CONC 31.9 g/dL (32.0-36.0); MEAN CORPUSCULAR VOLUME 94.1 fL (81.0-99.0); MEAN PLATELET VOLUME 10.1 fL (7.9-10.8); MONOCYTES # (AUTO) 0.7 10^3/uL (0.0-1.0); MONOCYTES % (AUTO) 19.5 %; NEUTROPHILS # (AUTO) 1.5 10^3/uL (1.5-6.6); NEUTROPHILS % (AUTO) 43.9 %; PLT - PLATELET COUNT 213 10^3/uL (130-450); RED BLOOD COUNT 4.07 10^6/uL (4.20-5.40); RED CELL DISTRIBUTION WIDTH 13.5 % (12.0-15.0); WHITE BLOOD COUNT 3.3 x10^3/uL (4.8-10.8)
[2021-04-29 15:39] LABS: ALBUMIN/GLOBULIN RATIO 1.1 (1.0-2.2); BILIRUBIN,TOTAL 0.5 mg/dL (0.2-1.0); CALCIUM 9.4 mg/dL (8.5-10.3); CREATININE 0.7 mg/dL (0.4-1.0); POTASSIUM 4.3 mmol/L (3.5-5.0); TOTAL PROTEIN 7.7 g/dL (6.7-8.2)
== END 2021-04-29 08:06 | disposition home or self-care (01) ==
LOC: LAB.S 08:05
PROVIDERS: ATTEND Physician Assistant
DX: C92.10 Chronic myeloid leukemia, BCR/ABL-positive, not having achieved remission (principal)
CPT/HCPCS: 36415; 80053; 83690; 85025

== ENCOUNTER 2021-05-12 08:29 | Outpatient (CLI) | payer MEDICARE, OTHER ==
[2021-05-12 15:16] LABS: BASOPHILS # (AUTO) 0.1 10^3/uL (0.0-0.1); BASOPHILS % (AUTO) 3.7 %; EOSINOPHILS # (AUTO) 0.6 10^3/uL (0.0-0.7); EOSINOPHILS % (AUTO) 16.3 %; HCT - HEMATOCRIT 38.8 % (37.0-47.0); HGB - HEMOGLOBIN 12.3 g/dL (12.0-16.0); LYMPHOCYTES # (AUTO) 0.8 10^3/uL (1.5-3.5); LYMPHOCYTES % (AUTO) 21.8 %; MEAN CORPUSCULAR HEMOGLOBIN 29.6 pg (27.0-31.0); MEAN CORPUSCULAR HGB CONC 31.7 g/dL (32.0-36.0); MEAN CORPUSCULAR VOLUME 93.5 fL (81.0-99.0); MONOCYTES # (AUTO) 0.7 10^3/uL (0.0-1.0); MONOCYTES % (AUTO) 17.6 %; NEUTROPHILS # (AUTO) 1.5 10^3/uL (1.5-6.6); NEUTROPHILS % (AUTO) 39.5 %; PLT - PLATELET COUNT 184 10^3/uL (130-450); RED BLOOD COUNT 4.15 10^6/uL (4.20-5.40); RED CELL DISTRIBUTION WIDTH 13.7 % (12.0-15.0); WHITE BLOOD COUNT 3.8 x10^3/uL (4.8-10.8)
[2021-05-12 15:37] LABS: ALBUMIN 4.1 g/dL (3.2-5.5); ALBUMIN/GLOBULIN RATIO 1.2 (1.0-2.2); BILIRUBIN,TOTAL 0.6 mg/dL (0.2-1.0); CALCIUM 9.6 mg/dL (8.5-10.3); CREATININE 0.7 mg/dL (0.4-1.0); POTASSIUM 4.1 mmol/L (3.5-5.0); TOTAL PROTEIN 7.4 g/dL (6.7-8.2)
== END 2021-05-12 08:30 | disposition home or self-care (01) ==
LOC: LAB.S 08:29
PROVIDERS: ATTEND Physician Assistant
DX: C92.10 Chronic myeloid leukemia, BCR/ABL-positive, not having achieved remission (principal)
CPT/HCPCS: 36415; 80053; 82150; 83690; 85025

== ENCOUNTER 2021-05-19 11:26 | Outpatient (CLI) | payer MEDICARE, OTHER | END 2021-05-19 11:27 | disposition critical access hospital (66) | LOC: EMS 11:26 | DX: I48.91 Unspecified atrial fibrillation (principal) | CPT/HCPCS: A0425; A0427 ==

== ENCOUNTER 2021-05-19 11:57 | Emergency (ER) | payer MEDICARE, OTHER ==
--- NOTE | 2021-05-19 13:50 | ED Physician Documentation ---
History of Present Illness - Stated complaint Stated Complaint: SOA/DIZZY - Chief complaint Chief Complaint: Cardiac - History obtained from History obtained from: Patient - History of Present Illness Timing: Today Pain level max: 0 Pain level now: 0 - Additonal information Additional information: Patient is an 86-year-old female with a longstanding history of atrial fibrillation presents to the emergency department after being found to be in A. fib with RVR by EMS today. She was feeling short of breath at that time. She was given diltiazem by EMS and have now resolved. Nothing makes it better or worse. Review of Systems Constitutional: denies: Fever, Chills Respiratory: reports: Dyspnea. denies: Cough GI: denies: Nausea, Vomiting, Diarrhea Skin: denies: Rash Musculoskeletal: denies: Neck pain, Back pain Neurologic: denies: Headache PD PAST MEDICAL HISTORY - Past Medical History Past Medical History: Yes Cardiovascular: Hypertension, High cholesterol, Atrial fibrillation Respiratory: None Endocrine/Autoimmune: None GI: None : None HEENT: Glaucoma, Macular degeneration Psych: None Musculoskeletal: Osteoporosis Derm: None - Past Surgical History Past Surgical History: Yes 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, Colonoscopy /WORM GROWER: Oophrectomy HEENT: Cataracts, Tonsil/Adenoidectomy - Present Medications Home Medications: Ambulatory Orders Medication Instructions Recorded Confirmed Atorvastatin Calcium 20 mg PO DAILY 04/24/17 02/08/21 Bimatoprost [Lumigan] 1 drp OP DAILY PM 04/24/17 02/08/21 Rivaroxaban [Xarelto] 20 mg PO DAILY 04/24/17 02/08/21 Timolol Maleate/Pf [Timoptic 0.25% 1 drp OP BID 04/24/17 02/08/21 Ocudose Drop] atenoloL [Tenormin] 25 mg PO BID 04/24/17 02/08/21 Dasatinib [Sprycel] 40 tab PO DAILY 02/08/21 02/08/21 diltiaZEM CD [Cardizem Cd] 120 mg PO DAILY #30 cap 05/19/21 - Allergies Allergies/Adverse Reactions: Allergies Allergy/AdvReac Type Severity Reaction Status Date / Time morphine Allergy Intermediate Nausea Verified 05/19/21 12:01 - Social History Does the pt smoke?: No Smoking Status: Never smoker Does the pt drink ETOH?: Yes Does the pt have substance abuse?: No - Immunizations Immunizations are current?: Yes - POLST Patient has POLST: No PD ED PE NORMAL - Vitals Vital signs reviewed: Yes - General General: Alert and oriented X 3, No acute distress, Well developed/nourished - HEENT HEENT: PERRL, Moist mucous membranes - Neck Neck: Supple, no meningeal sign - Cardiac Cardiac: Strong equal pulses, Other (tachycardic, irregular) - Respiratory Respiratory: No respiratory distress, Clear bilaterally - Abdomen Abdomen: Soft, Non tender, Non distended - Derm Derm: Warm and dry, No rash - Extremities Extremities: No deformity - Neuro Neuro: Alert and oriented X 3 - Psych Psych: Normal mood, Normal affect Results - Vitals Vitals: Vital Signs - 24 hr 05/19/21 05/19/21 05/19/21 12:01 12:20 14:19 Temperature 36.6 C Heart Rate 112 H 107 H 121 H Respiratory 18 21 15 Rate Blood Pressure 132/64 H 132/64 H 116/59 L O2 Saturation 98 98 97 05/19/21 15:33 Temperature 36.5 C Heart Rate 50 L Respiratory 17 Rate Blood Pressure 117/60 O2 Saturation 97 Oxygen O2 Source Room air - EKG (time done) 1200 Rate: Rate (enter#) (87) Rhythm: Atrial fibrillation [place]: Normal Intervals: Normal [place] QRS: Normal, LVH Ischemia: Non specific changes - Labs Labs: Laboratory Tests 05/19/21 05/19/21 05/19/21 14:07 14:07 14:07 WBC 5.2 RBC 4.59 Hgb 13.7 Hct 41.9 MCV 91.3 MCH 29.8 MCHC 32.7 RDW 13.5 Plt Count 232 MPV 9.4 Neut # (Auto) 2.3 Lymph # (Auto) 1.2 L [place] # (Auto) 0.9 Eos # (Auto) 0.6 Baso # (Auto) 0.2 H Absolute Nucleated RBC 0.00 Nucleated RBC % 0.0 Sodium 137 Potassium 4.2 Chloride 101 Carbon Dioxide 26 Anion Gap 10.0 BUN 10 Creatinine 0.7 Estimated GFR (MDRD) 80 L Glucose 109 H Calcium 9.4 Total Bilirubin 0.5 AST 142 H ALT 191 H Alkaline Phosphatase 73 Troponin I High Sens 17.0 H* Total Protein 7.2 Albumin 3.9 Globulin 3.3 Albumin/Globulin Ratio 1.2 - Rads (name of study) Chest x-ray Radiology: Final report received, EMP read contemporaneously, See rad report (No acute abnormality) PD MEDICAL DECISION MAKING - ED course Complexity details: reviewed results, re-evaluated patient, considered differential, d/w patient ED course: Patient had another episode of atrial fibrillation while in the emergency department. Rate controlled with diltiazem. We discussed electrical cardioversion. Patient does not want to have this performed. Discussed the c ase with cardiology on-call for Dr. Alan, they recommend placing her on Cardizem 120 mg p.o. for home. Patient is rate controlled here and asymptomatic. Patient counseled regarding signs and symptoms for which I believe and urgent re-evaluation would be necessary. Patient with good understanding of and agreement to plan and is comfortable going home at this time This document was made in part using voice recognition software. While efforts are made to proofread this document, sound alike and grammatical errors may occur. Departure - Departure Disposition: 01 Home, Self Care Clinical Impression: Atrial fibrillation with RVR Condition: Good Instructions: ED Afib Follow-Up: Courtney Cordova MD [Primary Care Provider] - Within 1 week Macario Alan MD [Provider Admit Priv/Credential] - Within 1 week Prescriptions: diltiaZEM CD [Cardizem Cd] 120 mg PO DAILY #30 cap Comments: Continue your medications at home. We will add diltiazem for your rate control for your A. fib. Please follow-up with Dr. Alan for further care. Return if you worsen Discharge Date/Time: 05/19/21 15:57
[2021-05-19 14:13] LABS: BASOPHILS # (AUTO) 0.2 10^3/uL (0.0-0.1); BASOPHILS % (AUTO) 3.9 %; EOSINOPHILS # (AUTO) 0.6 10^3/uL (0.0-0.7); EOSINOPHILS % (AUTO) 10.6 %; HCT - HEMATOCRIT 41.9 % (37.0-47.0); HGB - HEMOGLOBIN 13.7 g/dL (12.0-16.0); LYMPHOCYTES # (AUTO) 1.2 10^3/uL (1.5-3.5); LYMPHOCYTES % (AUTO) 23.6 %; MEAN CORPUSCULAR HEMOGLOBIN 29.8 pg (27.0-31.0); MEAN CORPUSCULAR HGB CONC 32.7 g/dL (32.0-36.0); MEAN CORPUSCULAR VOLUME 91.3 fL (81.0-99.0); MEAN PLATELET VOLUME 9.4 fL (7.9-10.8); MONOCYTES # (AUTO) 0.9 10^3/uL (0.0-1.0); MONOCYTES % (AUTO) 17.4 %; NEUTROPHILS # (AUTO) 2.3 10^3/uL (1.5-6.6); NEUTROPHILS % (AUTO) 43.3 %; PLT - PLATELET COUNT 232 10^3/uL (130-450); RED BLOOD COUNT 4.59 10^6/uL (4.20-5.40); RED CELL DISTRIBUTION WIDTH 13.5 % (12.0-15.0); WHITE BLOOD COUNT 5.2 x10^3/uL (4.8-10.8)
--- NOTE | 2021-05-19 14:21 | XRAY Report ---
PROCEDURE: Chest 1 View X-Ray INDICATIONS: chest pain TECHNIQUE: One view of the chest was acquired. COMPARISON: Chest x-ray 02/08/2021 FINDINGS: Surgical changes and devices: None. Lungs and pleura: No pleural effusions or pneumothorax. Lungs are clear. Lungs are hyperexpanded s uggestive COPD. Mediastinum: Mediastinal contours appear normal. Heart size is normal. Bones and chest wall: No suspicious bony lesions. Overlying soft tissues appear unremarkable. Calc ific tendinitis is noted adjacent to the left humerus. IMPRESSION: No acute pulmonary process. Reviewed by: Evelia Moralez MD on 05/19/2021 2:20 PM PDT Approved by: Evelia Moralez MD on 05/19/2021 2:20 PM PDT Station ID: [id number]
[2021-05-19 14:31] LABS: ALBUMIN 3.9 g/dL (3.2-5.5); ALBUMIN/GLOBULIN RATIO 1.2 (1.0-2.2); BILIRUBIN,TOTAL 0.5 mg/dL (0.2-1.0); CALCIUM 9.4 mg/dL (8.5-10.3); CREATININE 0.7 mg/dL (0.4-1.0); POTASSIUM 4.2 mmol/L (3.5-5.0); TOTAL PROTEIN 7.2 g/dL (6.7-8.2)
[2021-05-19] MEDS ORDERED: diltiaZEM INJ 5 MG/ML VIAL IVP STA (15:06)
[2021-05-19] MEDS ORDERED: diltiaZEM 30 MG TABLET PO STA (15:07)
[2021-05-19 15:35] VITALS: BP 117/60
== END 2021-05-19 15:57 | disposition home or self-care (01) ==
LOC: ED 11:57
DX: I48.20 Chronic atrial fibrillation, unspecified (principal); Z79.01 Long term (current) use of anticoagulants; R94.31 Abnormal electrocardiogram [ECG] [EKG]; I10 Essential (primary) hypertension
CPT/HCPCS: 36415; 80053; 84484; 85025; 93005; 96374; 99284

== ENCOUNTER 2021-05-25 09:52 | Outpatient (CLI) | payer MEDICARE, OTHER ==
[2021-05-25 15:22] LABS: BASOPHILS # (AUTO) 0.2 10^3/uL (0.0-0.1); BASOPHILS % (AUTO) 3.9 %; EOSINOPHILS # (AUTO) 0.4 10^3/uL (0.0-0.7); EOSINOPHILS % (AUTO) 9.4 %; HCT - HEMATOCRIT 37.5 % (37.0-47.0); HGB - HEMOGLOBIN 11.9 g/dL (12.0-16.0); LYMPHOCYTES % (AUTO) 25.9 %; MEAN CORPUSCULAR HEMOGLOBIN 29.4 pg (27.0-31.0); MEAN CORPUSCULAR HGB CONC 31.7 g/dL (32.0-36.0); MEAN CORPUSCULAR VOLUME 92.6 fL (81.0-99.0); MEAN PLATELET VOLUME 9.8 fL (7.9-10.8); MONOCYTES # (AUTO) 0.8 10^3/uL (0.0-1.0); MONOCYTES % (AUTO) 21.5 %; NEUTROPHILS # (AUTO) 1.5 10^3/uL (1.5-6.6); NEUTROPHILS % (AUTO) 38.3 %; PLT - PLATELET COUNT 245 10^3/uL (130-450); RED BLOOD COUNT 4.05 10^6/uL (4.20-5.40); RED CELL DISTRIBUTION WIDTH 13.6 % (12.0-15.0); WHITE BLOOD COUNT 3.8 x10^3/uL (4.8-10.8)
[2021-05-25 15:32] LABS: ALBUMIN 4.1 g/dL (3.2-5.5); ALBUMIN/GLOBULIN RATIO 1.3 (1.0-2.2); CALCIUM 9.3 mg/dL (8.5-10.3); CREATININE 0.6 mg/dL (0.4-1.0); POTASSIUM 4.1 mmol/L (3.5-5.0); TOTAL PROTEIN 7.2 g/dL (6.7-8.2)
== END 2021-05-25 09:53 | disposition home or self-care (01) ==
LOC: LAB.S 09:52
PROVIDERS: ATTEND Physician Assistant
DX: C92.10 Chronic myeloid leukemia, BCR/ABL-positive, not having achieved remission (principal)
CPT/HCPCS: 36415; 80053; 82150; 83690; 85025

== ENCOUNTER 2021-05-28 15:53 | Outpatient (CLI) | payer MEDICARE, OTHER ==
--- NOTE | 2021-05-28 16:27 | XRAY Report ---
PROCEDURE: Ribs w/PA Chest LT INDICATIONS: LEFT RIB PAIN TECHNIQUE: 3 views of the left ribs were acquired, along with a single view chest. COMPARISON: Chest radiograph dated 05/19/2021, 02/08/2021, 02/19/2019. FINDINGS: Surgical changes and devices: None. Bones and chest wall: No fractures or dislocations. No suspicious bony lesions. Overlying soft tis sues appear unremarkable. Lungs and pleura: No pleural effusions or pneumothorax. Chronic appearing scarring/atelectasis in bi lateral lung apices are seen. Unchanged from prior studies. No focal infiltrate is noted. Mediastinum: Mediastinal contours appear normal. Heart size is normal. IMPRESSION: No obvious displaced left rib fracture. No acute cardiopulmonary pathology. Reviewed by: Neil Fernández MD on 05/28/2021 4:25 PM PDT Approved by: Neil Fernández MD on 05/28/2021 4:25 PM PDT Station ID: [id number]
== END 2021-05-28 15:54 | disposition home or self-care (01) ==
LOC: DI.S 15:53
PROVIDERS: ATTEND Internal Medicine
DX: R07.81 Pleurodynia (principal)

== ENCOUNTER 2021-06-01 15:27 | Outpatient (CLI) | payer MEDICARE, OTHER ==
[2021-06-01 19:50] LABS: BASOPHILS # (AUTO) 0.2 10^3/uL (0.0-0.1); BASOPHILS % (AUTO) 2.2 %; EOSINOPHILS # (AUTO) 0.2 10^3/uL (0.0-0.7); EOSINOPHILS % (AUTO) 3.4 %; HCT - HEMATOCRIT 40.8 % (37.0-47.0); HGB - HEMOGLOBIN 13.1 g/dL (12.0-16.0); LYMPHOCYTES # (AUTO) 1.5 10^3/uL (1.5-3.5); LYMPHOCYTES % (AUTO) 21.5 %; MEAN CORPUSCULAR HEMOGLOBIN 29.8 pg (27.0-31.0); MEAN CORPUSCULAR HGB CONC 32.1 g/dL (32.0-36.0); MEAN CORPUSCULAR VOLUME 92.7 fL (81.0-99.0); MEAN PLATELET VOLUME 9.8 fL (7.9-10.8); MONOCYTES # (AUTO) 1.3 10^3/uL (0.0-1.0); MONOCYTES % (AUTO) 19.6 %; NEUTROPHILS # (AUTO) 3.5 10^3/uL (1.5-6.6); NEUTROPHILS % (AUTO) 52.3 %; PLT - PLATELET COUNT 254 10^3/uL (130-450); RED CELL DISTRIBUTION WIDTH 13.6 % (12.0-15.0); WHITE BLOOD COUNT 6.8 x10^3/uL (4.8-10.8)
[2021-06-01 20:06] LABS: ALBUMIN/GLOBULIN RATIO 1.2 (1.0-2.2); BILIRUBIN,TOTAL 0.9 mg/dL (0.2-1.0); CALCIUM 9.2 mg/dL (8.5-10.3); CREATININE 0.8 mg/dL (0.4-1.0); POTASSIUM 3.9 mmol/L (3.5-5.0); TOTAL PROTEIN 7.3 g/dL (6.7-8.2)
== END 2021-06-01 15:28 | disposition home or self-care (01) ==
LOC: LAB.S 15:27
PROVIDERS: ATTEND Physician Assistant
DX: C92.10 Chronic myeloid leukemia, BCR/ABL-positive, not having achieved remission (principal)
CPT/HCPCS: 36415; 80053; 82150; 83690; 85025

== ENCOUNTER 2021-06-05 09:47 | Outpatient (CLI) | payer MEDICARE, OTHER ==
[2021-06-05] MEDS ORDERED: IOVERSOL 320 100 ML VIAL IVP ONE ×2 (09:58→10:16)
--- NOTE | 2021-06-05 11:34 | CT Report ---
PROCEDURE: CT chest with contrast INDICATIONS: SEVERE RIB PAIN, DYSPNEA CONTRAST: IV CONTRAST: Optiray 320 ml: 100 PO CONTRAST: *NO PO CONTRAST TECHNIQUE: After the administration of intravenous contrast, 1 mm axial images were acquired from the pulmonary apices through the posterior costophrenic angles. Axial 5 mm soft tissue kernel reconstructions were performed as well as 8 mm axial MIP and coronal and sagittal 5 mm reformations. For radiation dose reduction, the following was used: automated exposure control, adjustment of mA and/or kV according to patient size. COMPARISON: 04/25/2017. FINDINGS: Image quality: Excellent. Lungs and pleura: In the right middle lobe anteriorly, there is a focal pulmonary nodule measuring 1. 5 x 1.4 x 1.2 cm. Additionally, there are multiple foci of pulmonary reticulonodular thickening with a "tree-in-bud" pattern, particularly noted in both upper lobes. Additional 3 mm right lower lobe per ipheral pulmonary nodule noted. Mediastinum: Heart size is normal. No pericardial effusion. Nonenlarged mediastinal lymph nodes no estuardo No mediastinal or hilar adenopathy by size criteria. Thoracic aorta and central pulmonary arteri es are normal in size. Esophagus is normal in caliber. No hiatal hernia. Bones and chest wall: No suspicious bony lesions. No vertebral body compression fractures. No axil silvia or supraclavicular adenopathy by size criteria. The thyroid is normal in size and there are no incidental findings.. No evidence of rib fracture, lytic or blastic lesion. Degenerative thoracolumba r scoliosis present. Abdomen: Visualized upper abdominal solid organs appear normal. Upper abdominal bowel loops are nor mal in caliber. IMPRESSION: 1. Right middle lobe 1.5 cm pulmonary nodule. Consider 3 month follow-up, PET/CT and/or biopsy. 2. Focal reticulonodular "tree-in-bud" densities in both upper lungs increased in distribution from t he prior exam, likely reflects an infectious etiology. 3. Degenerative thoracic spine. Ribs unremarkable. No fracture or pneumothorax. Reviewed by: Wale Calvin MD on 06/05/2021 10:33 AM BASILIO Approved by: Wale Calvin MD on 06/05/2021 10:33 AM [place]DARIA Station ID: [id number]
== END 2021-06-05 09:48 | disposition home or self-care (01) ==
LOC: DI 09:47
PROVIDERS: ATTEND Internal Medicine
DX: R91.8 Other nonspecific abnormal finding of lung field (principal); R91.1 Solitary pulmonary nodule
CPT/HCPCS: 71260; Q9967

== ENCOUNTER 2021-06-22 11:32 | Outpatient (CLI) | payer SELFPAY | END 2021-06-22 11:33 | disposition home or self-care (01) | LOC: LAB 11:32 | PROVIDERS: ATTEND Internal Medicine Hematology & Oncology | DX: Z01.89 Encounter for other specified special examinations (principal) | CPT/HCPCS: 36415 ==

== ENCOUNTER 2021-06-30 11:14 | Outpatient (CLI) | payer MEDICARE, OTHER ==
[2021-06-30 15:32] LABS: BASOPHILS # (AUTO) 0.3 10^3/uL (0.0-0.1); BASOPHILS % (AUTO) 4.7 %; EOSINOPHILS # (AUTO) 0.3 10^3/uL (0.0-0.7); EOSINOPHILS % (AUTO) 4.9 %; HCT - HEMATOCRIT 40.4 % (37.0-47.0); HGB - HEMOGLOBIN 12.9 g/dL (12.0-16.0); LYMPHOCYTES # (AUTO) 1.8 10^3/uL (1.5-3.5); LYMPHOCYTES % (AUTO) 26.2 %; MEAN CORPUSCULAR HEMOGLOBIN 29.9 pg (27.0-31.0); MEAN CORPUSCULAR HGB CONC 31.9 g/dL (32.0-36.0); MEAN CORPUSCULAR VOLUME 93.5 fL (81.0-99.0); MEAN PLATELET VOLUME 9.8 fL (7.9-10.8); MONOCYTES # (AUTO) 1.1 10^3/uL (0.0-1.0); MONOCYTES % (AUTO) 15.8 %; NEUTROPHILS # (AUTO) 3.2 10^3/uL (1.5-6.6); NEUTROPHILS % (AUTO) 47.5 %; PLT - PLATELET COUNT 255 10^3/uL (130-450); RED BLOOD COUNT 4.32 10^6/uL (4.20-5.40); RED CELL DISTRIBUTION WIDTH 14.6 % (12.0-15.0); WHITE BLOOD COUNT 6.8 x10^3/uL (4.8-10.8)
[2021-06-30 15:50] LABS: ALBUMIN 4.2 g/dL (3.2-5.5); ALBUMIN/GLOBULIN RATIO 1.2 (1.0-2.2); BILIRUBIN,TOTAL 0.8 mg/dL (0.2-1.0); CALCIUM 9.2 mg/dL (8.5-10.3); CREATININE 0.8 mg/dL (0.4-1.0); POTASSIUM 3.9 mmol/L (3.5-5.0); TOTAL PROTEIN 7.6 g/dL (6.7-8.2)
== END 2021-06-30 11:15 | disposition home or self-care (01) ==
LOC: LAB.S 11:14
PROVIDERS: ATTEND Physician Assistant
DX: C92.10 Chronic myeloid leukemia, BCR/ABL-positive, not having achieved remission (principal)
CPT/HCPCS: 36415; 80053; 82150; 83690; 85025

== ENCOUNTER 2021-07-21 10:28 | Outpatient (CLI) | payer MEDICARE, OTHER | END 2021-07-21 10:29 | disposition home or self-care (01) | LOC: DI 10:28 | PROVIDERS: ATTEND Physician Assistant | DX: C92.10 Chronic myeloid leukemia, BCR/ABL-positive, not having achieved remission (principal); I11.9 Hypertensive heart disease without heart failure; I08.0 Rheumatic disorders of both mitral and aortic valves | CPT/HCPCS: 93306 ==

== ENCOUNTER 2021-07-28 08:13 | Outpatient (CLI) | payer MEDICARE, OTHER ==
[2021-07-28 15:17] LABS: BASOPHILS # (AUTO) 0.1 10^3/uL (0.0-0.1); BASOPHILS % (AUTO) 2.6 %; EOSINOPHILS # (AUTO) 0.2 10^3/uL (0.0-0.7); EOSINOPHILS % (AUTO) 6.5 %; HGB - HEMOGLOBIN 9.9 g/dL (12.0-16.0); LYMPHOCYTES # (AUTO) 0.8 10^3/uL (1.5-3.5); LYMPHOCYTES % (AUTO) 23.5 %; MEAN CORPUSCULAR HEMOGLOBIN 30.4 pg (27.0-31.0); MEAN CORPUSCULAR HGB CONC 31.9 g/dL (32.0-36.0); MEAN CORPUSCULAR VOLUME 95.1 fL (81.0-99.0); MEAN PLATELET VOLUME 9.6 fL (7.9-10.8); MONOCYTES # (AUTO) 0.8 10^3/uL (0.0-1.0); MONOCYTES % (AUTO) 23.8 %; NEUTROPHILS # (AUTO) 1.5 10^3/uL (1.5-6.6); NEUTROPHILS % (AUTO) 43.3 %; PLT - PLATELET COUNT 189 10^3/uL (130-450); RED BLOOD COUNT 3.26 10^6/uL (4.20-5.40); RED CELL DISTRIBUTION WIDTH 15.8 % (12.0-15.0); WHITE BLOOD COUNT 3.4 x10^3/uL (4.8-10.8)
[2021-07-28 15:45] LABS: ALBUMIN/GLOBULIN RATIO 1.4 (1.0-2.2); BILIRUBIN,TOTAL 0.6 mg/dL (0.2-1.0); CREATININE 0.8 mg/dL (0.4-1.0); POTASSIUM 3.8 mmol/L (3.5-5.0); TOTAL PROTEIN 6.9 g/dL (6.7-8.2)
== END 2021-07-28 08:14 | disposition home or self-care (01) ==
LOC: LAB.S 08:13
PROVIDERS: ATTEND Internal Medicine Cardiovascular Disease
DX: C92.10 Chronic myeloid leukemia, BCR/ABL-positive, not having achieved remission (principal); I48.0 Paroxysmal atrial fibrillation
CPT/HCPCS: 36415; 80053; 85025

== ENCOUNTER 2021-08-04 14:07 | Outpatient (CLI) | payer MEDICARE, OTHER ==
[2021-08-04 20:07] LABS: BASOPHILS # (AUTO) 0.1 10^3/uL (0.0-0.1); EOSINOPHILS # (AUTO) 0.2 10^3/uL (0.0-0.7); EOSINOPHILS % (AUTO) 5.6 %; HGB - HEMOGLOBIN 9.9 g/dL (12.0-16.0); LYMPHOCYTES # (AUTO) 1.3 10^3/uL (1.5-3.5); LYMPHOCYTES % (AUTO) 33.3 %; MEAN CORPUSCULAR HEMOGLOBIN 30.8 pg (27.0-31.0); MEAN CORPUSCULAR HGB CONC 31.9 g/dL (32.0-36.0); MEAN CORPUSCULAR VOLUME 96.6 fL (81.0-99.0); MONOCYTES # (AUTO) 0.9 10^3/uL (0.0-1.0); NEUTROPHILS # (AUTO) 1.4 10^3/uL (1.5-6.6); NEUTROPHILS % (AUTO) 34.6 %; PLT - PLATELET COUNT 194 10^3/uL (130-450); RED BLOOD COUNT 3.21 10^6/uL (4.20-5.40); RED CELL DISTRIBUTION WIDTH 15.9 % (12.0-15.0)
[2021-08-04 20:23] LABS: ALBUMIN 4.2 g/dL (3.2-5.5); ALBUMIN/GLOBULIN RATIO 1.3 (1.0-2.2); BILIRUBIN,TOTAL 0.6 mg/dL (0.2-1.0); CALCIUM 8.9 mg/dL (8.5-10.3); CREATININE 0.8 mg/dL (0.4-1.0); POTASSIUM 4.2 mmol/L (3.5-5.0); TOTAL PROTEIN 7.4 g/dL (6.7-8.2)
[2021-08-05 10:25] LABS: % IRON SATURATION 10 % (20-50); IRON 46 ug/dL (28-170); TOTAL IRON BINDING CAPACITY 442 ug/dL (250-450); TRANSFERRIN 316 mg/dL (192-382)
[2021-08-05 10:50] LABS: ABSOLUTE RETICS # AUTO 0.08 10^6/uL (0.020-0.110); RED BLOOD COUNT 3.27 10^6/uL (4.20-5.40); RETICULOCYTE COUNT % (AUTO) 2.44 % (0.5-2.3)
== END 2021-08-04 14:08 | disposition home or self-care (01) ==
LOC: LAB.S 14:07
PROVIDERS: ATTEND Internal Medicine Hematology & Oncology
DX: C92.10 Chronic myeloid leukemia, BCR/ABL-positive, not having achieved remission (principal)
CPT/HCPCS: 36415; 80053; 82728; 83540; 84466; 85025; 85045

== ENCOUNTER 2021-08-18 08:36 | Outpatient (CLI) | payer MEDICARE, OTHER ==
[2021-08-18 09:28] LABS: BASOPHILS # (AUTO) 0.1 10^3/uL (0.0-0.1); BASOPHILS % (AUTO) 3.1 %; EOSINOPHILS # (AUTO) 0.1 10^3/uL (0.0-0.7); HCT - HEMATOCRIT 30.9 % (37.0-47.0); HGB - HEMOGLOBIN 10.2 g/dL (12.0-16.0); LYMPHOCYTES # (AUTO) 0.7 10^3/uL (1.5-3.5); LYMPHOCYTES % (AUTO) 26.3 %; MEAN CORPUSCULAR HEMOGLOBIN 30.9 pg (27.0-31.0); MEAN CORPUSCULAR VOLUME 93.6 fL (81.0-99.0); MEAN PLATELET VOLUME 8.6 fL (7.9-10.8); MONOCYTES # (AUTO) 0.7 10^3/uL (0.0-1.0); MONOCYTES % (AUTO) 25.1 %; NEUTROPHILS % (AUTO) 39.7 %; PLT - PLATELET COUNT 187 10^3/uL (130-450); RED CELL DISTRIBUTION WIDTH 14.5 % (12.0-15.0); WHITE BLOOD COUNT 2.6 x10^3/uL (4.8-10.8)
[2021-08-18 09:33] LABS: ALBUMIN 4.2 g/dL (3.2-5.5); ALBUMIN/GLOBULIN RATIO 1.4 (1.0-2.2); BILIRUBIN,TOTAL 0.8 mg/dL (0.2-1.0); CALCIUM 9.1 mg/dL (8.5-10.3); CREATININE 0.7 mg/dL (0.4-1.0); POTASSIUM 4.1 mmol/L (3.5-5.0); TOTAL PROTEIN 7.3 g/dL (6.7-8.2)
[2021-08-18 09:59] LABS: SLIDE REVIEW? Indicated
[2021-08-18 10:58] LABS: PLATELET ESTIMATE, MANUAL NORMAL (130-450,000) (NORMAL); PLATELET MORPHOLOGY NORMAL APPEARANCE (NORMAL); RBC MORPHOLOGY (MULTIPLE) NORMAL APPEARANCE (NORMAL); WBC MORPHOLOGY (MULTIPLE) NORMAL APPEARANCE (NORMAL)
== END 2021-08-18 08:37 | disposition home or self-care (01) ==
LOC: LAB 08:36
PROVIDERS: ATTEND Physician Assistant
DX: C92.10 Chronic myeloid leukemia, BCR/ABL-positive, not having achieved remission (principal); I48.0 Paroxysmal atrial fibrillation
CPT/HCPCS: 36415; 80053; 85025

== ENCOUNTER 2021-09-22 11:09 | Outpatient (CLI) | payer MEDICARE, OTHER ==
[2021-09-22 15:10] LABS: BASOPHILS # (AUTO) 0.1 10^3/uL (0.0-0.1); BASOPHILS % (AUTO) 1.4 %; EOSINOPHILS # (AUTO) 0.2 10^3/uL (0.0-0.7); EOSINOPHILS % (AUTO) 4.3 %; HCT - HEMATOCRIT 32.5 % (37.0-47.0); HGB - HEMOGLOBIN 10.2 g/dL (12.0-16.0); LYMPHOCYTES # (AUTO) 0.9 10^3/uL (1.5-3.5); LYMPHOCYTES % (AUTO) 26.1 %; MEAN CORPUSCULAR HEMOGLOBIN 28.3 pg (27.0-31.0); MEAN CORPUSCULAR HGB CONC 31.4 g/dL (32.0-36.0); MEAN PLATELET VOLUME 9.7 fL (7.9-10.8); MONOCYTES # (AUTO) 0.9 10^3/uL (0.0-1.0); MONOCYTES % (AUTO) 25.5 %; NEUTROPHILS # (AUTO) 1.4 10^3/uL (1.5-6.6); NEUTROPHILS % (AUTO) 41.5 %; PLT - PLATELET COUNT 228 10^3/uL (130-450); RED BLOOD COUNT 3.61 10^6/uL (4.20-5.40); WHITE BLOOD COUNT 3.5 x10^3/uL (4.8-10.8)
[2021-09-22 15:34] LABS: ALBUMIN 4.1 g/dL (3.2-5.5); ALBUMIN/GLOBULIN RATIO 1.3 (1.0-2.2); BILIRUBIN,TOTAL 0.5 mg/dL (0.2-1.0); CALCIUM 9.3 mg/dL (8.5-10.3); CREATININE 0.8 mg/dL (0.4-1.0); POTASSIUM 4.1 mmol/L (3.5-5.0); TOTAL PROTEIN 7.3 g/dL (6.7-8.2)
== END 2021-09-22 11:10 | disposition home or self-care (01) ==
LOC: LAB.S 11:09
PROVIDERS: ATTEND Internal Medicine Hematology & Oncology
DX: C92.10 Chronic myeloid leukemia, BCR/ABL-positive, not having achieved remission (principal); I48.0 Paroxysmal atrial fibrillation
CPT/HCPCS: 36415; 80053; 82565; 85025

== ENCOUNTER 2021-09-29 11:44 | Outpatient (CLI) | payer MEDICARE, OTHER ==
--- NOTE | 2021-09-29 12:20 | XRAY Report ---
PROCEDURE: Chest 2 View X-Ray INDICATIONS: DYSPNEA TECHNIQUE: 2 view(s) of the chest. COMPARISON: CT chest 06/05/2021. Chest x-ray 05/19/2021.. FINDINGS: Surgical changes and devices: None. Lungs and pleura: No pleural effusions or pneumothorax. Reticular-nodular opacities in the lung apic es have almost completely resolved in the interval since prior CT exam. Lungs hyperinflated suggestin g COPD. Nodule medial aspect of the right middle lobe is poorly visualized by plain from radiograph, but does not appear significantly changed compared to prior exams. Mediastinum: Mediastinal contours are normal. Heart size is normal. Bones and chest wall: No suspicious bony abnormalities. Constipation adjacent to the left humeral he ad compatible with chronic calcific tendinitis is unchanged. IMPRESSION: Diminished biapical tree-in-bud opacities. Residual tree-in-bud opacities could represen t recurrent/residual infection or postinflammatory scarring. Reviewed by: Cristine Brandon MD, PhD on 09/29/2021 12:18 PM PST Approved by: Cristine Brandon MD, PhD on 09/29/2021 12:18 PM PST Station ID: [id number]
== END 2021-09-29 11:45 | disposition home or self-care (01) ==
LOC: DI 11:44
PROVIDERS: ATTEND Internal Medicine
DX: R06.00 Dyspnea, unspecified (principal); R91.8 Other nonspecific abnormal finding of lung field

== ENCOUNTER 2021-10-12 13:34 | Outpatient (CLI) | payer MEDICARE, OTHER ==
[2021-10-12 19:45] LABS: ABSOLUTE RETICS # AUTO 0.058 10^6/uL (0.020-0.110); BASOPHILS # (AUTO) 0.3 10^3/uL (0.0-0.1); EOSINOPHILS # (AUTO) 0.2 10^3/uL (0.0-0.7); HCT - HEMATOCRIT 32.7 % (37.0-47.0); HGB - HEMOGLOBIN 10.2 g/dL (12.0-16.0); LYMPHOCYTES # (AUTO) 1.6 10^3/uL (1.5-3.5); LYMPHOCYTES % (AUTO) 29.3 %; MEAN CORPUSCULAR HGB CONC 31.2 g/dL (32.0-36.0); MEAN CORPUSCULAR VOLUME 86.5 fL (81.0-99.0); MEAN PLATELET VOLUME 9.2 fL (7.9-10.8); MONOCYTES # (AUTO) 0.9 10^3/uL (0.0-1.0); MONOCYTES % (AUTO) 17.5 %; NEUTROPHILS # (AUTO) 2.3 10^3/uL (1.5-6.6); NEUTROPHILS % (AUTO) 42.7 %; PLT - PLATELET COUNT 309 10^3/uL (130-450); RED BLOOD COUNT 3.78 10^6/uL (4.20-5.40); RED CELL DISTRIBUTION WIDTH 14.1 % (12.0-15.0); RETICULOCYTE COUNT % (AUTO) 1.52 % (0.5-2.3); WHITE BLOOD COUNT 5.3 x10^3/uL (4.8-10.8)
[2021-10-12 19:56] LABS: ALBUMIN 3.9 g/dL (3.2-5.5); ALBUMIN/GLOBULIN RATIO 1.2 (1.0-2.2); BILIRUBIN,TOTAL 0.4 mg/dL (0.2-1.0); CALCIUM 8.9 mg/dL (8.5-10.3); CREATININE 0.8 mg/dL (0.4-1.0); TOTAL PROTEIN 7.1 g/dL (6.7-8.2)
[2021-10-12 20:16] LABS: FERRITIN 9.8 ng/mL (11.0-306.8)
== END 2021-10-12 13:35 | disposition home or self-care (01) ==
LOC: LAB.S 13:34
PROVIDERS: ATTEND Internal Medicine Hematology & Oncology
DX: C92.10 Chronic myeloid leukemia, BCR/ABL-positive, not having achieved remission (principal)
CPT/HCPCS: 36415; 80053; 82607; 82728; 83615; 83921; 85025; 85045

== ENCOUNTER 2021-11-11 18:45 | Outpatient (CLI) | payer MEDICARE, OTHER | END 2021-11-11 18:46 | disposition short-term general hospital (02) | LOC: EMS 18:45 | DX: R00.2 Palpitations (principal); R06.02 Shortness of breath | CPT/HCPCS: A0425; A0429 ==

== ENCOUNTER 2021-11-18 11:44 | Outpatient (CLI) | payer MEDICARE, OTHER ==
[2021-11-18 12:17] LABS: ABSOLUTE RETICS # AUTO 0.059 10^6/uL (0.020-0.110); BASOPHILS # (AUTO) 0.2 10^3/uL (0.0-0.1); BASOPHILS % (AUTO) 2.9 %; EOSINOPHILS # (AUTO) 0.3 10^3/uL (0.0-0.7); HCT - HEMATOCRIT 32.9 % (37.0-47.0); HGB - HEMOGLOBIN 10.5 g/dL (12.0-16.0); LYMPHOCYTES # (AUTO) 1.2 10^3/uL (1.5-3.5); LYMPHOCYTES % (AUTO) 23.4 %; MEAN CORPUSCULAR HEMOGLOBIN 26.5 pg (27.0-31.0); MEAN CORPUSCULAR HGB CONC 31.9 g/dL (32.0-36.0); MEAN CORPUSCULAR VOLUME 83.1 fL (81.0-99.0); MEAN PLATELET VOLUME 9.1 fL (7.9-10.8); MONOCYTES # (AUTO) 1.1 10^3/uL (0.0-1.0); MONOCYTES % (AUTO) 20.5 %; NEUTROPHILS # (AUTO) 2.5 10^3/uL (1.5-6.6); NEUTROPHILS % (AUTO) 47.4 %; PLT - PLATELET COUNT 215 10^3/uL (130-450); RED BLOOD COUNT 3.96 10^6/uL (4.20-5.40); RED CELL DISTRIBUTION WIDTH 17.4 % (12.0-15.0); RETICULOCYTE COUNT % (AUTO) 1.48 % (0.5-2.3); WHITE BLOOD COUNT 5.2 x10^3/uL (4.8-10.8)
[2021-11-18 12:27] LABS: ALBUMIN 4.4 g/dL (3.2-5.5); ALBUMIN/GLOBULIN RATIO 1.3 (1.0-2.2); BILIRUBIN,TOTAL 0.5 mg/dL (0.2-1.0); CALCIUM 9.2 mg/dL (8.5-10.3); CREATININE 0.8 mg/dL (0.4-1.0); POTASSIUM 4.2 mmol/L (3.5-5.0); TOTAL PROTEIN 7.8 g/dL (6.7-8.2)
== END 2021-11-18 11:45 | disposition home or self-care (01) ==
LOC: LAB 11:44
PROVIDERS: ATTEND Internal Medicine Hematology & Oncology
DX: C92.10 Chronic myeloid leukemia, BCR/ABL-positive, not having achieved remission (principal); I48.0 Paroxysmal atrial fibrillation
CPT/HCPCS: 36415; 80053; 82607; 82728; 83615; 83921; 85025; 85045

== ENCOUNTER 2021-12-07 10:20 | Outpatient (CLI) | payer MEDICARE, OTHER ==
[2021-12-07 15:21] LABS: BASOPHILS # (AUTO) 0.1 10^3/uL (0.0-0.1); BASOPHILS % (AUTO) 2.2 %; EOSINOPHILS # (AUTO) 0.2 10^3/uL (0.0-0.7); EOSINOPHILS % (AUTO) 3.6 %; HCT - HEMATOCRIT 30.9 % (37.0-47.0); HGB - HEMOGLOBIN 9.7 g/dL (12.0-16.0); LYMPHOCYTES # (AUTO) 0.8 10^3/uL (1.5-3.5); LYMPHOCYTES % (AUTO) 19.7 %; MEAN CORPUSCULAR HEMOGLOBIN 26.1 pg (27.0-31.0); MEAN CORPUSCULAR HGB CONC 31.4 g/dL (32.0-36.0); MEAN CORPUSCULAR VOLUME 83.3 fL (81.0-99.0); MEAN PLATELET VOLUME 9.7 fL (7.9-10.8); MONOCYTES # (AUTO) 0.9 10^3/uL (0.0-1.0); MONOCYTES % (AUTO) 22.1 %; NEUTROPHILS # (AUTO) 2.1 10^3/uL (1.5-6.6); NEUTROPHILS % (AUTO) 51.9 %; PLT - PLATELET COUNT 214 10^3/uL (130-450); RED BLOOD COUNT 3.71 10^6/uL (4.20-5.40); RED CELL DISTRIBUTION WIDTH 18.3 % (12.0-15.0); WHITE BLOOD COUNT 4.1 x10^3/uL (4.8-10.8)
[2021-12-07 15:56] LABS: CREATININE 0.7 mg/dL (0.4-1.0)
[2021-12-07 17:15] LABS: ALBUMIN 4.1 g/dL (3.2-5.5); ALBUMIN/GLOBULIN RATIO 1.3 (1.0-2.2); BILIRUBIN,TOTAL 0.4 mg/dL (0.2-1.0); CALCIUM 9.1 mg/dL (8.5-10.3); CREATININE 0.7 mg/dL (0.4-1.0); POTASSIUM 4.1 mmol/L (3.5-5.0); TOTAL PROTEIN 7.2 g/dL (6.7-8.2)
[2021-12-07 17:38] LABS: FERRITIN 13.4 ng/mL (11.0-306.8)
[2021-12-08 10:27] LABS: ABSOLUTE RETICS # AUTO 0.046 10^6/uL (0.020-0.110); RED BLOOD COUNT 3.76 10^6/uL (4.20-5.40); RETICULOCYTE COUNT % (AUTO) 1.23 % (0.5-2.3)
== END 2021-12-07 10:21 | disposition home or self-care (01) ==
LOC: LAB.S 10:20
PROVIDERS: ATTEND Internal Medicine Hematology & Oncology
DX: C92.10 Chronic myeloid leukemia, BCR/ABL-positive, not having achieved remission (principal); I48.0 Paroxysmal atrial fibrillation
CPT/HCPCS: 36415; 80053; 82565; 82607; 82728; 83615; 83921; 85025; 85045

== ENCOUNTER 2021-12-14 10:14 | Day surgery (SDC) | payer MEDICARE, OTHER ==
[2021-12-14] MEDS ORDERED: LACTATED RINGERS 1,000 ML IV ONE ×2 (10:16→11:37)
[2021-12-14] MEDS ORDERED: PROPOFOL 500 MG/50 ML 0 MG/0 ML VIAL ONE (10:42)
--- NOTE | 2021-12-14 10:48 | ANESTHESIA ---
Pre-Anesthesia VS, & Labs - Diagnosis hx of colon polyps - Procedure colonoscopy Vital Signs: Temp Pulse Resp BP Pulse Ox 36.8 C 58 L 16 179/92 H 98 12/14/21 10:30 12/14/21 10:30 12/14/21 10:30 12/14/21 10:30 12/14/21 10:30 Height: 5 ft 2 in Weight (kg): 56.1 kg Body Mass Index: 22.6 BMI Classification: Healthy weight - NPO >8 hours - Is Patient ?: No - Lab Results Lab results reviewed: Yes Home Medications and Allergies Home Medications: Ambulatory Orders Acetaminophen/Cod 300/30 [Tylenol #3] 1 each PO DAILY PRN 12/06/21 Fluticasone 220 Mcg [Flovent] 2 puffs INH BID 12/06/21 Sotalol HCl [Betapace AF] 120 mg PO BID 12/06/21 diltiaZEM CD [Cardizem Cd] 180 mg PO DAILY 12/06/21 Atorvastatin Calcium 10 mg PO DAILY 04/24/17 Bimatoprost [Lumigan] 1 drp OP DAILY PM 04/24/17 Rivaroxaban [Xarelto] 15 mg PO DAILY 04/24/17 Timolol Maleate/Pf [Timoptic 0.25% Ocudose Drop] 1 drp OP BID 04/24/17 Dasatinib [Sprycel] 40 tab PO DAILY 02/08/21 Acetaminophen/Cod 300/30 [Tylenol #3] 1 each PO DAILY PRN 12/06/21 Fluticasone 220 Mcg [Flovent] 2 puffs INH BID 12/06/21 Sotalol HCl [Betapace AF] 120 mg PO BID 12/06/21 diltiaZEM CD [Cardizem Cd] 180 mg PO DAILY 12/06/21 Allergies/Adverse Reactions: Allergies Allergy/AdvReac Type Severity Reaction Status Date / Time morphine Allergy Intermediate Nausea Verified 05/19/21 12:01 Anes History & Medical History - Anesthetic History Anesthesia Complications: reports: No previous complications Family history of Anesthesia Complications: Denies Family history of Malignant Hyperthermia: Denies - Medical History Cardiovascular: reports: Hypertension, High cholesterol, Atrial fibrillation Pulmonary: reports: Asthma Gastrointestinal: reports: Colon polyps Urinary: reports: None Musculoskeletal: reports: Chronic back pain Endocrine/Autoimmune: reports: None Blood Disorders: reports: None Skin: reports: None Smoking Status: Never smoker - Surgical History General: reports: 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, Colonoscopy Eyes Ears Nose Throat (EENT): reports: Cataracts, Tonsil/Adenoidectomy Gynecologic: reports: Oophrectomy Exam General: Alert, Oriented x3, Cooperative, No acute distress Dental: WNL Mouth Openin Fingerbreadth Neck Mobility: Normal Mallampati classification: II Plan Anesthesia Type: General, Total IV Consent for Procedure(s) Verified and Reviewed: Yes Code Status: Attempt Resuscitation ASA classification: 3-Severe systemic disease Is this case an emergency?: No
[2021-12-14] MEDS ORDERED: PROPOFOL 500 MG/50 ML 500 MG/50 ML VIAL ONE (11:05)
[2021-12-14 12:33] VITALS: BP 146/87
--- NOTE | 2021-12-14 13:16 | ANESTHESIA POST OP EVALUATION ---
Anesthesia Post Eval - Post Anesthesia Eval Vitals: Last Vital Signs Temp 36.0 C L 12/14/21 12:15 Pulse 60 12/14/21 12:15 Resp 16 12/14/21 12:15 BP 146/87 H 12/14/21 12:15 Pulse Ox 95 12/14/21 12:15 CV Function Including HR & BP: Stable Pain Control: Satisfactory Nausea & Vomiting: Negative Mental Status: Baseline Respiratory Status: Airway Patent Hydration Status: Satisfactory Anesthesia Complications: None
== END 2021-12-14 10:15 | disposition home or self-care (01) ==
LOC: SDS 10:14
PROVIDERS: ATTEND Surgery
PROC: 0DBM8ZZ Excision of Descending Colon, Via Natural or Artificial Opening Endoscopic (ICD-10-PCS; principal; 2021-12-14 11:15)
DX: Z12.11 Encounter for screening for malignant neoplasm of colon (principal); D12.4 Benign neoplasm of descending colon; K64.8 Other hemorrhoids; J45.909 Unspecified asthma, uncomplicated; I48.91 Unspecified atrial fibrillation; Z79.01 Long term (current) use of anticoagulants; C92.10 Chronic myeloid leukemia, BCR/ABL-positive, not having achieved remission; I10 Essential (primary) hypertension
CPT/HCPCS: 45380; J7120

== ENCOUNTER 2022-02-23 08:23 | Outpatient (CLI) | payer MEDICARE, OTHER ==
[2022-02-23 09:06] LABS: ALBUMIN 4.3 g/dL (3.2-5.5); ALBUMIN/GLOBULIN RATIO 1.2 (1.0-2.2); BILIRUBIN,TOTAL 0.5 mg/dL (0.2-1.0); CALCIUM 9.6 mg/dL (8.5-10.3); CREATININE 0.8 mg/dL (0.4-1.0); POTASSIUM 4.2 mmol/L (3.5-5.0); TOTAL PROTEIN 7.8 g/dL (6.7-8.2)
[2022-02-23 09:07] LABS: ABSOLUTE RETICS # AUTO 0.041 10^6/uL (0.020-0.110); BASOPHILS # (AUTO) 0.1 10^3/uL (0.0-0.1); BASOPHILS % (AUTO) 2.9 %; EOSINOPHILS # (AUTO) 0.3 10^3/uL (0.0-0.7); EOSINOPHILS % (AUTO) 10.4 %; HGB - HEMOGLOBIN 10.2 g/dL (12.0-16.0); LYMPHOCYTES % (AUTO) 34.9 %; MEAN CORPUSCULAR HEMOGLOBIN 27.6 pg (27.0-31.0); MEAN CORPUSCULAR HGB CONC 31.9 g/dL (32.0-36.0); MEAN CORPUSCULAR VOLUME 86.7 fL (81.0-99.0); MEAN PLATELET VOLUME 9.1 fL (7.9-10.8); MONOCYTES # (AUTO) 0.7 10^3/uL (0.0-1.0); MONOCYTES % (AUTO) 25.2 %; NEUTROPHILS # (AUTO) 0.7 10^3/uL (1.5-6.6); NEUTROPHILS % (AUTO) 25.5 %; PLT - PLATELET COUNT 205 10^3/uL (130-450); RED BLOOD COUNT 3.69 10^6/uL (4.20-5.40); RED CELL DISTRIBUTION WIDTH 16.4 % (12.0-15.0); WHITE BLOOD COUNT 2.8 x10^3/uL (4.8-10.8)
[2022-02-23 09:12] LABS: SLIDE REVIEW? Indicated
[2022-02-23 09:28] LABS: FERRITIN 16.3 ng/mL (11.0-306.8); PLATELET ESTIMATE, MANUAL NORMAL (130-450,000) (NORMAL); PLATELET MORPHOLOGY NORMAL APPEARANCE (NORMAL); RBC MORPHOLOGY (MULTIPLE) NORMAL APPEARANCE (NORMAL)
== END 2022-02-23 08:24 | disposition home or self-care (01) ==
LOC: LAB 08:23
PROVIDERS: ATTEND Internal Medicine Hematology & Oncology
DX: C92.10 Chronic myeloid leukemia, BCR/ABL-positive, not having achieved remission (principal); I48.0 Paroxysmal atrial fibrillation
CPT/HCPCS: 36415; 80053; 82607; 82728; 83615; 83921; 85025; 85045

== ENCOUNTER 2022-02-23 08:52 | Outpatient (CLI) | payer MEDICARE, OTHER | END 2022-02-23 08:53 | disposition home or self-care (01) | LOC: RT 08:52 | PROVIDERS: ATTEND Internal Medicine Cardiovascular Disease | DX: I48.0 Paroxysmal atrial fibrillation (principal); C92.10 Chronic myeloid leukemia, BCR/ABL-positive, not having achieved remission | CPT/HCPCS: 36415; 80053; 82607; 82728; 83615; 83921; 85025; 85045; 93005 ==

== ENCOUNTER 2022-03-18 08:23 | Outpatient (CLI) | payer MEDICARE, OTHER ==
[2022-03-18 15:09] LABS: ABSOLUTE RETICS # AUTO 0.063 10^6/uL (0.020-0.110); BASOPHILS % (AUTO) 1.7 %; EOSINOPHILS % (AUTO) 7.1 %; HGB - HEMOGLOBIN 10.7 g/dL (12.0-16.0); LYMPHOCYTES % (AUTO) 28.8 %; MEAN CORPUSCULAR HGB CONC 32.4 g/dL (32.0-36.0); MEAN CORPUSCULAR VOLUME 86.4 fL (81.0-99.0); MEAN PLATELET VOLUME 9.8 fL (7.9-10.8); MONOCYTES % (AUTO) 26.8 %; NEUTROPHILS % (AUTO) 34.6 %; PLT - PLATELET COUNT 254 10^3/uL (130-450); RED BLOOD COUNT 3.82 10^6/uL (4.20-5.40); RETICULOCYTE COUNT % (AUTO) 1.65 % (0.5-2.3)
[2022-03-18 15:37] LABS: ABNORMAL LYMPHS % (MANUAL) 0 %; BAND NEUTROPHILS % (MANUAL) 0 %
[2022-03-18 15:43] LABS: ALBUMIN 4.2 g/dL (3.2-5.5); ALBUMIN/GLOBULIN RATIO 1.3 (1.0-2.2); BILIRUBIN,TOTAL 0.6 mg/dL (0.2-1.0); CALCIUM 9.9 mg/dL (8.5-10.3); CREATININE 0.8 mg/dL (0.4-1.0); POTASSIUM 4.7 mmol/L (3.5-5.0); TOTAL PROTEIN 7.4 g/dL (6.7-8.2)
[2022-03-18 15:54] LABS: EOSINOPHILS # (MANUAL) 0.3 10^3/uL (0-0.7); LYMPHOCYTES # (MANUAL) 0.9 10^3/uL (1.5-3.5); LYMPHOCYTES % (MANUAL) 30 %; MONOCYTES # (MANUAL) 0.5 10^3/uL (0.0-1.0); NEUTROPHILS # (MANUAL) 1.3 10^3/uL (1.5-6.6); PLATELET ESTIMATE, MANUAL NORMAL (130-450,000) (NORMAL); PLATELET MORPHOLOGY NORMAL APPEARANCE (NORMAL); RBC MORPHOLOGY (MULTIPLE) NORMAL APPEARANCE (NORMAL)
[2022-03-18 15:55] LABS: DIFFERENTIAL COMMENT MANUAL DIFFERENTIAL; FERRITIN 12.3 ng/mL (11.0-306.8); WBC MORPHOLOGY (MULTIPLE) NORMAL APPEARANCE (NORMAL)
[2022-03-18 16:05] LABS: CREATININE 0.8 mg/dL (0.4-1.0)
== END 2022-03-18 08:24 | disposition home or self-care (01) ==
LOC: LAB.S 08:23
PROVIDERS: ATTEND Internal Medicine Hematology & Oncology
DX: C92.10 Chronic myeloid leukemia, BCR/ABL-positive, not having achieved remission (principal); I48.0 Paroxysmal atrial fibrillation
CPT/HCPCS: 36415; 80053; 82565; 82607; 82728; 83615; 83921; 85025; 85045

== ENCOUNTER 2022-03-29 08:22 | Outpatient (CLI) | payer MEDICARE, OTHER ==
[2022-03-29 14:20] LABS: ABSOLUTE RETICS # AUTO 0.084 10^6/uL (0.020-0.110); BASOPHILS # (AUTO) 0.1 10^3/uL (0.0-0.1); EOSINOPHILS # (AUTO) 0.2 10^3/uL (0.0-0.7); EOSINOPHILS % (AUTO) 4.8 %; HGB - HEMOGLOBIN 10.5 g/dL (12.0-16.0); LYMPHOCYTES # (AUTO) 1.1 10^3/uL (1.5-3.5); LYMPHOCYTES % (AUTO) 32.8 %; MEAN CORPUSCULAR HEMOGLOBIN 27.3 pg (27.0-31.0); MEAN CORPUSCULAR HGB CONC 31.8 g/dL (32.0-36.0); MEAN CORPUSCULAR VOLUME 85.7 fL (81.0-99.0); MEAN PLATELET VOLUME 9.4 fL (7.9-10.8); MONOCYTES # (AUTO) 0.7 10^3/uL (0.0-1.0); MONOCYTES % (AUTO) 21.8 %; NEUTROPHILS # (AUTO) 1.2 10^3/uL (1.5-6.6); NEUTROPHILS % (AUTO) 36.4 %; PLT - PLATELET COUNT 282 10^3/uL (130-450); RED BLOOD COUNT 3.85 10^6/uL (4.20-5.40); RED CELL DISTRIBUTION WIDTH 15.4 % (12.0-15.0); RETICULOCYTE COUNT % (AUTO) 2.18 % (0.5-2.3); WHITE BLOOD COUNT 3.4 x10^3/uL (4.8-10.8)
[2022-03-29 14:39] LABS: ALBUMIN 4.2 g/dL (3.2-5.5); ALBUMIN/GLOBULIN RATIO 1.5 (1.0-2.2); BILIRUBIN,TOTAL 0.4 mg/dL (0.2-1.0); CALCIUM 9.7 mg/dL (8.5-10.3); CREATININE 0.8 mg/dL (0.4-1.0); POTASSIUM 4.3 mmol/L (3.5-5.0)
== END 2022-03-29 08:23 | disposition home or self-care (01) ==
LOC: LAB.S 08:22
PROVIDERS: ATTEND Internal Medicine Hematology & Oncology
DX: C92.10 Chronic myeloid leukemia, BCR/ABL-positive, not having achieved remission (principal); I48.0 Paroxysmal atrial fibrillation
CPT/HCPCS: 36415; 80053; 82565; 82607; 82728; 83615; 83921; 85025; 85045

== ENCOUNTER 2022-04-05 08:18 | Outpatient (CLI) | payer MEDICARE, OTHER ==
[2022-04-05 15:19] LABS: ALBUMIN 4.1 g/dL (3.2-5.5); ALBUMIN/GLOBULIN RATIO 1.3 (1.0-2.2); BILIRUBIN,TOTAL 0.6 mg/dL (0.2-1.0); CALCIUM 9.8 mg/dL (8.5-10.3); CREATININE 0.8 mg/dL (0.4-1.0); POTASSIUM 4.4 mmol/L (3.5-5.0); TOTAL PROTEIN 7.2 g/dL (6.7-8.2)
[2022-04-05 15:41] LABS: FERRITIN 11.7 ng/mL (11.0-306.8)
[2022-04-05 16:15] LABS: ABSOLUTE RETICS # AUTO 0.065 10^6/uL (0.020-0.110); BASOPHILS % (AUTO) 5.1 %; EOSINOPHILS % (AUTO) 6.4 %; HCT - HEMATOCRIT 34.6 % (37.0-47.0); HGB - HEMOGLOBIN 11.1 g/dL (12.0-16.0); LYMPHOCYTES % (AUTO) 34.9 %; MEAN CORPUSCULAR HEMOGLOBIN 27.1 pg (27.0-31.0); MEAN CORPUSCULAR HGB CONC 32.1 g/dL (32.0-36.0); MEAN CORPUSCULAR VOLUME 84.6 fL (81.0-99.0); MEAN PLATELET VOLUME 9.6 fL (7.9-10.8); MONOCYTES % (AUTO) 21.7 %; NEUTROPHILS % (AUTO) 30.9 %; PLT - PLATELET COUNT 280 10^3/uL (130-450); RED BLOOD COUNT 4.09 10^6/uL (4.20-5.40); RED CELL DISTRIBUTION WIDTH 15.2 % (12.0-15.0)
[2022-04-05 16:18] LABS: ABNORMAL LYMPHS % (MANUAL) 0 %
[2022-04-05 16:48] LABS: BAND NEUTROPHILS % (MANUAL) 2 %; BASOPHILS # (MANUAL) 0.2 10^3/uL (0-0.1); BASOPHILS % (MANUAL) 5 %; EOSINOPHILS # (MANUAL) 0.2 10^3/uL (0-0.7); LYMPHOCYTES # (MANUAL) 1.2 10^3/uL (1.5-3.5); LYMPHOCYTES % (MANUAL) 39 %; METAMYELOCYTES % (MANUAL) 2 %; MONOCYTES # (MANUAL) 0.6 10^3/uL (0.0-1.0); MYELOCYTES % (MANUAL) 2 %; NEUTROPHILS # (MANUAL) 0.8 10^3/uL (1.5-6.6)
[2022-04-05 16:51] LABS: DIFFERENTIAL COMMENT MANUAL DIFFERENTIAL; PLATELET ESTIMATE, MANUAL NORMAL (130-450,000) (NORMAL); PLATELET MORPHOLOGY NORMAL APPEARANCE (NORMAL); RBC MORPHOLOGY (MULTIPLE) NORMAL APPEARANCE (NORMAL); WBC MORPHOLOGY (MULTIPLE) NORMAL APPEARANCE (NORMAL)
== END 2022-04-05 08:19 | disposition home or self-care (01) ==
LOC: LAB.S 08:18
PROVIDERS: ATTEND Internal Medicine Hematology & Oncology
DX: C92.10 Chronic myeloid leukemia, BCR/ABL-positive, not having achieved remission (principal); I48.0 Paroxysmal atrial fibrillation
CPT/HCPCS: 36415; 80053; 82565; 82607; 82728; 83615; 83921; 85025; 85045

== ENCOUNTER 2022-05-03 08:20 | Outpatient (CLI) | payer MEDICARE, OTHER ==
[2022-05-03 08:40] LABS: ABSOLUTE RETICS # AUTO 0.097 10^6/uL (0.020-0.110); BASOPHILS # (AUTO) 0.3 10^3/uL (0.0-0.1); BASOPHILS % (AUTO) 6.7 %; EOSINOPHILS # (AUTO) 0.3 10^3/uL (0.0-0.7); EOSINOPHILS % (AUTO) 7.6 %; HCT - HEMATOCRIT 33.5 % (37.0-47.0); HGB - HEMOGLOBIN 10.8 g/dL (12.0-16.0); LYMPHOCYTES # (AUTO) 1.2 10^3/uL (1.5-3.5); LYMPHOCYTES % (AUTO) 26.8 %; MEAN CORPUSCULAR HEMOGLOBIN 27.4 pg (27.0-31.0); MEAN CORPUSCULAR HGB CONC 32.2 g/dL (32.0-36.0); MEAN PLATELET VOLUME 9.2 fL (7.9-10.8); MONOCYTES # (AUTO) 0.7 10^3/uL (0.0-1.0); MONOCYTES % (AUTO) 15.8 %; NEUTROPHILS # (AUTO) 1.8 10^3/uL (1.5-6.6); NEUTROPHILS % (AUTO) 41.1 %; PLT - PLATELET COUNT 276 10^3/uL (130-450); RED BLOOD COUNT 3.94 10^6/uL (4.20-5.40); RED CELL DISTRIBUTION WIDTH 17.8 % (12.0-15.0); RETICULOCYTE COUNT % (AUTO) 2.46 % (0.5-2.3); WHITE BLOOD COUNT 4.5 x10^3/uL (4.8-10.8)
[2022-05-03 08:52] LABS: ALBUMIN 4.2 g/dL (3.2-5.5); ALBUMIN/GLOBULIN RATIO 1.4 (1.0-2.2); BILIRUBIN,TOTAL 0.6 mg/dL (0.2-1.0); CREATININE 0.7 mg/dL (0.4-1.0); TOTAL PROTEIN 7.3 g/dL (6.7-8.2)
[2022-05-03 09:06] LABS: CALCIUM 9.7 mg/dL (8.5-10.3); POTASSIUM 4.3 mmol/L (3.5-5.0)
[2022-05-03 09:14] LABS: FERRITIN 22.4 ng/mL (11.0-306.8)
== END 2022-05-03 08:21 | disposition home or self-care (01) ==
LOC: LAB 08:20
PROVIDERS: ATTEND Internal Medicine Hematology & Oncology
DX: C92.10 Chronic myeloid leukemia, BCR/ABL-positive, not having achieved remission (principal)
CPT/HCPCS: 36415; 80053; 82607; 82728; 83615; 83921; 85025; 85045

== ENCOUNTER 2022-05-18 11:09 | Outpatient (CLI) | payer MEDICARE, OTHER ==
[2022-05-18 14:13] LABS: ABSOLUTE RETICS # AUTO 0.073 10^6/uL (0.020-0.110); BASOPHILS # (AUTO) 0.2 10^3/uL (0.0-0.1); BASOPHILS % (AUTO) 3.6 %; EOSINOPHILS # (AUTO) 0.4 10^3/uL (0.0-0.7); EOSINOPHILS % (AUTO) 7.8 %; HCT - HEMATOCRIT 34.9 % (37.0-47.0); HGB - HEMOGLOBIN 11.4 g/dL (12.0-16.0); LYMPHOCYTES # (AUTO) 1.4 10^3/uL (1.5-3.5); LYMPHOCYTES % (AUTO) 25.7 %; MEAN CORPUSCULAR HEMOGLOBIN 28.6 pg (27.0-31.0); MEAN CORPUSCULAR HGB CONC 32.7 g/dL (32.0-36.0); MEAN CORPUSCULAR VOLUME 87.7 fL (81.0-99.0); MEAN PLATELET VOLUME 10.5 fL (7.9-10.8); MONOCYTES # (AUTO) 1.1 10^3/uL (0.0-1.0); MONOCYTES % (AUTO) 21.1 %; NEUTROPHILS # (AUTO) 2.2 10^3/uL (1.5-6.6); PLT - PLATELET COUNT 193 10^3/uL (130-450); RED BLOOD COUNT 3.98 10^6/uL (4.20-5.40); RETICULOCYTE COUNT % (AUTO) 1.83 % (0.5-2.3); WHITE BLOOD COUNT 5.3 x10^3/uL (4.8-10.8)
[2022-05-18 14:27] LABS: ALBUMIN 4.3 g/dL (3.2-5.5); ALBUMIN/GLOBULIN RATIO 1.4 (1.0-2.2); BILIRUBIN,TOTAL 0.6 mg/dL (0.2-1.0); CALCIUM 9.7 mg/dL (8.5-10.3); CREATININE 0.7 mg/dL (0.4-1.0); POTASSIUM 4.3 mmol/L (3.5-5.0); TOTAL PROTEIN 7.3 g/dL (6.7-8.2)
[2022-05-18 14:46] LABS: FERRITIN 27.3 ng/mL (11.0-306.8)
== END 2022-05-18 11:10 | disposition home or self-care (01) ==
LOC: LAB.S 11:09
PROVIDERS: ATTEND Internal Medicine Cardiovascular Disease
DX: C92.10 Chronic myeloid leukemia, BCR/ABL-positive, not having achieved remission (principal); I48.0 Paroxysmal atrial fibrillation
CPT/HCPCS: 36415; 80053; 82565; 82607; 82728; 83615; 83921; 85025; 85045

== ENCOUNTER 2022-06-08 08:42 | Outpatient (CLI) | payer MEDICARE, OTHER ==
[2022-06-08 14:51] LABS: ABSOLUTE RETICS # AUTO 0.061 10^6/uL (0.020-0.110); BASOPHILS # (AUTO) 0.2 10^3/uL (0.0-0.1); EOSINOPHILS # (AUTO) 0.3 10^3/uL (0.0-0.7); EOSINOPHILS % (AUTO) 6.7 %; HCT - HEMATOCRIT 35.9 % (37.0-47.0); HGB - HEMOGLOBIN 11.6 g/dL (12.0-16.0); LYMPHOCYTES # (AUTO) 1.1 10^3/uL (1.5-3.5); LYMPHOCYTES % (AUTO) 26.1 %; MEAN CORPUSCULAR HEMOGLOBIN 29.1 pg (27.0-31.0); MEAN CORPUSCULAR HGB CONC 32.3 g/dL (32.0-36.0); MONOCYTES # (AUTO) 0.9 10^3/uL (0.0-1.0); MONOCYTES % (AUTO) 22.9 %; NEUTROPHILS # (AUTO) 1.6 10^3/uL (1.5-6.6); NEUTROPHILS % (AUTO) 39.3 %; PLT - PLATELET COUNT 239 10^3/uL (130-450); RED BLOOD COUNT 3.99 10^6/uL (4.20-5.40); RED CELL DISTRIBUTION WIDTH 20.1 % (12.0-15.0); RETICULOCYTE COUNT % (AUTO) 1.54 % (0.5-2.3)
[2022-06-08 14:53] LABS: FERRITIN 20.1 ng/mL (11.0-306.8)
[2022-06-08 15:15] LABS: ALBUMIN 4.2 g/dL (3.2-5.5); ALBUMIN/GLOBULIN RATIO 1.4 (1.0-2.2); BILIRUBIN,TOTAL 0.7 mg/dL (0.2-1.0); CALCIUM 9.6 mg/dL (8.5-10.3); CREATININE 0.7 mg/dL (0.4-1.0); POTASSIUM 4.6 mmol/L (3.5-5.0); TOTAL PROTEIN 7.3 g/dL (6.7-8.2)
[2022-06-08 16:27] LABS: DIFFERENTIAL COMMENT MANUAL=AUTO DIFF; PLATELET ESTIMATE, MANUAL NORMAL (130-450,000) (NORMAL); PLATELET MORPHOLOGY NORMAL APPEARANCE (NORMAL); RBC MORPHOLOGY (MULTIPLE) 3+ ANISOCYTOSIS (NORMAL); WBC MORPHOLOGY (MULTIPLE) NORMAL APPEARANCE (NORMAL)
== END 2022-06-08 08:43 | disposition home or self-care (01) ==
LOC: LAB.S 08:42
PROVIDERS: ATTEND Internal Medicine Cardiovascular Disease
DX: C92.10 Chronic myeloid leukemia, BCR/ABL-positive, not having achieved remission (principal); I48.0 Paroxysmal atrial fibrillation
CPT/HCPCS: 36415; 80053; 82565; 82607; 82728; 83615; 83921; 85025; 85045

== ENCOUNTER 2022-07-06 08:27 | Outpatient (CLI) | payer MEDICARE, OTHER ==
[2022-07-06 14:59] LABS: ABSOLUTE RETICS # AUTO 0.051 10^6/uL (0.020-0.110); BASOPHILS # (AUTO) 0.1 10^3/uL (0.0-0.1); BASOPHILS % (AUTO) 2.6 %; EOSINOPHILS # (AUTO) 0.3 10^3/uL (0.0-0.7); EOSINOPHILS % (AUTO) 6.8 %; HCT - HEMATOCRIT 37.2 % (37.0-47.0); HGB - HEMOGLOBIN 11.8 g/dL (12.0-16.0); LYMPHOCYTES # (AUTO) 1.1 10^3/uL (1.5-3.5); LYMPHOCYTES % (AUTO) 29.2 %; MEAN CORPUSCULAR HEMOGLOBIN 29.9 pg (27.0-31.0); MEAN CORPUSCULAR HGB CONC 31.7 g/dL (32.0-36.0); MEAN CORPUSCULAR VOLUME 94.2 fL (81.0-99.0); MONOCYTES # (AUTO) 0.9 10^3/uL (0.0-1.0); MONOCYTES % (AUTO) 22.2 %; NEUTROPHILS # (AUTO) 1.5 10^3/uL (1.5-6.6); NEUTROPHILS % (AUTO) 38.4 %; PLT - PLATELET COUNT 241 10^3/uL (130-450); RED BLOOD COUNT 3.95 10^6/uL (4.20-5.40); RED CELL DISTRIBUTION WIDTH 17.3 % (12.0-15.0); RETICULOCYTE COUNT % (AUTO) 1.29 % (0.5-2.3); WHITE BLOOD COUNT 3.8 x10^3/uL (4.8-10.8)
[2022-07-06 15:34] LABS: ALBUMIN 4.3 g/dL (3.2-5.5); ALBUMIN/GLOBULIN RATIO 1.5 (1.0-2.2); BILIRUBIN,TOTAL 0.5 mg/dL (0.2-1.0); CREATININE 0.7 mg/dL (0.4-1.0); POTASSIUM 4.5 mmol/L (3.5-5.0); TOTAL PROTEIN 7.1 g/dL (6.7-8.2)
[2022-07-06 15:46] LABS: FERRITIN 22.2 ng/mL (11.0-306.8)
== END 2022-07-06 08:28 | disposition home or self-care (01) ==
LOC: LAB.S 08:27
PROVIDERS: ATTEND Internal Medicine Hematology & Oncology
DX: C92.10 Chronic myeloid leukemia, BCR/ABL-positive, not having achieved remission (principal); I48.0 Paroxysmal atrial fibrillation
CPT/HCPCS: 36415; 80053; 82565; 82607; 82728; 83615; 83921; 85025; 85045

== ENCOUNTER 2022-07-25 10:13 | Outpatient (CLI) | payer MEDICARE, OTHER ==
[2022-07-25 10:34] LABS: ABSOLUTE RETICS # AUTO 0.059 10^6/uL (0.020-0.110); BASOPHILS # (AUTO) 0.1 10^3/uL (0.0-0.1); BASOPHILS % (AUTO) 1.6 %; EOSINOPHILS # (AUTO) 0.3 10^3/uL (0.0-0.7); EOSINOPHILS % (AUTO) 5.1 %; HCT - HEMATOCRIT 36.2 % (37.0-47.0); HGB - HEMOGLOBIN 11.8 g/dL (12.0-16.0); LYMPHOCYTES # (AUTO) 1.3 10^3/uL (1.5-3.5); LYMPHOCYTES % (AUTO) 19.9 %; MEAN CORPUSCULAR HEMOGLOBIN 30.3 pg (27.0-31.0); MEAN CORPUSCULAR HGB CONC 32.6 g/dL (32.0-36.0); MEAN CORPUSCULAR VOLUME 93.1 fL (81.0-99.0); MEAN PLATELET VOLUME 8.4 fL (7.9-10.8); MONOCYTES # (AUTO) 1.3 10^3/uL (0.0-1.0); MONOCYTES % (AUTO) 20.8 %; NEUTROPHILS # (AUTO) 3.3 10^3/uL (1.5-6.6); NEUTROPHILS % (AUTO) 51.5 %; PLT - PLATELET COUNT 210 10^3/uL (130-450); RED BLOOD COUNT 3.89 10^6/uL (4.20-5.40); RED CELL DISTRIBUTION WIDTH 14.6 % (12.0-15.0); RETICULOCYTE COUNT % (AUTO) 1.51 % (0.5-2.3); WHITE BLOOD COUNT 6.4 x10^3/uL (4.8-10.8)
[2022-07-25 10:49] LABS: ALBUMIN 4.3 g/dL (3.2-5.5); ALBUMIN/GLOBULIN RATIO 1.4 (1.0-2.2); BILIRUBIN,TOTAL 0.6 mg/dL (0.2-1.0); CALCIUM 9.6 mg/dL (8.5-10.3); CREATININE 0.8 mg/dL (0.4-1.0); POTASSIUM 4.1 mmol/L (3.5-5.0); TOTAL PROTEIN 7.3 g/dL (6.7-8.2)
[2022-07-25 11:10] LABS: FERRITIN 25.5 ng/mL (11.0-306.8)
== END 2022-07-25 10:14 | disposition home or self-care (01) ==
LOC: LAB 10:13
PROVIDERS: ATTEND Internal Medicine Hematology & Oncology
DX: C92.10 Chronic myeloid leukemia, BCR/ABL-positive, not having achieved remission (principal)
CPT/HCPCS: 36415; 80053; 82607; 82728; 83615; 83921; 85025; 85045

== ENCOUNTER 2022-09-13 10:43 | Outpatient (CLI) | payer MEDICARE, OTHER ==
[2022-09-13 14:28] LABS: ABSOLUTE RETICS # AUTO 0.064 10^6/uL (0.020-0.110); BASOPHILS # (AUTO) 0.1 10^3/uL (0.0-0.1); BASOPHILS % (AUTO) 1.8 %; EOSINOPHILS # (AUTO) 0.3 10^3/uL (0.0-0.7); EOSINOPHILS % (AUTO) 4.5 %; HCT - HEMATOCRIT 38.4 % (37.0-47.0); HGB - HEMOGLOBIN 12.4 g/dL (12.0-16.0); LYMPHOCYTES # (AUTO) 1.4 10^3/uL (1.5-3.5); LYMPHOCYTES % (AUTO) 21.9 %; MEAN CORPUSCULAR HEMOGLOBIN 31.2 pg (27.0-31.0); MEAN CORPUSCULAR HGB CONC 32.3 g/dL (32.0-36.0); MEAN CORPUSCULAR VOLUME 96.7 fL (81.0-99.0); MEAN PLATELET VOLUME 9.3 fL (7.9-10.8); MONOCYTES # (AUTO) 1.3 10^3/uL (0.0-1.0); MONOCYTES % (AUTO) 21.2 %; NEUTROPHILS # (AUTO) 3.1 10^3/uL (1.5-6.6); NEUTROPHILS % (AUTO) 49.3 %; PLT - PLATELET COUNT 258 10^3/uL (130-450); RED BLOOD COUNT 3.97 10^6/uL (4.20-5.40); RED CELL DISTRIBUTION WIDTH 13.2 % (12.0-15.0); RETICULOCYTE COUNT % (AUTO) 1.62 % (0.5-2.3); WHITE BLOOD COUNT 6.3 x10^3/uL (4.8-10.8)
[2022-09-13 14:53] LABS: ALBUMIN 4.1 g/dL (3.2-5.5); ALBUMIN/GLOBULIN RATIO 1.3 (1.0-2.2); BILIRUBIN,TOTAL 0.7 mg/dL (0.2-1.0); CALCIUM 9.4 mg/dL (8.5-10.3); CREATININE 0.8 mg/dL (0.4-1.0); POTASSIUM 4.3 mmol/L (3.5-5.0); TOTAL PROTEIN 7.2 g/dL (6.7-8.2)
[2022-09-13 15:04] LABS: CREATININE 0.8 mg/dL (0.4-1.0)
[2022-09-13 15:06] LABS: FERRITIN 25.7 ng/mL (11.0-306.8)
== END 2022-09-13 10:44 | disposition home or self-care (01) ==
LOC: LAB.S 10:43
PROVIDERS: ATTEND Internal Medicine Hematology & Oncology
DX: C92.10 Chronic myeloid leukemia, BCR/ABL-positive, not having achieved remission (principal); I48.0 Paroxysmal atrial fibrillation
CPT/HCPCS: 36415; 80053; 82565; 82607; 82728; 83615; 83921; 85025; 85045

== ENCOUNTER 2022-10-25 09:23 | Outpatient (CLI) | payer MEDICARE, OTHER | END 2022-10-25 09:24 | disposition home or self-care (01) | LOC: LAB 09:23 | PROVIDERS: ATTEND Internal Medicine Hematology & Oncology | DX: C92.10 Chronic myeloid leukemia, BCR/ABL-positive, not having achieved remission (principal) | CPT/HCPCS: 36415 ==

== ENCOUNTER 2022-12-29 16:12 | Outpatient (CLI) | payer MEDICARE, OTHER ==
--- NOTE | 2022-12-29 17:02 | XRAY Report ---
PROCEDURE: Thoracic Spine 2 View INDICATIONS: THORACIC BACK PX TECHNIQUE: 2 views of the thoracic spine were acquired. COMPARISON: None. FINDINGS: Bones: No fractures or dislocations. No suspicious bony lesions. 12 pairs of ribs are noted, and a ppear intact where visualized. Convex left scoliosis centered at T12, [place] angle of 34 degrees. Mild , multilevel disc height loss. Vertebral body height loss of the mid to upper thoracic vertebral bodi es, without endplate retropulsion. Soft tissues: No paravertebral stripe thickening. IMPRESSION: Multilevel degenerative disc disease and convex left scoliosis. Loss of vertebral body height in the mid to upper thoracic spine, without anay endplate compression deformity. Reviewed by: Alejandro Hernández on 12/29/2022 5:00 PM PDT Approved by: Alejandro Hernández on 12/29/2022 5:00 PM PDT Station ID: [id number]
== END 2022-12-29 16:13 | disposition home or self-care (01) ==
LOC: DI 16:12
PROVIDERS: ATTEND Internal Medicine
DX: M51.34 Other intervertebral disc degeneration, thoracic region (principal)

== ENCOUNTER 2023-01-06 12:58 | Emergency (ER) | payer MEDICARE, OTHER ==
[2023-01-06] MEDS ORDERED: LIDOCAINE PATCH 5% TOP STA (13:22)
--- NOTE | 2023-01-06 13:57 | CT Report ---
PROCEDURE: THORACIC SPINE WO INDICATIONS: thoracic pain after straining 1 week ago TECHNIQUE: Noncontrast 3 mm thick sections acquired through the region of interest in the thoracic spine. Sagit jeff and coronal reformats were then constructed. For radiation dose reduction, the following was used : automated exposure control, adjustment of mA and/or kV according to patient size. COMPARISON: None. FINDINGS: Image quality: Excellent. Bones: Moderate leftward thoracic curvature with the apex at the T11-12 level. There is mild T6 verte bral body height loss with slight inferior endplate sclerosis. Minor anterior wedge deformity of T7, also with anterior endplate spurring and slight vacuum phenomenon at the T7-8 disc. Trace retrolisthe sis at T11-12 and T12-L1 and disc degeneration at these levels. There is moderate facet arthropathy i n the lower thoracic spine. There are no visible left-sided rib fractures. No acute vertebral body compression fractures. No suspicious sclerotic or lytic bony lesions. Centr al spinal canal is of normal overall caliber. Soft tissues: Small right pleural effusion. No paravertebral masses or hematomas. Visualized snaker omedial lungs appear clear. IMPRESSION: 1. No visible acute fracture or central canal stenosis. 2. Chronic appearing mild degenerative wedge deformities of T6 and T7. If there is continued concern for subacute fracture, MR imaging to assess for osseous edema is recommended. 3. Disc, facet joint, and endplate degeneration. 4. Small right pleural effusion. Reviewed by: Gemini Iyer MD on 01/06/2023 1:56 PM PDT Approved by: Gemini Iyer MD on 01/06/2023 1:56 PM PDT Station ID: [id number]
[2023-01-06] MEDS ORDERED: HYDROcod/ACETAM 5/325 MG TABLET PO STA (14:28)
--- NOTE | 2023-01-06 14:33 | ED Physician Documentation ---
PD HPI BACK PAIN - Stated complaint Stated Complaint: BACK INJ - Chief complaint Chief Complaint: Back Pain - History obtained from History obtained from: Patient - Additional information Additional information: Patient is an 87-year-old female presenting for evaluation of thoracic left- sided pain that has been present for 1 week. Patient states the pain started as she was straining to have a bowel movement and felt a pop in the area.The pain is sharp and throbbing and worse with certain movements. She states that she has been having trouble sleeping the last 2 nights. The pain is constant. She says at times it moves across to the right side. She denies any radiation of pain into the chest, extremities, lower back. She denies bowel or bladder incontinence. She does have a history of atrial fibrillation and is on a blood thinner. She denies fever, cough or congestion. She saw her primary care provider and an outpatient CT was ordered. However the CT scan was ordered with IV contrast and they were having difficulty in getting hold of her PCP to change the order to without contrast.Patient has been using [id number] Tylenol And states that heat Helps with her pain. Review of Systems Constitutional: denies: Fever Cardiac: denies: Chest pain / pressure Respiratory: denies: Dyspnea GI: denies: Abdominal Pain, Vomiting : denies: Dysuria, Incontinent Musculoskeletal: reports: Back pain Neurologic: denies: Headache 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, 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 HEENT: Cataracts, Tonsil/Adenoidectomy - Present Medications Home Medications: Ambulatory Orders Medication Instructions Recorded Confirmed Atorvastatin Calcium 10 mg PO DAILY 04/24/17 01/06/23 Bimatoprost [Lumigan] 1 drp OP DAILY PM 04/24/17 01/06/23 Rivaroxaban [Xarelto] 15 mg PO DAILY 04/24/17 01/06/23 Timolol Maleate/Pf [Timoptic 0.25% 1 drp OP BID 04/24/17 01/06/23 Ocudose Drop] Dasatinib [Sprycel] 20 tab PO DAILY 02/08/21 01/06/23 Fluticasone 220 Mcg [Flovent] 2 puffs INH BID 12/06/21 01/06/23 diltiaZEM CD [Cardizem Cd] 180 mg PO DAILY 12/06/21 01/06/23 Azithromycin 250 mg PO ONCE 01/06/23 01/06/23 Calcitonin,[place],Synthetic 200 unit IN DAILY 01/06/23 01/06/23 [Calcitonin-[place]] HYDROcod/ACETAM 5/325 [[place] 5/325] 1 tablet PO Q6H PRN #10 tablet 01/06/23 Lidocaine Patch 5% [Lidoderm Patch] 1 patch TOP DAILY PRN #10 patch 01/06/23 Sotalol [Betapace] 80 mg PO BID 01/06/23 01/06/23 Tiotropium [place] [Spiriva 4 gm IH DAILY 01/06/23 01/06/23 Respimat] - Allergies Allergies/Adverse Reactions: Allergies Allergy/AdvReac Type Severity Reaction Status Date / Time morphine Allergy Intermediate Nausea Verified 01/06/23 13:04 - Social History Does the pt smoke?: No Smoking Status: Never smoker Does the pt drink ETOH?: Yes Does the pt have substance abuse?: No - Immunizations Immunizations are current?: Yes - POLST Patient has POLST: No PD ED PE NORMAL - General General: Alert and oriented X 3, No acute distress, Well developed/nourished - HEENT HEENT: Atraumatic, Moist mucous membranes, Pharynx benign - Neck Neck: Supple, no meningeal sign - Cardiac Cardiac: RRR, No murmur, Strong equal pulses - Respiratory Respiratory: No respiratory distress, Clear bilaterally - Abdomen Abdomen: Soft, Non tender, Non distended - Back Back: No spinal TTP - Derm Derm: Warm and dry - Extremities Extremities: No deformity - Neuro Neuro: Alert and oriented X 3, No motor deficit, No sensory deficit, Normal speech PD ED PE EXPANDED - Back Back visual: 1 - tenderness Results - Vitals Vitals: Vital Signs - 24 hr 01/06/23 01/06/23 13:04 15:07 Temperature 36.4 C L Heart Rate 62 56 L Respiratory 18 16 Rate Blood Pressure 175/67 H 151/58 H O2 Saturation 100 99 Oxygen O2 Source Room air - EKG (time done) 1344 EKG releavant findings:: EKG personally interpreted by author of this note. Relevant findings are: Rate 55, Sinus bradycardia, no STEMI, no ST depressions, QTc 441 Rate: Rate (enter#) (55) Rhythm: Sinus bradycardia Intervals: No: Prolonged QT Ischemia: No: ST elevation c/w ischemia PD Medical Decision Making - ED course Complexity details: reviewed results, re-evaluated patient, d/w patient ED course: Patient is 87-year-old female presenting for evaluation of left-sided lower thoracic pain after straining to have a bowel movement 1 week ago. Patient states that the pain has persisted. She denies radiation to the pain. She has had trouble sleeping the past 2 nights. She has no midline spinal tenderness. Her neuro exam is normal. She is afebrile. She does not have symptoms to suggest cauda equina, epidural abscess or hematoma. A CT scan was obtained given her age to evaluate for thoracic fracture. I did review the images. She does have degenerative changes but I do not see signs of an acute fracture. We discussed continued supportive care. The patient is interested in receiving something stronger than [id number] medications to help her sleep at night. We discussed a small dose of a narcotic medication to use sparingly. She understands the risks of potential side effects of this medication. She is also instructed on need for close follow-up with her primary care. She has no chest pain. EKG was also obtained which demonstrates a sinus rhythm.I do not think her symptoms are cardiac in etiology as they have been constant and after a specific event without worsening. Departure - Departure Disposition: 01 Home, Self Care Clinical Impression: Strain of thoracic back region Condition: Stable Instructions: ED Neck Back Pain General Prescriptions: Lidocaine Patch 5% [Lidoderm Patch] 1 patch TOP DAILY PRN #10 patch PRN Reason: pain HYDROcod/ACETAM 5/325 [[place] 5/325] 1 tablet PO Q6H PRN #10 tablet PRN Reason: Pain Comments: Your CT scan does not show any new fractures. You likely have a muscle strain or spasm causing your pain. I would recommend continue with anti-inflammatory such as acetaminophen. I would also continue with lidocaine patches and heat as tolerated. I have sent a small amount of narcotic pain medication to [facility] in [place]. I would use this sparingly.I would recommend close follow-up with Dr. Cordova. Return to the ER if you develop any worsening symptoms. IMPRESSION: 1. No visible acute fracture or central canal stenosis. 2. Chronic appearing mild degenerative wedge deformities of T6 and T7. If there is continued concern for subacute fracture, MR imaging to assess for osseous edema is recommended. 3. Disc, facet joint, and endplate degeneration. 4. Small right pleural effusion. Discharge Date/Time: 01/06/23 15:08
[2023-01-06 15:08] VITALS: BP 151/58
== END 2023-01-06 15:08 | disposition home or self-care (01) ==
LOC: ED 12:58
DX: S29.012A Strain of muscle and tendon of back wall of thorax, initial encounter (principal); X50.9XXA Other and unspecified overexertion or strenuous movements or postures, initial encounter; Y93.E8 Activity, other personal hygiene
CPT/HCPCS: 72128; 93005; 99284; A9270

== ENCOUNTER 2023-01-26 09:42 | Outpatient (CLI) | payer MEDICARE, OTHER ==
--- NOTE | 2023-01-27 09:33 | Mammography Report ---
BILATERAL DIGITAL DIAGNOSTIC MAMMOGRAM 3D/2D: 01/26/2023 CLINICAL: Left nipple abnormalities. Due for bilateral imaging. Comparison is made to exams dated: 12/26/2018 mammogram - [facility], 6 breast MRI - [facility], 04/15/2015 localization, 03/03/2015 stereotactic biopsy, mammogram, and 02/24/2015 stereotactic biopsy - [facility]. Both breasts are heterogeneously dense, which may obscure small masses (category c / 51-75% glandular tissue). No significant masses, calcifications, or other findings are seen in either breast. IMPRESSION: INCOMPLETE: NEEDS ADDITIONAL IMAGING EVALUATION There is no abnormality seen in the left breast to correspond with the nipple abnormality, however, u ltrasound is recommended. This exam was interpreted at Station ID: [id number]. NOTE: For mammograms, a report in lay terms will be sent to the patient. Approximately 15% of breast malignancies will not be visualized mammographically. In the management of a palpable breast mass, a negative mammogram must not discourage biopsy of a clinically suspicious lesion. Electronically Signed By: Vahid Dietrich M.D. lc/:01/26/2023 10:44:18 ACR BI-RADS Category 0: Incomplete 3340F PARENCHYMAL PATTERN: (D) - The breast(s) demonstrate(s) heterogeneously dense fibroglandular parenchy ma. BI-RADS CATEGORY: (0) - 0 Ultrasound [id number] Immediate follow-up LATERALITY: (B)
--- NOTE | 2023-01-27 09:33 | Ultrasound Report ---
LIMITED ULTRASOUND OF LEFT BREAST: 01/26/2023 CLINICAL: Left Nipple itching. Comparison is made to exams dated: 01/26/2023 mammogram - [facility], 12/26/2018 [facility], and 10/19/2015 breast MRI - [facility]. Color flow ultrasound of the left breast retroareolar was performed. Davalos scale images of the real- time examination were reviewed. IMPRESSION: NEGATIVE There is no sonographic evidence of malignancy. There is no abnormality seen in the left breast to correspond with the nipple abnormality, however, c linical correlation and clinical followup are recommended. Return to annual mammogram screening schedule is recommended. This exam was interpreted at Station ID: [id number]. Electronically Signed By: Vahid Dietrich M.D. lc/:01/26/2023 10:44:55 Ultrasound BI-RADS: 1 Negative BI-RADS CATEGORY: (1) - 1 RECOMMENDATION: (ANNUAL) - Recommend routine annual screening mammography. [id number] return to screening LATERALITY: (B)
== END 2023-01-26 09:43 | disposition home or self-care (01) ==
LOC: DI 09:42
PROVIDERS: ATTEND Internal Medicine
DX: N64.89 Other specified disorders of breast (principal); C92.10 Chronic myeloid leukemia, BCR/ABL-positive, not having achieved remission
CPT/HCPCS: 36415; 80053; 85025

== ENCOUNTER 2023-01-26 10:54 | Outpatient (CLI) | payer MEDICARE, OTHER ==
[2023-01-26 11:18] LABS: BASOPHILS # (AUTO) 0.1 10^3/uL (0.0-0.1); BASOPHILS % (AUTO) 2.3 %; EOSINOPHILS # (AUTO) 0.3 10^3/uL (0.0-0.7); EOSINOPHILS % (AUTO) 6.2 %; HCT - HEMATOCRIT 39.9 % (37.0-47.0); HGB - HEMOGLOBIN 13.3 g/dL (12.0-16.0); LYMPHOCYTES % (AUTO) 19.6 %; MEAN CORPUSCULAR HEMOGLOBIN 31.5 pg (27.0-31.0); MEAN CORPUSCULAR HGB CONC 33.3 g/dL (32.0-36.0); MEAN CORPUSCULAR VOLUME 94.5 fL (81.0-99.0); MEAN PLATELET VOLUME 8.3 fL (7.9-10.8); MONOCYTES # (AUTO) 1.2 10^3/uL (0.0-1.0); MONOCYTES % (AUTO) 22.4 %; NEUTROPHILS # (AUTO) 2.4 10^3/uL (1.5-6.6); NEUTROPHILS % (AUTO) 47.6 %; PLT - PLATELET COUNT 319 10^3/uL (130-450); RED BLOOD COUNT 4.22 10^6/uL (4.20-5.40); WHITE BLOOD COUNT 5.1 x10^3/uL (4.8-10.8)
[2023-01-26 11:29] LABS: ALBUMIN 4.4 g/dL (3.2-5.5); ALBUMIN/GLOBULIN RATIO 1.4 (1.0-2.2); BILIRUBIN,TOTAL 0.6 mg/dL (0.2-1.0); CALCIUM 9.4 mg/dL (8.5-10.3); CREATININE 0.7 mg/dL (0.4-1.0); POTASSIUM 4.2 mmol/L (3.5-5.0); TOTAL PROTEIN 7.5 g/dL (6.7-8.2)
== END 2023-01-26 10:55 | disposition home or self-care (01) ==
LOC: LAB 10:54
PROVIDERS: ATTEND Internal Medicine Hematology & Oncology
DX: C92.10 Chronic myeloid leukemia, BCR/ABL-positive, not having achieved remission (principal)
CPT/HCPCS: 36415; 80053; 85025

== ENCOUNTER 2023-02-07 08:37 | Outpatient (CLI) | payer MEDICARE, OTHER ==
[2023-02-07 14:40] LABS: ABSOLUTE RETICS # AUTO 0.071 10^6/uL (0.020-0.110); BASOPHILS # (AUTO) 0.1 10^3/uL (0.0-0.1); BASOPHILS % (AUTO) 2.7 %; EOSINOPHILS # (AUTO) 0.4 10^3/uL (0.0-0.7); EOSINOPHILS % (AUTO) 9.6 %; HCT - HEMATOCRIT 40.9 % (37.0-47.0); HGB - HEMOGLOBIN 13.4 g/dL (12.0-16.0); LYMPHOCYTES # (AUTO) 0.8 10^3/uL (1.5-3.5); LYMPHOCYTES % (AUTO) 21.9 %; MEAN CORPUSCULAR HEMOGLOBIN 31.3 pg (27.0-31.0); MEAN CORPUSCULAR HGB CONC 32.8 g/dL (32.0-36.0); MEAN CORPUSCULAR VOLUME 95.6 fL (81.0-99.0); MEAN PLATELET VOLUME 9.4 fL (7.9-10.8); MONOCYTES # (AUTO) 0.8 10^3/uL (0.0-1.0); MONOCYTES % (AUTO) 21.9 %; NEUTROPHILS # (AUTO) 1.5 10^3/uL (1.5-6.6); NEUTROPHILS % (AUTO) 40.2 %; PLT - PLATELET COUNT 407 10^3/uL (130-450); RED BLOOD COUNT 4.28 10^6/uL (4.20-5.40); RED CELL DISTRIBUTION WIDTH 13.3 % (12.0-15.0); RETICULOCYTE COUNT % (AUTO) 1.66 % (0.5-2.3); WHITE BLOOD COUNT 3.7 x10^3/uL (4.8-10.8)
[2023-02-07 14:56] LABS: ALBUMIN 4.2 g/dL (3.2-5.5); ALBUMIN/GLOBULIN RATIO 1.3 (1.0-2.2); BILIRUBIN,TOTAL 0.6 mg/dL (0.2-1.0); CALCIUM 9.8 mg/dL (8.5-10.3); CREATININE 0.9 mg/dL (0.4-1.0); POTASSIUM 4.3 mmol/L (3.5-5.0); TOTAL PROTEIN 7.4 g/dL (6.7-8.2)
[2023-02-07 15:17] LABS: FERRITIN 28.8 ng/mL (11.0-306.8)
== END 2023-02-07 08:38 | disposition home or self-care (01) ==
LOC: LAB.S 08:37
PROVIDERS: ATTEND Internal Medicine Hematology & Oncology
DX: C92.10 Chronic myeloid leukemia, BCR/ABL-positive, not having achieved remission (principal)
CPT/HCPCS: 36415; 80053; 82607; 82728; 83615; 83921; 85025; 85045

== ENCOUNTER 2023-02-08 08:15 | Outpatient (CLI) | payer MEDICARE, OTHER | END 2023-02-08 08:16 | disposition home or self-care (01) | LOC: LAB.S 08:15 | PROVIDERS: ATTEND Internal Medicine Hematology & Oncology | DX: C92.10 Chronic myeloid leukemia, BCR/ABL-positive, not having achieved remission (principal) | CPT/HCPCS: 36415; 83615 ==

== ENCOUNTER 2023-02-16 17:12 | Emergency (ER) | payer MEDICARE, OTHER ==
[2023-02-16 17:22] VITALS: BP 156/83
--- NOTE | 2023-02-16 17:31 | ED Physician Documentation ---
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 Over the last couple of days has developed low back pain with this. No incontinence. No fevers. 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 HEENT: Cataracts, Tonsil/Adenoidectomy - Present Medications Home Medications: Ambulatory Orders Medication Instructions Recorded Confirmed Atorvastatin Calcium 10 mg PO DAILY 04/24/17 01/06/23 Bimatoprost [Lumigan] 1 drp OP DAILY PM 04/24/17 01/06/23 Rivaroxaban [Xarelto] 15 mg PO DAILY 04/24/17 01/06/23 Timolol Maleate/Pf [Timoptic 0.25% 1 drp OP BID 04/24/17 01/06/23 Ocudose Drop] Dasatinib [Sprycel] 20 tab PO DAILY 02/08/21 01/06/23 Fluticasone 220 Mcg [Flovent] 2 puffs INH BID 12/06/21 01/06/23 diltiaZEM CD [Cardizem Cd] 180 mg PO DAILY 12/06/21 01/06/23 Azithromycin 250 mg PO ONCE 01/06/23 01/06/23 Calcitonin,[place],Synthetic 200 unit IN DAILY 01/06/23 01/06/23 [Calcitonin-[place]] HYDROcod/ACETAM 5/325 [[place] 5/325] 1 tablet PO Q6H PRN #10 tablet 01/06/23 Lidocaine Patch 5% [Lidoderm Patch] 1 patch TOP DAILY PRN #10 patch 01/06/23 Sotalol [Betapace] 80 mg PO BID 01/06/23 01/06/23 Tiotropium [place] [Spiriva 4 gm IH DAILY 01/06/23 01/06/23 Respimat] Sodium/Potassium/Mag Sulfates 354 ml PO ONCE #1 kit 02/16/23 [Suprep Bowel Prep Kit] - Allergies Allergies/Adverse Reactions: Allergies Allergy/AdvReac Type Severity Reaction Status Date / Time No Known Drug Allergies Allergy Verified 02/16/23 17:21 - Social History Does the pt smoke?: No Smoking Status: Never smoker Does the pt drink ETOH?: Yes Does the pt have substance abuse?: No - Immunizations Immunizations are current?: Yes - POLST Patient has POLST: No PD ED PE NORMAL - Vitals Vital signs reviewed: Yes - General General: Alert and oriented X 3, No acute distress - Abdomen Abdomen: Normal bowel sounds, Soft - Rectal Rectal: Other (No fecal impaction within fingers reach. No gross blood.) - Back Back: No spinal TTP - Neuro Neuro: Alert and oriented X 3, Normal speech Results - Vitals Vitals: Vital Signs - 24 hr 02/16/23 17:13 Temperature 36.3 C L Heart Rate 61 Respiratory 18 Rate Blood Pressure 156/83 H O2 Saturation 99 Oxygen O2 Source Room air - Labs Labs: Laboratory Tests 02/16/23 02/16/23 17:59 17:59 WBC 6.3 RBC 4.43 Hgb 13.7 Hct 41.2 MCV 93.0 MCH 30.9 MCHC 33.3 RDW 12.8 Plt Count 386 MPV 9.1 Neut # (Auto) 3.4 Lymph # (Auto) 1.0 L [place] # (Auto) 1.4 H Eos # (Auto) 0.2 Baso # (Auto) 0.1 Absolute Nucleated RBC 0.00 Nucleated RBC % 0.0 Sodium 130 L Potassium 4.3 Chloride 95 L Carbon Dioxide 28 Anion Gap 7.0 BUN 12 Creatinine 0.8 Estimated GFR (MDRD) 68 L Glucose 129 H Calcium 9.4 - Rads (name of study) CT of the abdomen pelvis showing large stool load, coronary artery disease. No acute process otherwise. Relevant Findings:: Final report received, EMP independent interpretation of test PD Medical Decision Making - ED course Complexity details: reviewed results (CBC is normal. CMP showing mild hyponatremia, this is within range of prior values looking at old labs.) ED course: 87-year-old woman with constipation. No fecal impaction within fingers reach on exam. We will treat with laxatives. She would prefer she start them tomorrow given the time of night. Departure - Departure Disposition: 01 Home, Self Care Clinical Impression: Constipation Condition: Good Record reviewed to determine appropriate education?: Yes Instructions: ED Constipation Prescriptions: Sodium/Potassium/Mag Sulfates [Suprep Bowel Prep Kit] 354 ml PO ONCE #1 kit Comments: I sent the prescription electronically to [facility] in [place]. Which you do is take 6 of the pills and then follow it with 2 large glasses of water. Then wait a few hours and repeat. This should start to result in copious bowel movements. Follow-up with Dr. Cordova within the week for further evaluation and treatment. Return if worse. Discharge Date/Time: 02/16/23 19:28
[2023-02-16 18:04] LABS: BASOPHILS # (AUTO) 0.1 10^3/uL (0.0-0.1); BASOPHILS % (AUTO) 2.2 %; EOSINOPHILS # (AUTO) 0.2 10^3/uL (0.0-0.7); EOSINOPHILS % (AUTO) 3.6 %; HCT - HEMATOCRIT 41.2 % (37.0-47.0); HGB - HEMOGLOBIN 13.7 g/dL (12.0-16.0); LYMPHOCYTES % (AUTO) 15.2 %; MEAN CORPUSCULAR HEMOGLOBIN 30.9 pg (27.0-31.0); MEAN CORPUSCULAR HGB CONC 33.3 g/dL (32.0-36.0); MEAN PLATELET VOLUME 9.1 fL (7.9-10.8); MONOCYTES # (AUTO) 1.4 10^3/uL (0.0-1.0); NEUTROPHILS # (AUTO) 3.4 10^3/uL (1.5-6.6); NEUTROPHILS % (AUTO) 53.8 %; PLT - PLATELET COUNT 386 10^3/uL (130-450); RED BLOOD COUNT 4.43 10^6/uL (4.20-5.40); RED CELL DISTRIBUTION WIDTH 12.8 % (12.0-15.0); WHITE BLOOD COUNT 6.3 x10^3/uL (4.8-10.8)
[2023-02-16 18:14] LABS: CALCIUM 9.4 mg/dL (8.5-10.3); CREATININE 0.8 mg/dL (0.4-1.0); POTASSIUM 4.3 mmol/L (3.5-5.0)
[2023-02-16] MEDS ORDERED: iohexoL-300 100 ML VIAL IVP ONE (18:51)
--- NOTE | 2023-02-16 19:01 | CT Report ---
PROCEDURE: ABDOMEN/PELVIS W INDICATIONS: IV only, abd / back pn CONTRAST: 100ml Omni 300 TECHNIQUE: After the administration of intravenous contrast, 5 mm thick sections acquired from the diaphragms to the symphysis. 5 mm thick coronal and sagittal reformats were acquired. For radiation dose reducti on, the following was used: automated exposure control, adjustment of mA and/or kV according to krysten ent size. COMPARISON: CT dated 02/08/2021 FINDINGS: Image quality: Excellent. Lung bases and heart: Calcification of the coronary vasculature. Liver: No solid mass. Gallbladder and biliary tree: Is within normal limits Spleen: No splenomegaly. Pancreas: No pancreatic ductal dilation. Adrenals: No adrenal nodule. Kidneys and ureters: No hydronephrosis. No renal cystic lesion which requires follow up. No solid mas s. Bowel and peritoneum: No bowel distension. No pathologic free fluid. Appendix not seen. No evidence o f appendicitis. Lymph nodes: No central or retroperitoneal adenopathy. Vessels: No infrarenal aortic aneurysm. PELVIS Reproductive organs: Unremarkable. Bladder: No abnormal wall thickening, accounting for underdistension. Pelvic lymph nodes: No pelvic adenopathy by size criteria. Bones: No aggressive osseous abnormality. Other: No significant ventral or inguinal hernia. IMPRESSION: 1. No acute process. 2. Appendix not seen. No evidence of appendicitis. 3. Coronary artery disease. Reviewed by: Mark Olsen MD on 02/16/2023 7:00 PM PDT Approved by: Mark Olsen MD on 02/16/2023 7:00 PM PDT Station ID: [id number]
== END 2023-02-16 19:28 | disposition home or self-care (01) ==
LOC: ED 17:12
DX: K59.00 Constipation, unspecified (principal); I10 Essential (primary) hypertension; I48.91 Unspecified atrial fibrillation; Z79.01 Long term (current) use of anticoagulants
CPT/HCPCS: 36415; 80048; 85025; 99284

== ENCOUNTER 2023-02-16 17:59 | Outpatient (CLI) | payer MEDICARE, OTHER ==
[~2023-02-16 17:59] MED LIST: iohexoL-300 100 ML VIAL ONE
== END 2023-02-16 23:59 | disposition home or self-care (01) ==
LOC: DI 17:59
PROVIDERS: ATTEND Internal Medicine
DX: Z53.9 Procedure and treatment not carried out, unspecified reason (principal)

== ENCOUNTER 2023-02-22 12:52 | Outpatient (CLI) | payer MEDICARE, OTHER ==
--- NOTE | 2023-02-22 17:24 | MRI Report ---
PROCEDURE: THORACIC SPINE WO INDICATIONS: LOW BACK PAIN, THORACIC BACK PAIN TECHNIQUE: Noncontrast sagittal T1 spine echo and T2 fast spin echo, sagittal STIR, axial T1 and T2 fast spin ec ho through the thoracic spine. COMPARISON: X-ray lumbar spine 02/22/2023, x-ray thoracic spine 12/29/2022, MRI of thoracic spine 09/25, CT thoracic spine 01/06/2023 FINDINGS: Image quality: Excellent. Alignment and Curvature: There is normal bony alignment. Bone Marrow: Marrow is of normal overall signal. No acute vertebral body compression fractures. Paraspinous Soft Tissues: No paravertebral masses. Miscellaneous: On axial images, central canal and foramina appear widely patent at all scanned level s. Multilevel disc bulges and protrusions overall stable compared to prior exam. Previously identifi ed wedge deformities at T7 and mild height loss at T6 are present. These areas demonstrate increased STIR and hypointense T1 signal. IMPRESSION: Compression deformities at T6 and 7 demonstrate hypointense T1 and hyperintense T2 signal suggestive of subacute fracture. Given appearance of signal change particularly within the T6, this also could r epresent pathologic fracture. Recommend correlation to patient history and MR thoracic spine with con trast is recommended for further evaluation as indicated. Additionally, consultation for potential ky phoplasty intervention may be obtained with referral to interventional services. Reviewed by: Evelia Moralez MD on 02/22/2023 5:22 PM PDT Approved by: Evelia Moralez MD on 02/22/2023 5:22 PM PDT Station ID: [id number]
--- NOTE | 2023-02-22 17:30 | MRI Report ---
PROCEDURE: LUMBAR SPINE WO INDICATIONS: LOW BACK PAIN, THORACIC BACK PAIN TECHNIQUE: Noncontrast sagittal T1 spin echo and T2 fast echo, sagittal STIR, axial T1 and T2 fast spin echo thr ough the lumbar spine. In cases with scoliosis, additional coronal T2 fast spin echo may be performe d. COMPARISON: MRI thoracic spine 02/22/2023 FINDINGS: Image quality: Excellent. Alignment and Curvature: There is S-shaped scoliotic curvature within the thoracolumbar spine. There is grade 1 anterolisthesis of L4 and L5, 4 mm as well as L5 on S1 measuring 6 mm. Trace retrolisthes is is present of L1 on L2, L2 on L3. There is appearance of pars/partial pars defect at L5. Bone Marrow: Marrow is of normal overall signal. However, endplate deformities are present at L2 and L3 with corresponding hypointense T1 and hyperintense T2 signal. Similar although less prominent azul earance is noted at L4. There is a heterogeneous appearance of marrow signal at L5. Spinal Cord: Conus medullaris terminates at the L1 level. Visualized cord demonstrates normal signa l and size. Paraspinous Soft Tissues: No paravertebral masses. Discs: Moderate to severe multilevel disc desiccation is present most prominent at L5-S1. T12-L1: Mild disc bulge with moderate narrowing of the right lateral recess as well as proximal righ t foramina. L1-L2: Mild disc bulge with mild spinal stenosis. Severe right foraminal narrowing with facet and ligamentum flavum hypertrophy. L2-L3: Mild disc bulge with minimal to mild spinal stenosis. Severe left and moderate right forami nal narrowing with facet and ligamentum flavum hypertrophy. L3-L4: Mild disc bulge with mild spinal stenosis. Severe left and moderate to severe right foramina l narrowing with facet and ligamentum flavum hypertrophy. L4-L5: Mild disc bulge with moderate spinal stenosis. Severe left and mild right foraminal narrowin g with mild appearance of compression of the exiting left L4 nerve root. L5-S1: Mild disc bulge with moderate spinal stenosis. Severe bilateral foraminal narrowing with com pression of the exiting L5 nerve roots bilaterally. IMPRESSION: Multilevel degenerative changes as detailed above. Compression deformities at L2 and L3 as well as less prominent at L4 and heterogeneous marrow signal at L5. Appearance raises concern for pathologic fracture. Lumbar spine with contrast is recommended f or further evaluation as well as correlation with clinical history. As clinically indicated, consulta tion with interventional services may be obtained for potential kyphoplasty. Reviewed by: Evelia Moralez MD on 02/22/2023 5:28 PM PDT Approved by: Evelia Moralez MD on 02/22/2023 5:28 PM PDT Station ID: [id number]
== END 2023-02-22 12:53 | disposition home or self-care (01) ==
LOC: DI 12:52
PROVIDERS: ATTEND Internal Medicine
DX: M43.8X4 Other specified deforming dorsopathies, thoracic region (principal); M51.36 Other intervertebral disc degeneration, lumbar region; M48.061 Spinal stenosis, lumbar region without neurogenic claudication; M47.816 Spondylosis without myelopathy or radiculopathy, lumbar region; M51.17 Intervertebral disc disorders with radiculopathy, lumbosacral region; M48.07 Spinal stenosis, lumbosacral region; M43.8X6 Other specified deforming dorsopathies, lumbar region

== ENCOUNTER 2023-05-10 11:12 | Outpatient (CLI) | payer MEDICARE, OTHER ==
[2023-05-10 11:33] LABS: ABSOLUTE RETICS # AUTO 0.071 10^6/uL (0.020-0.110); BASOPHILS # (AUTO) 0.1 10^3/uL (0.0-0.1); BASOPHILS % (AUTO) 1.8 %; EOSINOPHILS # (AUTO) 0.2 10^3/uL (0.0-0.7); EOSINOPHILS % (AUTO) 4.4 %; HCT - HEMATOCRIT 38.9 % (37.0-47.0); LYMPHOCYTES # (AUTO) 0.9 10^3/uL (1.5-3.5); MEAN CORPUSCULAR HEMOGLOBIN 31.2 pg (27.0-31.0); MEAN CORPUSCULAR HGB CONC 33.4 g/dL (32.0-36.0); MEAN CORPUSCULAR VOLUME 93.3 fL (81.0-99.0); MEAN PLATELET VOLUME 8.5 fL (7.9-10.8); MONOCYTES # (AUTO) 1.2 10^3/uL (0.0-1.0); MONOCYTES % (AUTO) 21.4 %; NEUTROPHILS % (AUTO) 54.9 %; PLT - PLATELET COUNT 441 10^3/uL (130-450); RED BLOOD COUNT 4.17 10^6/uL (4.20-5.40); RED CELL DISTRIBUTION WIDTH 13.6 % (12.0-15.0); RETICULOCYTE COUNT % (AUTO) 1.71 % (0.5-2.3); WHITE BLOOD COUNT 5.4 x10^3/uL (4.8-10.8)
[2023-05-10 11:56] LABS: ALBUMIN 4.3 g/dL (3.2-5.5); ALBUMIN/GLOBULIN RATIO 1.6 (1.0-2.2); BILIRUBIN,TOTAL 0.5 mg/dL (0.2-1.0); CALCIUM 9.8 mg/dL (8.5-10.3); CREATININE 0.7 mg/dL (0.6-1.3); PHOSPHORUS 2.6 mg/dL (2.5-5.0); POTASSIUM 4.1 mmol/L (3.5-4.5)
[2023-05-10 12:16] LABS: FERRITIN 41.4 ng/mL (11.0-306.8)
== END 2023-05-10 11:13 | disposition home or self-care (01) ==
LOC: LAB 11:12
PROVIDERS: ATTEND Internal Medicine Hematology & Oncology
DX: C92.10 Chronic myeloid leukemia, BCR/ABL-positive, not having achieved remission (principal)
CPT/HCPCS: 36415; 80053; 82607; 82728; 83615; 83921; 84100; 85025; 85045

== ENCOUNTER 2023-06-27 14:01 | Outpatient (CLI) | payer MEDICARE, OTHER ==
--- NOTE | 2023-06-28 17:36 | Ultrasound Report ---
PROCEDURE: Abdomen Limited INDICATIONS: RIGHT UPPER QUADRANT PAIN TECHNIQUE: Real-time focused scanning was performed of the abdomen, with image documentation. COMPARISONS: None. FINDINGS: Liver: Liver is normal in size and homogeneous in echotexture. Gallbladder: No stones. Wall thickness is normal measuring 2.1 mm. Biliary ducts: Intrahepatic bile ducts are non-dilated. Extrahepatic bile duct caliber measures 5.6 mm. Normal is 6-7 mm or less in diameter, or 10 mm or less post-cholecystectomy. Pancreas: Visualized portions of the pancreas are sonographically normal. Right kidney: Mildly atrophic. Right kidney measures 9.2 cm long. No hydronephrosis or nephrolithiasi s. No solid masses. No complex renal cystic lesions which require follow-up. Aorta: Visualized aorta is normal in caliber at less than 3 cm. IVC: Intrahepatic inferior vena cava is patent. Miscellaneous: No free abdominal fluid. IMPRESSION: No gross abnormality. Reviewed by: Evelia Moralez MD on 06/28/2023 5:34 PM PDT Approved by: Evelia Moralez MD on 06/28/2023 5:34 PM PDT Station ID: [id number]
== END 2023-06-27 14:02 | disposition home or self-care (01) ==
LOC: DI 14:01
PROVIDERS: ATTEND Internal Medicine
DX: R10.11 Right upper quadrant pain (principal)

== ENCOUNTER 2023-07-24 11:08 | Outpatient (CLI) | payer MEDICARE, OTHER ==
[2023-07-24 11:33] LABS: ABSOLUTE RETICS # AUTO 0.073 10^6/uL (0.020-0.110); BASOPHILS # (AUTO) 0.2 10^3/uL (0.0-0.1); BASOPHILS % (AUTO) 2.4 %; EOSINOPHILS # (AUTO) 0.5 10^3/uL (0.0-0.7); EOSINOPHILS % (AUTO) 7.5 %; HGB - HEMOGLOBIN 12.6 g/dL (12.0-16.0); LYMPHOCYTES # (AUTO) 1.2 10^3/uL (1.5-3.5); LYMPHOCYTES % (AUTO) 18.1 %; MEAN CORPUSCULAR HEMOGLOBIN 30.1 pg (27.0-31.0); MEAN CORPUSCULAR HGB CONC 32.3 g/dL (32.0-36.0); MEAN CORPUSCULAR VOLUME 93.3 fL (81.0-99.0); MEAN PLATELET VOLUME 8.9 fL (7.9-10.8); MONOCYTES # (AUTO) 1.7 10^3/uL (0.0-1.0); MONOCYTES % (AUTO) 25.5 %; NEUTROPHILS # (AUTO) 2.9 10^3/uL (1.5-6.6); NEUTROPHILS % (AUTO) 44.8 %; PLT - PLATELET COUNT 553 10^3/uL (130-450); RED BLOOD COUNT 4.18 10^6/uL (4.20-5.40); RED CELL DISTRIBUTION WIDTH 13.9 % (12.0-15.0); RETICULOCYTE COUNT % (AUTO) 1.75 % (0.5-2.3); WHITE BLOOD COUNT 6.6 x10^3/uL (4.8-10.8)
[2023-07-24 11:34] LABS: SLIDE REVIEW? Indicated
[2023-07-24 11:48] LABS: ALBUMIN 4.5 g/dL (3.2-5.5); ALBUMIN/GLOBULIN RATIO 1.8 (1.0-2.2); BILIRUBIN,TOTAL 0.5 mg/dL (0.2-1.0); CALCIUM 9.6 mg/dL (8.5-10.3); CREATININE 0.8 mg/dL (0.6-1.3); PHOSPHORUS 3.1 mg/dL (2.5-5.0); POTASSIUM 4.1 mmol/L (3.5-4.5)
[2023-07-24 11:57] LABS: PLATELET ESTIMATE, MANUAL INCREASED (>450,000) (NORMAL); PLATELET MORPHOLOGY NORMAL APPEARANCE (NORMAL); RBC MORPHOLOGY (MULTIPLE) 1+ ANISOCYTOSIS (NORMAL); WBC MORPHOLOGY (MULTIPLE) NORMAL APPEARANCE (NORMAL)
[2023-07-24 12:07] LABS: FERRITIN 17.8 ng/mL (11.0-306.8)
== END 2023-07-24 11:09 | disposition home or self-care (01) ==
LOC: LAB 11:08
PROVIDERS: ATTEND Internal Medicine Hematology & Oncology
DX: C92.10 Chronic myeloid leukemia, BCR/ABL-positive, not having achieved remission (principal)
CPT/HCPCS: 36415; 80053; 82607; 82728; 83615; 83921; 84100; 85025; 85045

== ENCOUNTER 2023-09-19 11:47 | Outpatient (CLI) | payer MEDICARE, OTHER ==
--- NOTE | 2023-09-19 14:53 | XRAY Report ---
PROCEDURE: Chest 2V INDICATIONS: DYSURIA, WHEEZING, ACUTE COUGH TECHNIQUE: 2 views of the chest were acquired. COMPARISON: Chest radiographs 09/29/2021 FINDINGS: Surgical changes and devices: None. Lungs and pleura: Lungs are mildly hyperexpanded. Bilateral reticulonodular opacities are seen diffu sely in both lungs. No pleural effusion or pneumothorax. Mediastinum: Mediastinal contours appear normal. Heart size is normal. Bones and chest wall: No suspicious bony lesions. Overlying soft tissues appear unremarkable. IMPRESSION: Mild bilateral reticulonodular opacities are suspicious for an atypical or viral pneumonia. Reviewed by: Adalberto Martin MD on 09/19/2023 2:52 PM PST Approved by: Adalberto Martin MD on 09/19/2023 2:52 PM PST Station ID: [id number]
== END 2023-09-19 11:48 | disposition home or self-care (01) ==
LOC: DI 11:47
PROVIDERS: ATTEND Internal Medicine
DX: R05.1 Acute cough (principal); R06.2 Wheezing; R30.0 Dysuria; R91.8 Other nonspecific abnormal finding of lung field

== ENCOUNTER 2023-09-27 13:13 | Outpatient (CLI) | payer MEDICARE, OTHER ==
--- NOTE | 2023-09-27 15:38 | CT Report ---
PROCEDURE: Abdomen/Pelvis WO INDICATIONS: DYSURIA TECHNIQUE: A CT scan of the abdomen and pelvis was performed without the use of intravenous contrast. Images we re recorded and evaluated at appropriate window settings. Reformats: coronal and sagittal. For radiat ion dose reduction, the following was used: automated exposure control, adjustment of mA and/or kV ac cording to patient size. COMPARISON: None. FINDINGS: Image quality: Excellent. Lung bases and heart: Unremarkable. Liver: No contour-deforming mass. Gallbladder and biliary tree: Gallbladder not well seen Spleen: No splenomegaly. Pancreas: No pancreatic ductal dilation. Adrenals: No adrenal nodule. Kidneys and ureters: No hydronephrosis. No renal cystic lesion which requires follow up. No solid mas s identified and is noncontrast images. Bilateral phleboliths of the pelvis noted. Bowel and peritoneum: Large amount of stool throughout the colon. Large amount of gas throughout the bowel. Lymph nodes: Limited evaluation with no IV contrast with no gross abnormality. Vessels: Scattered atherosclerotic calcifications. Coronary calcifications are also noted. PELVIS Reproductive organs: Unremarkable. Bladder: Unremarkable as visualized Pelvic lymph nodes: No pelvic adenopathy by size criteria. Bones: Severe osteopenia. Multilevel Schmorl's nodes and compression deformities especially severe of L3 superior endplate. Multilevel degenerative changes with vacuum phenomenon throughout the lumbar s pine. Grade 1 anterolisthesis of L5 over S1 caused by severe DJD of the facet joints. Other: No significant ventral or inguinal hernia. IMPRESSION: 1. No hydronephrosis or renal stone seen. The visualized portions of the ureters appear unremarkable. Evaluation at the urethrovesical junction is somewhat limited due to paucity of pelvic fat but no gr oss abnormal seen. 2. Large amount of stool is seen throughout the colon. Evaluate for constipation. Large amount of gas seen throughout the bowel. 3. Severe osteopenia, scoliosis and compression deformities of the lumbar spine of unknown chronicity . Reviewed by: Lonny Hirsch MD on 09/27/2023 3:36 PM PST Approved by: Lonny Hirsch MD on 09/27/2023 3:36 PM PST Station ID: [id number]
== END 2023-09-27 13:14 | disposition home or self-care (01) ==
LOC: DI 13:13
PROVIDERS: ATTEND Internal Medicine
DX: R30.0 Dysuria (principal); R06.2 Wheezing; R05.1 Acute cough; M85.88 Other specified disorders of bone density and structure, other site

== ENCOUNTER 2023-09-27 13:36 | Outpatient (CLI) | payer MEDICARE, OTHER | END 2023-09-27 13:37 | disposition home or self-care (01) | LOC: RT 13:36 | PROVIDERS: ATTEND Internal Medicine Cardiovascular Disease | DX: Z79.899 Other long term (current) drug therapy (principal); R30.0 Dysuria; R06.2 Wheezing; R05.1 Acute cough; M85.88 Other specified disorders of bone density and structure, other site | CPT/HCPCS: 93005 ==

== ENCOUNTER 2023-11-06 10:10 | Outpatient (CLI) | payer MEDICARE, OTHER ==
[2023-11-06 14:48] LABS: BASOPHILS % (AUTO) 2.2 %; EOSINOPHILS % (AUTO) 5.2 %; HCT - HEMATOCRIT 38.9 % (37.0-47.0); HGB - HEMOGLOBIN 12.6 g/dL (12.0-16.0); LYMPHOCYTES % (AUTO) 15.1 %; MEAN CORPUSCULAR HEMOGLOBIN 30.1 pg (27.0-31.0); MEAN CORPUSCULAR HGB CONC 32.4 g/dL (32.0-36.0); MEAN CORPUSCULAR VOLUME 93.1 fL (81.0-99.0); MEAN PLATELET VOLUME 9.3 fL (7.9-10.8); MONOCYTES % (AUTO) 24.5 %; NEUTROPHILS % (AUTO) 51.1 %; PLT - PLATELET COUNT 719 10^3/uL (130-450); RED BLOOD COUNT 4.18 10^6/uL (4.20-5.40); RED CELL DISTRIBUTION WIDTH 15.2 % (12.0-15.0); WHITE BLOOD COUNT 6.9 x10^3/uL (4.8-10.8)
[2023-11-06 14:49] LABS: INR 1.4 (0.8-1.2)
[2023-11-06 15:14] LABS: ABNORMAL LYMPHS % (MANUAL) 0 %
[2023-11-06 15:37] LABS: CALCIUM 9.8 mg/dL (8.5-10.3); CREATININE 0.8 mg/dL (0.6-1.3)
[2023-11-06 16:24] LABS: BAND NEUTROPHILS % (MANUAL) 5 %; DIFFERENTIAL COMMENT MANUAL DIFFERENTIAL; EOSINOPHILS # (MANUAL) 0.1 10^3/uL (0-0.7); LYMPHOCYTES # (MANUAL) 1.7 10^3/uL (1.5-3.5); LYMPHOCYTES % (MANUAL) 23 %; METAMYELOCYTES % (MANUAL) 1 %; MONOCYTES # (MANUAL) 1.4 10^3/uL (0.0-1.0); NEUTROPHILS # (MANUAL) 3.7 10^3/uL (1.5-6.6); PLATELET ESTIMATE, MANUAL INCREASED (>450,000) (NORMAL); PLATELET MORPHOLOGY NORMAL APPEARANCE (NORMAL); RBC MORPHOLOGY (MULTIPLE) NORMAL APPEARANCE (NORMAL); REACTIVE LYMPHS % (MANUAL) 1 %
== END 2023-11-06 10:11 | disposition home or self-care (01) ==
LOC: LAB.S 10:10
PROVIDERS: ATTEND Internal Medicine Cardiovascular Disease
DX: I48.92 Unspecified atrial flutter (principal); I48.0 Paroxysmal atrial fibrillation
CPT/HCPCS: 36415; 80048; 85025; 85610

== ENCOUNTER 2023-11-21 10:52 | Outpatient (CLI) | payer MEDICARE, OTHER ==
[2023-11-21 11:12] LABS: BASOPHILS # (AUTO) 0.1 10^3/uL (0.0-0.1); BASOPHILS % (AUTO) 2.1 %; EOSINOPHILS # (AUTO) 0.3 10^3/uL (0.0-0.7); EOSINOPHILS % (AUTO) 5.3 %; HCT - HEMATOCRIT 41.7 % (37.0-47.0); HGB - HEMOGLOBIN 13.4 g/dL (12.0-16.0); LYMPHOCYTES % (AUTO) 15.9 %; MEAN CORPUSCULAR HEMOGLOBIN 29.6 pg (27.0-31.0); MEAN CORPUSCULAR HGB CONC 32.1 g/dL (32.0-36.0); MEAN CORPUSCULAR VOLUME 92.3 fL (81.0-99.0); MEAN PLATELET VOLUME 8.9 fL (7.9-10.8); MONOCYTES # (AUTO) 1.6 10^3/uL (0.0-1.0); NEUTROPHILS % (AUTO) 47.7 %; RED BLOOD COUNT 4.52 10^6/uL (4.20-5.40); RED CELL DISTRIBUTION WIDTH 14.8 % (12.0-15.0); WHITE BLOOD COUNT 6.2 x10^3/uL (4.8-10.8)
[2023-11-21 11:22] LABS: SLIDE REVIEW? Indicated
[2023-11-21 11:28] LABS: ALBUMIN 4.3 g/dL (3.2-5.5); ALBUMIN/GLOBULIN RATIO 1.4 (1.0-2.2); BILIRUBIN,TOTAL 0.6 mg/dL (0.2-1.0); CALCIUM 9.8 mg/dL (8.5-10.3); CREATININE 0.8 mg/dL (0.6-1.3); PHOSPHORUS 3.1 mg/dL (2.5-5.0); TOTAL PROTEIN 7.3 g/dL (6.4-8.9)
[2023-11-21 11:44] LABS: PLATELET ESTIMATE, MANUAL INCREASED (>450,000) (NORMAL)
[2023-11-21 11:54] LABS: PLT - PLATELET COUNT 936 10^3/uL (130-450)
== END 2023-11-21 10:53 | disposition home or self-care (01) ==
LOC: LAB 10:52
PROVIDERS: ATTEND Internal Medicine Hematology & Oncology
DX: C92.10 Chronic myeloid leukemia, BCR/ABL-positive, not having achieved remission (principal)
CPT/HCPCS: 36415; 80053; 82728; 84100; 85025

== ENCOUNTER 2023-12-05 11:54 | Outpatient (CLI) | payer MEDICARE, OTHER ==
[2023-12-05 14:47] LABS: BASOPHILS # (AUTO) 0.1 10^3/uL (0.0-0.1); BASOPHILS % (AUTO) 1.9 %; EOSINOPHILS # (AUTO) 0.3 10^3/uL (0.0-0.7); EOSINOPHILS % (AUTO) 5.5 %; HCT - HEMATOCRIT 40.2 % (37.0-47.0); HGB - HEMOGLOBIN 13.1 g/dL (12.0-16.0); LYMPHOCYTES # (AUTO) 0.8 10^3/uL (1.5-3.5); LYMPHOCYTES % (AUTO) 14.2 %; MEAN CORPUSCULAR HEMOGLOBIN 30.1 pg (27.0-31.0); MEAN CORPUSCULAR HGB CONC 32.6 g/dL (32.0-36.0); MEAN CORPUSCULAR VOLUME 92.4 fL (81.0-99.0); MONOCYTES # (AUTO) 1.3 10^3/uL (0.0-1.0); MONOCYTES % (AUTO) 23.4 %; NEUTROPHILS # (AUTO) 2.9 10^3/uL (1.5-6.6); PLT - PLATELET COUNT 717 10^3/uL (130-450); RED BLOOD COUNT 4.35 10^6/uL (4.20-5.40); RED CELL DISTRIBUTION WIDTH 14.5 % (12.0-15.0); WHITE BLOOD COUNT 5.7 x10^3/uL (4.8-10.8)
[2023-12-05 15:06] LABS: ALBUMIN 4.2 g/dL (3.2-5.5); ALBUMIN/GLOBULIN RATIO 1.7 (1.0-2.2); BILIRUBIN,TOTAL 0.6 mg/dL (0.2-1.0); CREATININE 0.7 mg/dL (0.6-1.3); PHOSPHORUS 3.2 mg/dL (2.5-5.0); TOTAL PROTEIN 6.7 g/dL (6.4-8.9)
[2023-12-05 15:15] LABS: FERRITIN 24.7 ng/mL (11.0-306.8)
== END 2023-12-05 11:55 | disposition home or self-care (01) ==
LOC: LAB.S 11:54
PROVIDERS: ATTEND Internal Medicine Hematology & Oncology
DX: C92.10 Chronic myeloid leukemia, BCR/ABL-positive, not having achieved remission (principal)
CPT/HCPCS: 36415; 80053; 82728; 84100; 85025

== ENCOUNTER 2023-12-07 16:18 | Outpatient (CLI) | payer MEDICARE, OTHER ==
--- NOTE | 2023-12-07 20:49 | XRAY Report ---
PROCEDURE: Chest 2V INDICATIONS: ACUTE COUGH TECHNIQUE: 2 views of the chest were obtained. COMPARISON: None. FINDINGS: Surgical changes and devices: None. Lungs and pleura: Bilateral chronic interstitial changes noted. Right-sided pleural effusion associa estuardo with atelectasis and or infiltrate . Mediastinum: Mediastinal contours appear normal. Heart size is normal. Bones and chest wall: No suspicious bony lesions. Overlying soft tissues appear unremarkable. IMPRESSION: Right-sided pleural effusion, associated atelectasis and or infiltrate. Hyperinflation, chronic interstitial changes and biapical pulmonary scarring. Reviewed by: Wale Calvin MD on 12/07/2023 7:47 PM AKDT Approved by: Wale Calvin MD on 12/07/2023 7:47 PM AKDT Station ID: [id number]
== END 2023-12-07 16:19 | disposition home or self-care (01) ==
LOC: DI 16:18
PROVIDERS: ATTEND Internal Medicine
DX: J90 Pleural effusion, not elsewhere classified (principal)

== ENCOUNTER 2024-01-04 11:12 | Outpatient (CLI) | payer MEDICARE, OTHER ==
--- NOTE | 2024-01-04 12:42 | XRAY Report ---
PROCEDURE: Chest 2V INDICATIONS: COUGH TECHNIQUE: 2 views of the chest were acquired. COMPARISON: 12/07/2023, 09/27/2023. FINDINGS: Surgical changes and devices: None. Lungs and pleura: Stable blunting of the right costophrenic angle on the frontal view. Biapical scar ring is unchanged. Mediastinum: Mediastinal contours appear normal. Heart size is normal. Bones and chest wall: No suspicious bony lesions. Overlying soft tissues appear unremarkable. IMPRESSION: Stable scarring of the right costophrenic angle versus small right pleural effusion. Given persistenc e, consider chest CT for complete characterization. Reviewed by: Alejandro Hernández MD on 01/04/2024 12:40 PM PDT Approved by: Alejandro Hernández MD on 01/04/2024 12:40 PM PDT Station ID: [id number]
[2024-01-04 15:11] LABS: BASOPHILS % (AUTO) 2.3 %; EOSINOPHILS % (AUTO) 6.4 %; HCT - HEMATOCRIT 41.2 % (37.0-47.0); HGB - HEMOGLOBIN 13.1 g/dL (12.0-16.0); LYMPHOCYTES % (AUTO) 20.3 %; MEAN CORPUSCULAR HEMOGLOBIN 29.8 pg (27.0-31.0); MEAN CORPUSCULAR HGB CONC 31.8 g/dL (32.0-36.0); MEAN CORPUSCULAR VOLUME 93.6 fL (81.0-99.0); MEAN PLATELET VOLUME 8.9 fL (7.9-10.8); MONOCYTES % (AUTO) 27.3 %; NEUTROPHILS % (AUTO) 41.6 %; PLT - PLATELET COUNT 790 10^3/uL (130-450); RED CELL DISTRIBUTION WIDTH 14.5 % (12.0-15.0); WHITE BLOOD COUNT 5.8 x10^3/uL (4.8-10.8)
[2024-01-04 15:26] LABS: ABNORMAL LYMPHS % (MANUAL) 0 %
[2024-01-04 15:47] LABS: ALBUMIN 4.4 g/dL (3.2-5.5); ALBUMIN/GLOBULIN RATIO 1.6 (1.0-2.2); BILIRUBIN,TOTAL 0.6 mg/dL (0.2-1.0); CALCIUM 9.9 mg/dL (8.5-10.3); CREATININE 0.8 mg/dL (0.6-1.3); PHOSPHORUS 3.5 mg/dL (2.5-5.0); TOTAL PROTEIN 7.1 g/dL (6.4-8.9)
[2024-01-04 16:08] LABS: FERRITIN 27.7 ng/mL (11.0-306.8)
[2024-01-04 16:12] LABS: BAND NEUTROPHILS % (MANUAL) 2 %; EOSINOPHILS # (MANUAL) 0.3 10^3/uL (0-0.7); LYMPHOCYTES % (MANUAL) 13 %; METAMYELOCYTES % (MANUAL) 1 %; MONOCYTES # (MANUAL) 1.8 10^3/uL (0.0-1.0); NEUTROPHILS # (MANUAL) 2.6 10^3/uL (1.5-6.6); PLATELET ESTIMATE, MANUAL INCREASED (>450,000) (NORMAL); PLATELET MORPHOLOGY NORMAL APPEARANCE (NORMAL); RBC MORPHOLOGY (MULTIPLE) NORMAL APPEARANCE (NORMAL); REACTIVE LYMPHS % (MANUAL) 5 %
[2024-01-04 16:13] LABS: DIFFERENTIAL COMMENT MANUAL DIFFERENTIAL
== END 2024-01-04 11:13 | disposition home or self-care (01) ==
LOC: DI.S 11:12
PROVIDERS: ATTEND Internal Medicine
DX: R91.8 Other nonspecific abnormal finding of lung field (principal); C92.10 Chronic myeloid leukemia, BCR/ABL-positive, not having achieved remission
CPT/HCPCS: 36415; 80053; 82728; 84100; 85025

== ENCOUNTER 2024-01-15 13:02 | Outpatient (CLI) | payer MEDICARE, OTHER ==
[2024-01-15] MEDS ORDERED: iohexoL-300 100 ML VIAL ONE (13:08)
[2024-01-15] MEDS: iohexoL-300 100 ML VIAL IVP ONE (13:59)
--- NOTE | 2024-01-15 22:26 | CT Report ---
PROCEDURE: Chest W INDICATIONS: ABN XRAY, CHRONIC COUGH CONTRAST: 100ml [id number] TECHNIQUE: After the administration of intravenous contrast, a CT scan of the chest was performed. Images were recorded and evaluated at appropriate window settings. Reformats: axial MIP of the chest, coronal and sagittal. For radiation dose reduction, the following was used: automated exposure control, adjustme nt of mA and/or kV according to patient size. COMPARISON: Chest radiograph dated 01/04/[address] dated 06/05/2021. FINDINGS: Image quality: Diagnostic. Chest wall and lower neck: No thyroid nodule which requires sonographic follow up. No breast mass. No axillary or supraclavicular adenopathy by size. Lungs and pleura: Redemonstration of numerous scattered ill-defined tree-in-bud opacities predominant ly involving the bilateral upper lobes with associated airway thickening and mild upper lobe predomin ant bronchiectasis. New 5 mm pulmonary nodule in the posterior left upper lobe (121/series 12). Addit ional close proximity 6 mm pulmonary nodule (0.8 x 0.5 cm) seen on image 134/series [address] eural effusion with mild compressive atelectasis. No pneumothorax. No septal thickening or nodularit y. Mediastinum: Heart size is normal. No pericardial effusion. No large vessel abnormality. Multiple per sistent prominent mediastinal lymph nodes measuring up to 1.0 cm in maximum short axis dimension. The se are again likely reactive in etiology. Multivessel atherosclerotic calcifications of the coronary arteries. Bones: No aggressive osseous abnormality. Stable appearance of moderate multilevel spondylosis of the imaged spine. Multiple chronic appearing mild anterior compression deformities of the mid and lower thoracic spine. Upper Abdomen: Hepatic steatosis. Other visualized upper abdominal structures appear unremarkable. IMPRESSION: Redemonstration of multiple scattered ill-defined tree-in-bud opacities predominantly involving the b ilateral upper lobes with associated airway thickening and mild upper lobe predominant bronchiectasis . A few possible new pulmonary nodules measuring between 5 and 6 mm in size in the left upper lobe. O verall, findings are stable to mildly improved. Findings may represent sequela of chronic infectious/ inflammatory process such as previous atypical organism /mycobacterial infection. Recommend follow-up CT in 3-6 months to document stability versus continued improvement. Other chronic findings as above. Reviewed by: Lenin Reyna MD on 01/15/2024 10:24 PM PDT Approved by: Lenin Reyna MD on 01/15/2024 10:24 PM PDT Station ID: [id number]
== END 2024-01-15 13:03 | disposition home or self-care (01) ==
LOC: DI 13:02
PROVIDERS: ATTEND Internal Medicine
DX: R91.8 Other nonspecific abnormal finding of lung field (principal); J47.9 Bronchiectasis, uncomplicated
CPT/HCPCS: 71260; Q9967

== ENCOUNTER 2024-01-22 12:24 | Outpatient (CLI) | payer MEDICARE, OTHER ==
[2024-01-22] MEDS ORDERED: iohexoL-300 100 ML VIAL ONE (12:25)
[2024-01-22] MEDS ORDERED: DIATRIZOATE MEGLU/DIATRIZO SOD 30 ML BOTTLE PO ONE (12:25)
[2024-01-22] MEDS: iohexoL-300 100 ML VIAL IVP ONE (14:02)
[2024-01-22] MEDS: DIATRIZOATE MEGLU/DIATRIZO SOD 30 ML BOTTLE PO ONE (14:03)
--- NOTE | 2024-01-22 16:36 | CT Report ---
PROCEDURE: Abdomen/Pelvis W INDICATIONS: RIB PAIN CONTRAST: Omni 300 100ml TECHNIQUE: After the administration of intravenous contrast, a CT scan of the abdomen and pelvis was performed. Images were recorded and evaluated at appropriate window settings. Reformats: coronal and sagittal. F or radiation dose reduction, the following was used: automated exposure control, adjustment of mA and /or kV according to patient size. COMPARISON: None. FINDINGS: Image quality: Diagnostic. Lower chest: There is a small low density right pleural effusion. Liver: No solid mass. Gallbladder: Biliary tree: No intrahepatic or extrahepatic dilation, accounting for age. Spleen: No splenomegaly. Pancreas: No pancreatic ductal dilation. Adrenals: No adrenal nodule. Kidneys and ureters: No hydronephrosis. No renal cystic lesion which requires follow up. No solid mas s. Stomach, bowel and peritoneum: No gastric or small bowel dilation. No abnormal wall thickening. No pa thologic free fluid. The appendix is not visualized; however there are no ancillary such as right low er quadrant fluid or fat stranding findings to suggest acute appendicitis. Lymph nodes: No central or retroperitoneal adenopathy. Vessels: No infrarenal aortic aneurysm. Patent portal vein. Scattered atheromatous calcifications are present throughout the abdominal aorta. PELVIS Reproductive organs: Unremarkable. Bladder: No abnormal wall thickening, accounting for underdistention. Pelvic lymph nodes: No pelvic adenopathy by size criteria. Bones: A severe compression deformity is present at the superior L3 endplate which is unchanged from the study dated 09/27/2023. Severe degenerative changes are present throughout the visualized portions of the thoracolumbar spine. No acute fracture or dislocation. Other: No significant ventral or inguinal hernia. IMPRESSION: 1. Small low-density right pleural effusion. 2. No acute intra-abdominal findings. The appendix is not visualized; however there are no ancillary findings to suggest acute appendicitis. Reviewed by: Lashonda Ramírez MD on 01/22/2024 4:35 PM PDT Approved by: Lashonda Ramírez MD on 01/22/2024 4:35 PM PDT Station ID: [id number]
== END 2024-01-22 12:25 | disposition home or self-care (01) ==
LOC: DI 12:24
PROVIDERS: ATTEND Internal Medicine
DX: J90 Pleural effusion, not elsewhere classified (principal)
CPT/HCPCS: 74177; Q9963; Q9967

== ENCOUNTER 2024-02-21 10:15 | Outpatient (CLI) | payer MEDICARE, OTHER ==
[2024-02-21 10:51] LABS: BASOPHILS # (AUTO) 0.2 10^3/uL (0.0-0.1); BASOPHILS % (AUTO) 2.9 %; EOSINOPHILS # (AUTO) 0.5 10^3/uL (0.0-0.7); EOSINOPHILS % (AUTO) 8.7 %; HCT - HEMATOCRIT 41.4 % (37.0-47.0); HGB - HEMOGLOBIN 13.6 g/dL (12.0-16.0); LYMPHOCYTES % (AUTO) 16.3 %; MEAN CORPUSCULAR HEMOGLOBIN 30.6 pg (27.0-31.0); MEAN CORPUSCULAR HGB CONC 32.9 g/dL (32.0-36.0); MEAN PLATELET VOLUME 8.6 fL (7.9-10.8); MONOCYTES # (AUTO) 1.6 10^3/uL (0.0-1.0); MONOCYTES % (AUTO) 27.7 %; NEUTROPHILS # (AUTO) 2.5 10^3/uL (1.5-6.6); RED BLOOD COUNT 4.45 10^6/uL (4.20-5.40); RED CELL DISTRIBUTION WIDTH 14.7 % (12.0-15.0); WHITE BLOOD COUNT 5.8 x10^3/uL (4.8-10.8)
[2024-02-21 10:58] LABS: ALBUMIN 4.4 g/dL (3.2-5.5); ALBUMIN/GLOBULIN RATIO 1.7 (1.0-2.2); BILIRUBIN,TOTAL 0.7 mg/dL (0.2-1.0); CALCIUM 9.8 mg/dL (8.5-10.3); CREATININE 0.8 mg/dL (0.6-1.3); PLATELET ESTIMATE, MANUAL INCREASED (>450,000) (NORMAL); POTASSIUM 3.9 mmol/L (3.5-4.5); SLIDE REVIEW? Indicated
[2024-02-21 11:18] LABS: FERRITIN 177.9 ng/mL (11.0-306.8)
[2024-02-21 15:24] LABS: PLT - PLATELET COUNT 935 10^3/uL (130-450)
== END 2024-02-21 10:16 | disposition home or self-care (01) ==
LOC: LAB 10:15
PROVIDERS: ATTEND Internal Medicine Hematology & Oncology
DX: C92.10 Chronic myeloid leukemia, BCR/ABL-positive, not having achieved remission (principal)
CPT/HCPCS: 36415; 80053; 82728; 84100; 85025

== ENCOUNTER 2024-03-20 09:24 | Outpatient (CLI) | payer MEDICARE, OTHER | END 2024-03-20 22:45 | disposition critical access hospital (66) | LOC: EMS 09:24 | DX: R06.02 Shortness of breath (principal); R05.8 Other specified cough | CPT/HCPCS: A0425; A0427 ==

== ENCOUNTER 2024-03-20 09:53 | Emergency (ER) | payer MEDICARE, OTHER ==
--- NOTE | 2024-03-20 10:32 | XRAY Report ---
PROCEDURE: Chest 2V INDICATIONS: cough/SOA TECHNIQUE: 2 views of the chest were acquired. COMPARISON: Chest films dated 01/04/2024, chest CT dated 01/15/2024. FINDINGS: Surgical changes and devices: None. Lungs and pleura: Unchanged findings. Small right pleural effusion. Mild diffuse interstitial promin ence. Patchy densities seen particularly in the apices apices are consistent with a tree-in-bud opaci ties seen suggesting a chronic infectious or inflammatory process. Mediastinum: Mediastinal contours appear normal. Heart size is normal. Bones and chest wall: No suspicious bony lesions. Overlying soft tissues appear unremarkable. IMPRESSION: Findings consistent with a grossly unchanged inflammatory or infectious process predominantly in the apices. Unchanged small right pleural effusion. Reviewed by: John Mukherjee MD on 03/20/2024 10:31 AM PDT Approved by: John Mukherjee MD on 03/20/2024 10:31 AM PDT Station ID: [id number]
--- NOTE | 2024-03-20 10:32 | ED Physician Documentation ---
PD HPI DYSPNEA - Stated complaint Stated Complaint: SOA - Chief complaint Chief Complaint: Resp - History obtained from History obtained from: Patient, EMS - History of Present Illness Timing - onset: How many days ago (has had cough for several days with dyspnea and wheezing notably today.) Timing - onset during: Rest, Light activity Timing - duration: Days Timing - details: Gradual onset, Still present Inciting event(s): URI (cough but no fevers, aches.) Improved by: Rest Worsened by: Laying flat, Coughing Associated symptoms: Cough, Wheezing. No: Chest pain / discomfort, Bilateral edema, Unilateral edema Recently seen: Not recently seen Review of Systems Constitutional: reports: Myalgias, Fatigue. denies: Fever, Chills Nose: reports: Congestion. 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: Oophrectomy HEENT: Cataracts, Tonsil/Adenoidectomy - Present Medications Home Medications: Ambulatory Orders Medication Instructions Recorded Confirmed Atorvastatin Calcium 10 mg PO DAILY 04/24/17 03/20/24 Bimatoprost [Lumigan] 1 drp OP DAILY PM 04/24/17 01/06/23 Rivaroxaban [Xarelto] 15 mg PO DAILY PM 04/24/17 03/20/24 Timolol Maleate/Pf [Timoptic 0.25% 1 drp OP BID 04/24/17 01/06/23 Ocudose Drop] Dasatinib [Sprycel] 20 tab PO DAILY 02/08/21 03/20/24 Fluticasone 220 Mcg [Flovent] 2 puffs INH BID 12/06/21 01/06/23 diltiaZEM CD [Cardizem Cd] 180 mg PO DAILY 12/06/21 03/20/24 Azithromycin 250 mg PO ONCE 01/06/23 03/20/24 Calcitonin,Madison,Synthetic 200 unit IN DAILY 01/06/23 01/06/23 [Calcitonin-Madison] Sotalol [Betapace] 80 mg PO BID 01/06/23 03/20/24 Tiotropium [place] [Spiriva 4 gm IH DAILY 01/06/23 03/20/24 Respimat] Albuterol Sulf [Ventolin Hfa 2 - 3 puffs INH QID 10 Days #1 each 03/20/24 Inhaler] Amox/Clav 875/125 [Augmentin] 1 each PO Q12H #10 tablet 03/20/24 Fluticasone Propion/Salmeterol 2 puffs IH BID 03/20/24 03/20/24 [Advair Hfa 230-21 Mcg Inhaler] Furosemide [Lasix] 20 mg PO DAILY 03/20/24 03/20/24 dexAMETHasone [Decadron] 4 mg PO DAILY #5 tablet 03/20/24 traMADol [Ultram] 50 mg PO TID PRN 03/20/24 03/20/24 - Allergies Allergies/Adverse Reactions: Allergies Allergy/AdvReac Type Severity Reaction Status Date / Time No Known Drug Allergies Allergy Verified 03/20/24 10:02 - Social History Does the pt smoke?: No Smoking Status: Never smoker Does the pt drink ETOH?: No Does the pt have substance abuse?: No - Immunizations Immunizations are current?: Yes - POLST Patient has POLST: No PD ED PE NORMAL - Vitals Vital signs reviewed: Yes - General General: Alert and oriented X 3, No acute distress, Well developed/nourished - Respiratory Respiratory: No respiratory distress, Other (has mild coarse sound right middle field. DIffuse exp whezing with prolonged expiratory phase. ) - Abdomen Abdomen: Soft, Non tender - Derm Derm: Normal color, Warm and dry - Extremities Extremities: No edema, No calf tenderness / cord - Neuro Neuro: Alert and oriented X 3, Normal speech Results - Vitals Vitals: Vital Signs - 24 hr 03/20/24 03/20/24 03/20/24 10:03 12:06 12:18 Temperature 37.6 C Heart Rate 77 83 74 Respiratory 26 H 16 16 Rate Blood Pressure 199/86 H 192/82 H O2 Saturation 95 97 03/20/24 14:26 Temperature 37.6 C Heart Rate 75 Respiratory 25 H Rate Blood Pressure 165/85 H O2 Saturation 96 Oxygen O2 Source Room air - Labs Labs: Laboratory Tests 03/20/24 10:09 Nasal Adenovirus (PCR) NOT DETECTED Nasal B. parapertussis DNA (PCR) NOT DETECTED Nasal Coronavir 229E PCR NOT DETECTED Nasal Coronavir HKU1 PCR NOT DETECTED Nasal Coronavir NL63 PCR NOT DETECTED Nasal Coronavir OC43 PCR NOT DETECTED Nasal Enterovir/Rhinovir PCR NOT DETECTED Nasal Influenza B PCR NOT DETECTED Nasal Influenza A PCR NOT DETECTED Nasal Parainfluen 1 PCR NOT DETECTED Nasal Parainfluen 2 PCR NOT DETECTED Nasal Parainfluen 3 PCR DETECTED A Nasal Parainfluen 4 PCR NOT DETECTED Nasal RSV (PCR) NOT DETECTED Nasal B.pertussis DNA PCR NOT DETECTED Nasal C.pneumoniae (PCR) NOT DETECTED Jose Rafael Human Metapneumo PCR NOT DETECTED Nasal M.pneumoniae (PCR) NOT DETECTED Nasal SARS-CoV-2 (PCR) NOT DETECTED - Rads (name of study) chest xray Relevant Findings:: Prelim report reviewed, EMP independent interpretation of test (streaky infiltrate vs atelectasis right lower fissure new compared to recent other chest xray.) PD Medical Decision Making - ED course Complexity details: reviewed results (has viral illness with wheezing and exac of her COPD. Can give Xopenex MDI (she states the albuterol here caused shakiness and has in the past too). steroids and antibiotics. She has viral illness by PCR but history of COPD and a streaky infiltrate on CXR sould be bacterial coinfection. ), re-evaluated patient (good sats and HR. She is not on oxygen at home and is doing well without any here. IMproved work of breathing after repeat neb. ), considered differential, d/w patient Departure - Departure Disposition: 01 Home, Self Care Clinical Impression: Dyspnea, Acute exacerbation of COPD with asthma, Parainfluenza infection Condition: Stable Record reviewed to determine appropriate education?: Yes Follow-Up: Courtney Cordova MD [Primary Care Provider] - Prescriptions: Amox/Clav 875/125 [Augmentin] 1 each PO Q12H #10 tablet dexAMETHasone [Decadron] 4 mg PO DAILY #5 tablet Albuterol Sulf [Ventolin Hfa Inhaler] 2 - 3 puffs INH QID 10 Days #1 each Comments: Your respiratory viral panel test finally came back showing a virus called parainfluenza virus. This will cause a flareup of your COPD and will often cause coughing and wheezing even without underlying lung disease. Your chest x-ray did show a small area of either not full expansion or possible infiltrate such as mild pneumonia. Given your underlying COPD, it is reasonable to go with an antibiotic to cover for possible coinfection even though the main symptoms are apparently viral. Continue with usual medications. Will add oral steroid Decadron for the next 5 days and Augmentin antibiotic twice daily for 5 days. In addition to help with your breathing and wheezing, for the short-term, I would suggest adding albuterol inhaler 2 to 3 puffs 4 times daily regularly and extra times if needed. Your oxygen saturation is adequate here. If you do find that your breathing is worsening or your oxygenation is worse despite the above medicines and inhaler, then please return to the ER for more treatments. I sent new prescriptions to your preferred pharmacy. Forms: PCP List Discharge Date/Time: 03/20/24 14:26
[2024-03-20] MEDS: DEXAMETHASONE 10 MG/ML VIAL IVP STA (11:49)
[2024-03-20] MEDS: AMOX/CLAV 875 MG/125 MG TABLET PO STA (11:49)
[2024-03-20 12:08] LABS: B. PARAPERTUSSIS- RESP PCR PAN NOT DETECTED; B. PERTUSSIS- RESP PCR PANEL NOT DETECTED; C. PNEUMONIAE- RESP PCR PANEL NOT DETECTED; CORONAVIRUS 229E-RESP PCR NOT DETECTED; CORONAVIRUS HKU1-RESP PCR NOT DETECTED; CORONAVIRUS NL63-RESP PCR NOT DETECTED; CORONAVIRUS OC43-RESP PCR NOT DETECTED; HUMAN METAPNEUMOVIRUS NOT DETECTED; INFLUENZA A- RESP PCR PANEL NOT DETECTED; INFLUENZA B - RESP PCR PANEL NOT DETECTED; M. PNEUMONIAE- RESP PCR PANEL NOT DETECTED; PARAINFLUENZA VIRUS 1 NOT DETECTED; PARAINFLUENZA VIRUS 2 NOT DETECTED; PARAINFLUENZA VIRUS 3 DETECTED; PARAINFLUENZA VIRUS 4 NOT DETECTED; RHINOVIRUS/ENTEROVIRUS NOT DETECTED; RSV- RESP PCR PANEL NOT DETECTED; SARS-CoV-2 -RESP PCR PANEL NOT DETECTED
[2024-03-20] MEDS: IPRATROPIUM/ALBUTEROL 3 ML NEB INH STA (12:18)
[2024-03-20 14:34] VITALS: BP 165/85; O2SAT 96
== END 2024-03-20 14:26 | disposition home or self-care (01) ==
LOC: EDUNIT# → ED 09:53
DX: J44.1 Chronic obstructive pulmonary disease with (acute) exacerbation (principal); B34.8 Other viral infections of unspecified site
CPT/HCPCS: 71046; 87633; 94640; 94664; 96374; 99284; A9270

== ENCOUNTER 2024-03-26 17:39 | Outpatient (CLI) | payer MEDICARE, OTHER | END 2024-03-26 23:59 | disposition critical access hospital (66) | LOC: EMS 17:39 | DX: R06.09 Other forms of dyspnea (principal); R06.03 Acute respiratory distress; R00.0 Tachycardia, unspecified; R60.0 Localized edema | CPT/HCPCS: A0425; A0427 ==

== ENCOUNTER 2024-03-26 18:02 | Emergency (ER) | payer MEDICARE, OTHER ==
[2024-03-26] MEDS ORDERED: NITROGLYCERIN 50 MG/250 ML 50 MG/250 ML BOTTLE IV ONE (18:18)
[2024-03-26] MEDS ORDERED: diltiaZEM INJ 5 MG/ML VIAL ONE (18:19)
[2024-03-26 18:21] LABS: ABG BASE EXCESS -7.8 mmol/L (-2.0-3.0); ABG HCO3 21.1 mmol/L (22.0-26.0); ABG OXYGEN SATURATION 99 % (94-98); ABG PCO2 56 mmHg (34-45); ALLEN TEST POSITIVE
[2024-03-26 18:22] LABS: BASOPHILS % (AUTO) 1.7 %; EOSINOPHILS % (AUTO) 5.1 %; HCT - HEMATOCRIT 47.4 % (37.0-47.0); HGB - HEMOGLOBIN 15.5 g/dL (12.0-16.0); LYMPHOCYTES % (AUTO) 11.2 %; MEAN CORPUSCULAR HEMOGLOBIN 30.6 pg (27.0-31.0); MEAN CORPUSCULAR HGB CONC 32.7 g/dL (32.0-36.0); MEAN CORPUSCULAR VOLUME 93.7 fL (81.0-99.0); MEAN PLATELET VOLUME 9.1 fL (7.9-10.8); MONOCYTES % (AUTO) 19.9 %; NEUTROPHILS % (AUTO) 54.4 %; RED BLOOD COUNT 5.06 10^6/uL (4.20-5.40); RED CELL DISTRIBUTION WIDTH 13.9 % (12.0-15.0); WHITE BLOOD COUNT 21.9 x10^3/uL (4.8-10.8)
[2024-03-26 18:23] LABS: ABG PH 7.19 (7.35-7.45); ABG PO2 200 mmHg (80-100)
[2024-03-26] MEDS: diltiaZEM INJ 125 MG in DEXTROSE 5% 100 ML IV STA (18:24)
[2024-03-26] MEDS: NITROGLYCERIN 50 MG/250 ML 50 MG/250 ML BOTTLE IV STA (18:25)
[2024-03-26 18:33] LABS: PLT - PLATELET COUNT 1233 10^3/uL (130-450)
[2024-03-26 18:35] LABS: ABNORMAL LYMPHS % (MANUAL) 0 %
--- NOTE | 2024-03-26 18:44 | XRAY Report ---
PROCEDURE: Chest 1V INDICATIONS: sob TECHNIQUE: One view of the chest was acquired. COMPARISON: Chest x-ray 03/20/2024 FINDINGS: Surgical changes and devices: None. Lungs and pleura: Mild increased vascularity with minimal effusions, right greater than left. Mediastinum: Mediastinal contours appear normal. Heart size is enlarged. Bones and chest wall: No suspicious bony lesions. Overlying soft tissues appear unremarkable. IMPRESSION: Increased vascularity with minimal effusions most consistent with edema. Reviewed by: Evelia Moralez MD on 03/26/2024 6:43 PM PDT Approved by: Evelia Moralez MD on 03/26/2024 6:43 PM PDT Station ID: [id number]
--- NOTE | 2024-03-26 18:47 | ED Physician Documentation ---
PD HPI DYSPNEA - Stated complaint Stated Complaint: SOA - Chief complaint Chief Complaint: Resp - History of Present Illness Timing - details: Abrupt onset - Additional information Additional information: 88-year-old lady with a history of A-fib, leukemia presenting with respiratory distress. The patient was seen in the ED last week and was treated for pneumonia and COPD exacerbation got a course of steroids and a course of Augmentin. Today became much much more dyspneic. En route via EMS she was given nebs with no change she was given Solu-Medrol and started on magnesium. She had a twelve-lead which showed she was in A-fib with rates up to the 130s. She initially was tripoding with respiratory rate in the 30s and O2 sat in the 80s. She was put on nonrebreather by time she got here. On arrival here the patient is unable to give any history due to respiratory distress. Written history is obtained from reviewing EMS records prior charts and discussion with her Jaskaran. Review of Systems Unable to obtain: Other (Acute illness) PD PAST MEDICAL HISTORY - Past Medical History Past Medical History: Yes Cardiovascular: Hypertension, High cholesterol, Atrial fibrillation Respiratory: Asthma, COPD, Pneumonia Endocrine/Autoimmune: None GI: Colon polyps : None HEENT: Chronic vision loss, Glaucoma, Macular degeneration Psych: None Musculoskeletal: Chronic back pain Derm: None Other Past Medical History: Leukemia - Past Surgical History Past Surgical History: Yes 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, Colonoscopy /[employer]LY[employer]: Oophrectomy HEENT: Cataracts, Tonsil/Adenoidectomy - Present Medications Home Medications: Ambulatory Orders Medication Instructions Recorded Confirmed Atorvastatin Calcium 10 mg PO DAILY 04/24/17 03/20/24 Bimatoprost [Lumigan] 1 drp OP DAILY PM 04/24/17 01/06/23 Rivaroxaban [Xarelto] 15 mg PO DAILY PM 04/24/17 03/20/24 Timolol Maleate/Pf [Timoptic 0.25% 1 drp OP BID 04/24/17 01/06/23 Ocudose Drop] Dasatinib [Sprycel] 20 tab PO DAILY 02/08/21 03/20/24 Fluticasone 220 Mcg [Flovent] 2 puffs INH BID 12/06/21 01/06/23 diltiaZEM CD [Cardizem Cd] 180 mg PO DAILY 12/06/21 03/20/24 Azithromycin 250 mg PO ONCE 01/06/23 03/20/24 Calcitonin,Ettrick,Synthetic 200 unit IN DAILY 01/06/23 01/06/23 [Calcitonin-Ettrick] Sotalol [Betapace] 80 mg PO BID 01/06/23 03/20/24 Tiotropium Meldrim [Spiriva 4 gm IH DAILY 01/06/23 03/20/24 Respimat] Albuterol Sulf [Ventolin Hfa 2 - 3 puffs INH QID 10 Days #1 each 03/20/24 Inhaler] Amox/Clav 875/125 [Augmentin] 1 each PO Q12H #10 tablet 03/20/24 Fluticasone Propion/Salmeterol 2 puffs IH BID 03/20/24 03/20/24 [Advair Hfa 230-21 Mcg Inhaler] Furosemide [Lasix] 20 mg PO DAILY 03/20/24 03/20/24 dexAMETHasone [Decadron] 4 mg PO DAILY #5 tablet 03/20/24 traMADol [Ultram] 50 mg PO TID PRN 03/20/24 03/20/24 - Allergies Allergies/Adverse Reactions: Allergies Allergy/AdvReac Type Severity Reaction Status Date / Time No Known Drug Allergies Allergy Verified 03/26/24 18:11 - Social History Does the pt smoke?: No Smoking Status: Never smoker Does the pt drink ETOH?: No Does the pt have substance abuse?: No - Immunizations Immunizations are current?: Yes - POLST Patient has POLST: No PD ED PE NORMAL - Vitals Vital signs reviewed: Yes - General General: Other - HEENT HEENT: Atraumatic, Pharynx benign - Neck Neck: Other - Cardiac Cardiac: Other - Respiratory Respiratory: Other (Severe respiratory distress distended neck veins tachycardic, irregular positive respiratory distress, diffuse rales and rhonchi) - Extremities Extremities: Other (Trace pedal edema bilaterally) - Neuro Neuro: No motor deficit, No sensory deficit Results - Vitals Vitals: Vital Signs - 24 hr 03/26/24 03/26/24 03/26/24 18:11 18:24 18:28 Temperature 36.8 C Heart Rate 130 H 120 H 131 H Respiratory 42 H 41 H Rate Blood Pressure 184/120 H 204/124 H O2 Saturation 99 93 03/26/24 03/26/24 03/26/24 18:30 18:36 18:40 Temperature Heart Rate 121 H 116 H 116 H Respiratory 38 H 37 H 39 H Rate Blood Pressure 204/108 H 194/113 H 190/108 H O2 Saturation 84 L 97 03/26/24 03/26/24 03/26/24 18:42 18:49 18:50 Temperature Heart Rate 116 H 111 H 110 H Respiratory 38 H 38 H 38 H Rate Blood Pressure 186/123 H 175/111 H 176/104 H O2 Saturation 99 96 96 03/26/24 03/26/24 19:16 19:27 Temperature Heart Rate 100 91 Respiratory 30 H 23 Rate Blood Pressure 135/80 H 126/75 O2 Saturation 97 97 Oxygen O2 Source CPAP Oxygen Flow Rate 15 - EKG (time done) 1810 EKG releavant findings:: EKG personally interpreted by author of this note. Relevant findings are: Atrial fibrillation with rapid ventricular response rate 133. She has hyperacute T waves V2 V3 question STEMI versus LVH. No other obvious acute ischemic changes noted. This is markedly changed compared with last EKG from early 2023. 1903 EKG releavant findings:: EKG personally interpreted by author of this note. Relevant findings are: Now has sinus tachycardia with a rate of 103. Likely LVH. The previously seen hyperacute appearing T waves are much better now that her rate is controlled.The EKG is much improved compared to the EKG from 6:10 PM. - Labs Labs: Laboratory Tests 03/26/24 03/26/24 03/26/24 18:10 18:15 18:15 WBC 21.9 H RBC 5.06 Hgb 15.5 Hct 47.4 H MCV 93.7 MCH 30.6 MCHC 32.7 RDW 13.9 Plt Count 1233 H* MPV 9.1 Neut # (Auto) Not Reportable Lymph # (Auto) Not Reportable Charlton # (Auto) Not Reportable Eos # (Auto) Not Reportable Baso # (Auto) Not Reportable Absolute Nucleated RBC Not Reportable Total Counted 100 Band Neuts % (Manual) 2 Abnorm Lymph % (Manual) 0 Metamyelocytes % 1 H Myelocytes % 3 H Nucleated RBC % Not Reportable Neutrophils # (Manual) 13.1 H Lymphocytes # (Manual) 3.1 Monocytes # (Manual) 3.1 H Eosinophils # (Manual) 1.5 H Basophils # (Manual) 0.2 H Differential Comment MANUAL DIFFERENTIAL Platelet Estimate INCREASED (>450,000) Platelet Morphology 1+ GIANT PLATELETS RBC Morph Micro Appear NORMAL APPEARANCE Bld Gas Analysis Time 1820 Sample Site LEFT RADIAL ABG pH 7.19 L* ABG pCO2 56 H ABG pO2 200 H* ABG HCO3 21.1 L ABG Total CO2 23.0 ABG O2 Saturation 99 H ABG Base Excess -7.8 L Oscar Test POSITIVE O2 Delivery Device NON REBREATHER MASK FiO2 100.00 Sodium Potassium Chloride Carbon Dioxide Anion Gap BUN Creatinine Estimated GFR (MDRD) Glucose Lactic Acid < 0.2 L Calcium Phosphorus Magnesium Total Bilirubin AST ALT Alkaline Phosphatase Troponin I High Sens B-Natriuretic Peptide Total Protein Albumin Globulin Albumin/Globulin Ratio 03/26/24 03/26/24 03/26/24 18:15 18:35 19:15 WBC RBC Hgb Hct MCV MCH MCHC RDW Plt Count MPV Neut # (Auto) Lymph # (Auto) Charlton # (Auto) Eos # (Auto) Baso # (Auto) Absolute Nucleated RBC Total Counted Band Neuts % (Manual) Abnorm Lymph % (Manual) Metamyelocytes % Myelocytes % Nucleated RBC % Neutrophils # (Manual) Lymphocytes # (Manual) Monocytes # (Manual) Eosinophils # (Manual) Basophils # (Manual) Differential Comment Platelet Estimate Platelet Morphology RBC Morph Micro Appear Bld Gas Analysis Time 191 Sample Site RIGHT RADIAL ABG pH 7.19 L* ABG pCO2 65 H* ABG pO2 107 H ABG HCO3 24.2 ABG Total CO2 26.1 ABG O2 Saturation 97 ABG Base Excess -5.5 L Oscar Test POSITIVE O2 Delivery Device FiO2 Sodium 127 L Potassium 4.1 Chloride 94 L Carbon Dioxide 25 Anion Gap 8.0 BUN 8 Creatinine 0.7 Estimated GFR (MDRD) 79 L Glucose 331 H Lactic Acid Calcium 9.5 Phosphorus 4.8 Magnesium 2.2 Total Bilirubin 0.8 AST 22 ALT 22 Alkaline Phosphatase 69 Troponin I High Sens 242.4 H* B-Natriuretic Peptide 642 H Total Protein 7.5 Albumin 4.5 Globulin 3.0 Albumin/Globulin Ratio 1.5 - Rads (name of study) cxr Relevant Findings:: Prelim report reviewed, Final report received, EMP independent interpretation of test (Pulmonary edema) PD Medical Decision Making - ED course Complexity details: reviewed old records, reviewed results, re-evaluated patient, considered differential, d/w retirement sales consultant (STEMI ED doc at [facility] Dr. Aguillon) ED course: Patient was evaluated urgently in room 2 history is obtained from EMS. The patient has an initial ABG which shows pH 7.19 pCO2 56 pO2 199.7. The EKG was reviewed as above which does show question STEMI. This was discussed with Dr. Aguillon the ED doc at [facility] who forwarded this on to their lighting adviser that was not definitive for STEMI criteria and agree with my plan to stabilize this patient's respiratory status. She appears to be in acute pulmonary edema and respiratory distress to that and we started her on BiPAP, nitroglycerin drip and diltiazem drip for rate control. Her heart rate is improving and her blood pressure is trending down as is her work of breathing. Will repeat an EKG now that her heart rate is better and repeat a blood gas.She has been treated with nitrates rate control and heparin bolus. Will start drip. Repeat EKG does still does have some anterior ST changes heart rate is better. Her troponin is markedly elevated. I discussed the case again with Dr. Aguillon from [facility] who accepts the patient in transfer after discussion with her interventionalists. Through course the emergency department her work of breathing her mottling and color are all much much improved. Her second ABG did not show a great deal of improvement on the BiPAP though overall her clinical status is much much better. We will transfer her via air ambulance to [facility] for further treatment. At the time of turnover to oncoming doctor Dr. Ohara her heart rate is in the 80s her blood pressure is 130/80 saturation is 98% on the BiPAP she is awake alert and in no distress aside from her respiratory rate elevated at about 24. EKG now shows sinus rhythm with rate of 103 the ischemic appearing changes appear better. Repeat blood gases pending at this time. Her work of breathing and overall appearance is much much improved. She is no longer mottled and purple she is mentating much much better. She has marked elevation of her troponin of greater than 200.Dr. Ohara will discuss the patient's current status with the air ambulance crew to determine whether BiPAP transfer versus intubating her prior to flight. Her clinical status overall is much much improved Despite the blood gas not improving much. It would be reasonable to transport her on BiPAP and repeat another gas upon arrival at [facility]. Oxygenation is better work of breathing much much better blood pressure and heart rate much better. - Critical Care Time(min): 35 Time Includes: Direct patient care, Review records, Reassess patient Data interpretation: Labs, Pulse ox, ABG, CXR, Prior EKG Departure - Departure Disposition: 02 Transfer Acute Care Hosp Clinical Impression: Acute [place], Pulmonary edema, Respiratory failure Condition: Critical Forms: PCP List
[2024-03-26 19:03] LABS: ALBUMIN 4.5 g/dL (3.2-5.5); ALBUMIN/GLOBULIN RATIO 1.5 (1.0-2.2); BILIRUBIN,TOTAL 0.8 mg/dL (0.2-1.0); CALCIUM 9.5 mg/dL (8.5-10.3); CREATININE 0.7 mg/dL (0.6-1.3); MAGNESIUM 2.2 mg/dL (1.7-2.3); PHOSPHORUS 4.8 mg/dL (2.5-5.0); POTASSIUM 4.1 mmol/L (3.5-4.5); TOTAL PROTEIN 7.5 g/dL (6.4-8.9)
[2024-03-26 19:05] LABS: TROPONIN I HIGH SENSITIVITY 242.4 ng/L (2.3-14.8)
[2024-03-26 19:18] LABS: BAND NEUTROPHILS % (MANUAL) 2 %; BASOPHILS # (MANUAL) 0.2 10^3/uL (0-0.1); BASOPHILS % (MANUAL) 1 %; EOSINOPHILS # (MANUAL) 1.5 10^3/uL (0-0.7); LYMPHOCYTES # (MANUAL) 3.1 10^3/uL (1.5-3.5); LYMPHOCYTES % (MANUAL) 14 %; METAMYELOCYTES % (MANUAL) 1 %; MONOCYTES # (MANUAL) 3.1 10^3/uL (0.0-1.0); MYELOCYTES % (MANUAL) 3 %; NEUTROPHILS # (MANUAL) 13.1 10^3/uL (1.5-6.6)
[2024-03-26 19:19] LABS: DIFFERENTIAL COMMENT MANUAL DIFFERENTIAL; PLATELET ESTIMATE, MANUAL INCREASED (>450,000) (NORMAL); PLATELET MORPHOLOGY 1+ GIANT PLATELETS (NORMAL); RBC MORPHOLOGY (MULTIPLE) NORMAL APPEARANCE (NORMAL)
[2024-03-26 19:23] LABS: ABG BASE EXCESS -5.5 mmol/L (-2.0-3.0); ABG HCO3 24.2 mmol/L (22.0-26.0); ABG OXYGEN SATURATION 97 % (94-98); ABG PO2 107 mmHg (80-100); ABG TCO2 26.1 MMOL/L (21.0-29.0)
[2024-03-26 19:24] LABS: ALLEN TEST POSITIVE
[2024-03-26 19:29] LABS: ABG PCO2 65 mmHg (34-45); ABG PH 7.19 (7.35-7.45)
[2024-03-26 20:23] VITALS: BP 124/78; O2SAT 98
--- NOTE | 2024-04-03 22:48 | ED Physician Documentation ---
ED Addendum - Addendum Addendum: 04/03/24 22:46 Received sign-out/turn over of care on this patient from Dr. Borjas; please see his note for complete H+P. This patient has had a complicated ED course best understood by reviewing Dr. Borjas's note. The only issue at sign out was whether the patient would benefit from intubated prior to leaving with [facility] for transfer. The concerns in this regard include tachypnea, high oxygen requirement, and recent ABG with high CO2 level. She was put on CPAP shortly before I received sign out. Shortly after I received sign-out, [facility] pulling machine tender. The patient is tolerating the CPAP well with good pulse ox. she is awake and alert and responds to questions rapidly (mostly with hand signals such as "thumbs up" due to CPAP mask) and follows commands quickly and accurately. her tachycardia has also improved over the past 30 minutes. I d/w [facility] crew option for me to undertake intubation before they take over care and then transfer. At this time, patient does not appear to require, nor likely benefit from, intubation and [facility] crew is in agreement. She is transferred to [place]land facility by [facility].
== END 2024-03-26 20:23 | disposition short-term general hospital (02) ==
LOC: EDUNIT# → ED 18:02
DX: I21.9 Acute myocardial infarction, unspecified (principal); J81.1 Chronic pulmonary edema; J96.90 Respiratory failure, unspecified, unspecified whether with hypoxia or hypercapnia; I48.91 Unspecified atrial fibrillation
CPT/HCPCS: 36415; 36600; 80053; 82803; 83605; 83735; 83880; 84100; 84484; 85025; 87040; 93005; 94660; 96374; 96375; 99291